=== PATIENT | female | born 1965 | race Caucasian/White ===

== ENCOUNTER 2016-11-14 17:43 | Emergency (ER) | payer BC, OTHER ==
[2016-11-14 17:48] VITALS: BP 131/87
[2016-11-14 18:35] LABS: APPEARANCE,URINE SLIGHTLY-CLOUDY; BILIRUBIN,URINE NEGATIVE (NEGATIVE); GLUCOSE, URINE NEGATIVE (NEGATIVE); KETONES,URINE NEGATIVE (NEGATIVE); LEUKOCYTE ESTERASE,URINE NEGATIVE (NEGATIVE); NITRITE,URINE NEGATIVE (NEGATIVE); PROTEIN,URINE NEGATIVE (NEGATIVE); URINE SPECIFIC GRAVITY 1.003; UROBILINOGEN,URINE NEGATIVE mg/dL (<2.0)
--- NOTE | 2016-11-14 18:44 | ER Document Report ---
ED General - General Chief Complaint: Flank Pain Stated Complaint: ABDOMINAL PAIN Time Seen by Provider: 11/14/16 18:40 Mode of Arrival: Ambulatory Information source: Patient Notes: Patient states she has had some burning in her urine approximate month ago this is now gone away and she just has flank pain. She does have some vomiting and diarrhea. She also states she has cough cold and congestion for 2 days. She states she has had kidney infections in the past. The pain is been constant. It is in the bilateral flanks. It radiates to the abdomen. Nothing makes it better or worse. It is an aching sensation. It is moderate. She is also had some subjective fever and chills at home. TRAVEL OUTSIDE OF THE [place] IN LAST 30 DAYS: No - Related Data Allergies/Adverse Reactions: beeswax [Beeswax] Allergy (Verified 11/14/16 17:48) ceftriaxone [From Rocephin] Allergy (Verified 11/14/16 17:48) erythromycin base [Erythromycin Base] Allergy (Verified 11/14/16 17:48) Penicillins Allergy (Verified 11/14/16 17:48) Past Medical History - General Information source: Patient - Social History Smoking Status: Current Every Day Smoker Chew tobacco use (# tins/day): No Frequency of alcohol use: Rare Drug Abuse: None Family History: Reviewed & Not Pertinent Neurological Medical History: Reports: Hx Migraine Renal/ Medical History: Denies: Hx Peritoneal Dialysis Past Surgical History: Reports: Hx Breast Surgery - bilateral, Hx Section - Immunizations Hx Diphtheria, Pertussis, Tetanus Vaccination: Yes Review of Systems - Review of Systems Constitutional: Chills, Fever, Malaise Cardiovascular: denies: Chest pain, Palpitations Respiratory: Cough Gastrointestinal: Diarrhea, Vomiting -: Yes All other systems reviewed and negative Physical Exam - Vital signs Vitals: Temp Pulse Resp BP Pulse Ox 98.5 F 81 18 131/87 H 96 11/14/16 17:46 11/14/16 17:46 11/14/16 17:46 11/14/16 17:46 11/14/16 17:46 Interpretation: Normal - General General appearance: Appears well, Alert - HEENT Head: Normocephalic, Atraumatic Eyes: Normal Pupils: PERRL - Respiratory Respiratory status: No respiratory distress Chest status: Nontender Breath sounds: Normal Chest palpation: Normal - Cardiovascular Rhythm: Regular Heart sounds: Normal auscultation Murmur: No - Abdominal Inspection: Normal Distension: No distension Bowel sounds: Normal Tenderness: Nontender Organomegaly: No organomegaly - Back Back: Normal, Nontender - Extremities General upper extremity: Normal inspection, Nontender, Normal color, Normal ROM , Normal temperature General lower extremity: Normal inspection, Nontender, Normal color, Normal ROM , Normal temperature, Normal weight bearing. No: Brielle's sign - Neurological Neuro grossly intact: Yes Cognition: Normal Orientation: AAOx4 Aba Coma Scale Eye Opening: Spontaneous [place] Coma Scale Verbal: Oriented [place] Coma Scale Motor: Obeys Commands [place] Coma Scale Total: 15 Speech: Normal Motor strength normal: LUE, RUE, LLE, RLE Sensory: Normal - Psychological Associated symptoms: Normal affect, Normal mood - Skin Skin Temperature: Warm Skin Moisture: Dry Skin Color: Normal Course - Vital Signs Vital signs: Temp Pulse Resp BP Pulse Ox 98.5 F 81 18 131/87 H 96 11/14/16 17:46 11/14/16 17:46 11/14/16 17:46 11/14/16 17:46 11/14/16 17:46 - Laboratory Laboratory results interpreted by me: 11/14/16 17:46 Urine Blood SMALL H Discharge - Discharge Clinical Impression: URI (upper respiratory infection) Condition: Stable Disposition: HOME, SELF-CARE Instructions: Upper Respiratory Illness ([facility]) Additional Instructions: Please follow-up with your primary care physician as soon as possible Prescriptions: Hydrocodone/Acetaminophen [[place] 5-325 mg Tablet] 1 tab PO Q6 PRN #15 tablet PRN Reason: Levofloxacin [Levaquin 750 mg Tablet] 750 mg PO DAILY #5 tablet Forms: Elevated Blood Pressure, Smoking Cessation Education
== END 2016-11-14 18:50 | disposition home or self-care (01) ==
LOC: ER 17:43
DX: J06.9 Acute upper respiratory infection, unspecified (principal); R10.9 Unspecified abdominal pain; R11.10 Vomiting, unspecified; R19.7 Diarrhea, unspecified; R05 Cough; F17.200 Nicotine dependence, unspecified, uncomplicated
CPT/HCPCS: 81001; 99284

== ENCOUNTER 2016-11-21 21:57 | Inpatient (IN) | payer SELFPAY ==
--- NOTE | 2016-11-21 23:42 | ER Document Report ---
ED General - General Chief Complaint: Flank Pain Stated Complaint: LOW BACK PAIN Time Seen by Provider: 11/21/16 23:22 TRAVEL OUTSIDE OF THE [place] IN LAST 30 DAYS: No - HPI Notes: Patient is a 50-year-old female with a history of kidney infections who presents the ED complaining of right flank pain 2-3 days. Patient states that she also has urinary frequency without any hematuria or dysuria. Patient states that she was here 1 week ago and was given Levaquin to take for 5 days for an upper respiratory infection while having flank pain at that time as well. Patient states that she was feeling better by the end of the antibiotics , but her flank pain returned. Patient still eating and drinking without any difficulties. Pt has associated nausea w/o vomiting intermittently. Patient states that she is having normal bowel movements. Nothing worsens or improves her pain that she is aware of. Pt has noticed general body ache as well. Pt was vomited once yesterday, none today. No nausea now. Pt is taking HCTZ. Patient also complains of a red area to her antecubital left space that is painful and warm to the touch that has been there for the last 1-2 days. Patient states that she noticed an insect bite to that area initially. She has not noticed any purulent discharge, streaking, or abscess formation. + smoker, denies IV drug use. Denies any headache, fever, URI, sore throat, chest pain, palpitations, syncope , cough, shortness of breath, wheeze, dyspnea, abdominal pain, diarrhea, urinary retention, vaginal discharge/odor/bleeding, loss of control of bowel or bladder, numbness/tingling, saddle anesthesia, muscle paralysis/weakness. - Related Data Allergies/Adverse Reactions: beeswax [Beeswax] Allergy (Verified 11/14/16 17:48) ceftriaxone [From Rocephin] Allergy (Verified 11/14/16 17:48) erythromycin base [Erythromycin Base] Allergy (Verified 11/14/16 17:48) Penicillins Allergy (Verified 11/14/16 17:48) Past Medical History - Social History Smoking Status: Current Every Day Smoker Family History: Reviewed & Not Pertinent Patient has suicidal ideation: No Patient has homicidal ideation: No Neurological Medical History: Reports: Hx Migraine Renal/ Medical History: Denies: Hx Peritoneal Dialysis Past Surgical History: Reports: Hx Breast Surgery - bilateral, Hx Section - Immunizations Hx Diphtheria, Pertussis, Tetanus Vaccination: Yes Review of Systems - Review of Systems Notes: REVIEW OF SYSTEMS: CONSTITUTIONAL : Denies fever, chills, or sweats. see hpi. EENT: Denies eye, ear, throat, or mouth pain or symptoms. Denies nasal or sinus congestion or discharge. Denies throat, tongue, or mouth swelling or difficulty swallowing. CARDIOVASCULAR: Denies chest pain. Denies palpitations or racing or irregular heart beat. Denies ankle edema. RESPIRATORY: Denies cough, cold, or chest congestion. Denies shortness of breath, difficulty breathing, or wheezing. GASTROINTESTINAL: see hpi GENITOURINARY: Denies difficulty urinating, painful urination, burning, frequency, blood in urine, or discharge. FEMALE GENITOURINARY: Denies vaginal bleeding, heavy or abnormal periods, irregular periods. Denies vaginal discharge or odor. MUSCULOSKELETAL: see hpi. Denies back or neck pain or stiffness. Denies joint pain or swelling. SKIN: Denies rash, lesions or sores. NEUROLOGICAL: Denies confusion or altered mental status. Denies passing out or loss of consciousness. Denies dizziness or lightheadedness. Denies headache. Denies weakness or paralysis or loss of use of either side. Denies problems with gait or speech. Denies sensory loss, numbness, or tingling. ALL OTHER SYSTEMS REVIEWED AND NEGATIVE. Dictation was performed using [employer] voice recognition software Physical Exam - Vital signs Vitals: Temp Pulse Resp BP Pulse Ox 99.2 F 89 18 121/84 100 11/21/16 22:28 11/21/16 22:28 11/21/16 22:28 11/21/16 22:28 11/21/16 22:28 Notes: PHYSICAL EXAMINATION: GENERAL: Well-appearing, well-nourished and in no acute distress. Comfortable sitting on exam table. HEAD: Atraumatic, normocephalic. EYES: Pupils equal round and reactive to light, extraocular movements intact, sclera anicteric, conjunctiva are normal. NECK: Normal range of motion, supple without lymphadenopathy. No rigidity. LUNGS: Breath sounds clear to auscultation bilaterally and equal. No wheezes rales or rhonchi. HEART: Regular rate and rhythm without murmurs, rubs, gallops. ABDOMEN: Soft, nontender, nondistended abdomen. No guarding, no rebound. No masses appreciated. hyperactive bowel sounds present. + rt CVA tenderness. Musculoskeletal: LE's b/l: FROM to passive/active. Strength 5+/5. Extremities: No cyanosis, clubbing, or edema b/l. Peripheral pulses 2+. Capillary refill less than 3 seconds. NEUROLOGICAL: Cranial nerves grossly intact. Normal speech, normal gait. Normal sensory, motor exams PSYCH: Normal mood, normal affect. SKIN: 3x3cm cellulitis (erythema, warmth, min. induration) lt antecubital space w/o abscess, streaks, discharge. Course - Re-evaluation Re-evalutation: 11/22/16 00:49 lab called with K+ of 2.3. Reviewed with Dr. Leal. KCl 80meq given PO and 20meq started IV Magnesium 2g over 20mins started IV as well Additional labs ordered along with EKG 11/22/16 03:02 EKG showed T wave depressions Hyponatremia noted mildly elevated wbc Dr. Leal recommended admission due to EKG changes Called and spoke with Dr. Marks who declined admission at this time and would like recheck labs after treatment has been running longer 11/22/16 05:25 Doxy 100mg given PO Patient does not have a provider listed in the system After discussion found out that Dr. Wheeler is her PCM Called Dr. Wheeler, awaiting return call. 2nd EKG shows U waves, BMP pending 11/22/16 05:33 Dr. Wheeler returned call and accepted patient for admit to [facility]. 11/22/16 05:35 Pt was noted to have decreasing O2 sat into the 80's. Recheck on patient and when she coughed to clear her throat, her O2 came back up to 95% on RA. 2L O2 via NC placed. Dr. Beauchamp was also consulted. 11/22/16 05:53 BMP showed continued K+ at 2.3. Pt with no new concerns or complaints. - Vital Signs Vital signs: Temp Pulse Resp BP Pulse Ox 99.2 F 89 18 92/61 L 96 11/21/16 22:28 11/21/16 22:28 11/22/16 05:36 11/22/16 05:01 11/22/16 05:36 - Laboratory Result Diagrams: 11/22/16 00:00 11/22/16 05:10 Laboratory results interpreted by me: 11/21/16 11/22/16 11/22/16 23:50 00:00 00:00 WBC 13.5 H RDW 14.9 H Absolute Neutrophils 9.9 H VBG pH VBG HCO3 Sodium 132.7 L Potassium 2.3 L* Chloride 89 L Carbon Dioxide 36 H BUN 5 L Glucose Calcium Creatine Kinase Urine Blood SMALL H 11/22/16 11/22/16 11/22/16 00:00 03:30 05:10 WBC RDW Absolute Neutrophils VBG pH 7.45 H VBG HCO3 32.7 H Sodium 134.8 L Potassium 2.3 L* Chloride 94 L Carbon Dioxide 34 H BUN 4 L Glucose 116 H Calcium 8.3 L Creatine Kinase 291 H Urine Blood Discharge - Discharge Clinical Impression: Hypokalemia Condition: Stable Disposition: ADMITTED INPATIENT Admitting Provider: Wheeler Unit Admitted: LUCERO
[2016-11-22 00:19] LABS: ABSOLUTE BASOPHILS # (AUTO) 0.1 10^3/uL (0.0-0.2); ABSOLUTE EOSINOPHILS # (AUTO) 0.2 10^3/uL (0.0-0.6); ABSOLUTE LYMPHOCYTES (AUTO) 2.4 10^3/uL (0.5-4.7); ABSOLUTE MONOCYTES (AUTO) 0.9 10^3/uL (0.1-1.4); ABSOLUTE NEUT (AUTO) 9.9 10^3/uL (1.7-8.2); BASOPHILS % (AUTO) 0.4 % (0-2); EOSINOPHILS % (AUTO) 1.4 % (0-6); HEMATOCRIT 36.4 % (36.0-47.0); HEMOGLOBIN 12.3 g/dL (12.0-15.5); HGB HCT DIFFERENCE 0.5; MEAN CORPUSCULAR HGB CONC 33.9 g/dL (32.0-36.0); MEAN CORPUSCULAR VOLUME 82 fl (80-97); MONOCYTES % (AUTO) 6.6 % (3-13); RED BLOOD COUNT 4.41 10^6/uL (3.72-5.28); RED CELL DISTRIBUTION WIDTH 14.9 % (11.5-14.0); SEGMENTED NEUTROPHILS % (AUTO) 73.6 % (42-78); WHITE BLOOD COUNT 13.5 10^3/uL (4.0-10.5)
[2016-11-22 00:27] LABS: ALANINE AMINOTRANSFERASE 22 U/L (9-52); ALBUMIN 4.1 g/dL (3.5-5.0); ALKALINE PHOSPHATASE 78 U/L (38-126); ANION GAP 8 (5-19); ASPARTATE AMINO TRANSFERASE 32 U/L (14-36); BILIRUBIN,DIRECT 0.4 mg/dL (0.0-0.4); BILIRUBIN,TOTAL 1.2 mg/dL (0.2-1.3); BLOOD UREA NITROGEN 5 mg/dL (7-20); CALCIUM 9.1 mg/dL (8.4-10.2); CARBON DIOXIDE 36 mmol/L (22-30); CHLORIDE 89 mmol/L (98-107); CREATININE RESULT 0.59 mg/dL (0.52-1.25); GLUCOSE 92 mg/dL (75-110); LIPASE 34.9 U/L (23-300); SODIUM 132.7 mmol/L (137-145); TOTAL PROTEIN 7.2 g/dL (6.3-8.2)
[2016-11-22 00:35] LABS: ADD ON TESTING BLD IN LAB ACKNOWLEDGE; POTASSIUM 2.3 mmol/L (3.6-5.0)
[2016-11-22] MEDS ORDERED: POTASSIUM CHLORIDE 10 MEQ TABLET.SA PO ONE ×6 (00:38→17:00)
[2016-11-22] MEDS ORDERED: POTASSI CL 20 MEQ/50 ML RIDER 20 MEQ/50 ML RTUPB IV ONE (00:41)
[2016-11-22 00:46] LABS: APPEARANCE,URINE CLEAR; BILIRUBIN,URINE NEGATIVE (NEGATIVE); GLUCOSE, URINE NEGATIVE (NEGATIVE); KETONES,URINE NEGATIVE (NEGATIVE); LEUKOCYTE ESTERASE,URINE NEGATIVE (NEGATIVE); NITRITE,URINE NEGATIVE (NEGATIVE); PROTEIN,URINE NEGATIVE (NEGATIVE); URINE SPECIFIC GRAVITY 1.004; UROBILINOGEN,URINE NEGATIVE mg/dL (<2.0)
[2016-11-22] MEDS ORDERED: MAGNESIUM OXIDE 400 MG TABLET PO ONE (00:53)
[2016-11-22] MEDS ORDERED: MAGNESIUM SULFATE/D5W 1 GM/100 ML RTUPB IV SCH (01:00)
[2016-11-22 01:20] LABS: MAGNESIUM 1.9 mg/dL (1.6-2.3)
[2016-11-22] MEDS ORDERED: MORPHINE SULFATE 10 MG/ML INJ IV ONE (03:31)
[2016-11-22 03:42] LABS: VENOUS BLOOD BASE EXCESS 7.5 mmol/L; VENOUS BLOOD HCO3 32.7 mmol/L (20-32); VENOUS BLOOD PCO2 48.3 mmHg (35-63); VENOUS BLOOD PH 7.45 (7.30-7.42)
[2016-11-22] MEDS ORDERED: DOXYCYCLINE HYCLATE 100 MG TABLET PO ONE (05:17)
[2016-11-22 05:40] LABS: ANION GAP 7 (5-19); BLOOD UREA NITROGEN 4 mg/dL (7-20); CALCIUM 8.3 mg/dL (8.4-10.2); CARBON DIOXIDE 34 mmol/L (22-30); CHLORIDE 94 mmol/L (98-107); CREATININE RESULT 0.54 mg/dL (0.52-1.25); GLUCOSE 116 mg/dL (75-110); SODIUM 134.8 mmol/L (137-145)
[2016-11-22 05:47] LABS: POTASSIUM 2.3 mmol/L (3.6-5.0)
[2016-11-22] MEDS ORDERED: IPRATROPIUM/ALBUTEROL 0.5-2.5 MG/3 ML AMPUL NEB PRN ×2 (08:18→14:00)
[2016-11-22] MEDS ORDERED: ACETAMINOPHEN 325 MG TABLET PO PRN (08:18)
[2016-11-22] MEDS ORDERED: ONDANSETRON HCL INJ/PF 4 MG/2 ML SDV IV PRN ×2 (08:18→14:00)
[2016-11-22] MEDS: ENOXAPARIN SODIUM INJ 40 MG/0.4 ML DISP.SYRIN SUBCUT SCH (09:23)
[2016-11-22] MEDS: POTASSI CL 40 MEQ/NS 1L 1,000 ML IV PRN (09:23)
[2016-11-22 09:28] LABS: ANION GAP 7 (5-19); BLOOD UREA NITROGEN 4 mg/dL (7-20); CALCIUM 8.5 mg/dL (8.4-10.2); CARBON DIOXIDE 34 mmol/L (22-30); CHLORIDE 95 mmol/L (98-107); CREATININE RESULT 0.55 mg/dL (0.52-1.25); GLUCOSE 93 mg/dL (75-110)
[2016-11-22 09:34] LABS: POTASSIUM 2.4 mmol/L (3.6-5.0)
[2016-11-22 09:40] LABS: CREATINE KINASE MB 3.43 ng/mL (<4.55)
[2016-11-22 09:42] LABS: TROPONIN I < 0.012 ng/mL
--- NOTE | 2016-11-22 10:01 | EKG REPORT ---
SEVERITY:- ABNORMAL ECG - SINUS RHYTHM LOW VOLTAGE IN FRONTAL LEADS REPOL ABNRM SUGGESTS ISCHEMIA, ANT-LAT LEADS PROLONGED QT INTERVAL : Confirmed by: Bri Prieto MD 22-Nov-2016 10:01:22
--- NOTE | 2016-11-22 10:02 | EKG REPORT ---
SEVERITY:- ABNORMAL ECG - SINUS RHYTHM REPOL ABNRM SUGGESTS ISCHEMIA, ANT-LAT LEADS PROLONGED QT INTERVAL : Confirmed by: Bri Prieto MD 22-Nov-2016 10:01:43
--- NOTE | 2016-11-22 10:12 | RADIOLOGY REPORT (SQ) ---
EXAM DESCRIPTION: CT ABD/PELVIS NO ORAL OR IV COMPLETED DATE/TIME: 11/22/2016 9:52 am REASON FOR STUDY: flank pain COMPARISON: None. TECHNIQUE: CT scan of the abdomen and pelvis performed without intravenous or oral contrast. Images reviewed with lung, soft tissue, and bone windows. Reconstructed coronal and sagittal MPR images revi ewed. All images stored on PACS. All CT scanners at this facility use dose modulation, iterative reconstruction, and/or weight based d osing when appropriate to reduce radiation dose to as low as reasonably achievable (ALARA). [facility]: Dose Right [facility]: CareDose [facility]: Dose Right [facility]: Teradose 4D [facility]: Smart Technologies RADIATION DOSE: Up-to-date CT equipment and radiation dose reduction techniques were employed. CTDIv ol: 6.4 mGy. DLP: 332 mGy-cm.mGy. LIMITATIONS: None. FINDINGS: LOWER CHEST: Ground-glass opacities in the lower lobes. NON-CONTRASTED LIVER, SPLEEN, ADRENALS: Evaluation limited by lack of IV contrast. No identified sign ificant masses. PANCREAS: No masses. No peripancreatic inflammatory changes. GALLBLADDER: Surgically absent. RIGHT KIDNEY AND URETER: No suspicious masses. Assessment limited by lack of IV contrast. No signif icant calcifications. No hydronephrosis or hydroureter. LEFT KIDNEY AND URETER: No suspicious masses. Assessment limited by lack of IV contrast. No signifi cant calcifications. No hydronephrosis or hydroureter. AORTA AND RETROPERITONEUM: No aneurysm. No retroperitoneal masses or adenopathy. BOWEL AND PERITONEAL CAVITY: No obvious masses or inflammatory changes. No free fluid. APPENDIX: Normal. PELVIS, BLADDER, AND ABDOMINAL WALL:No abnormal masses. No free fluid. Bladder normal. BONES: No significant findings. OTHER: No other significant finding. IMPRESSION: 1. NO SIGNIFICANT OR ACUTE PROCESS IN THE ABDOMEN OR PELVIS. 2. GROUND-GLASS OPACITIES IN THE LUNG BASES. NONSPECIFIC BUT POSSIBLE ETIOLOGIES INCLUDE PNEUMONIA, PNEUMONITIS, EDEMA, OR HEMORRHAGE. COMMENT: Quality ID # [id number]: Final reports with documentation of one or more dose reduction techniques (e.g., Automated exposure control, adjustment of the mA and/or kV according to patient size, use of iterative reconstruction technique) TECHNICAL DOCUMENTATION: JOB ID: [id number]- All Rights Reserved
--- NOTE | 2016-11-22 11:14 | PDOC CONSULTATION ---
Consultation Consult Date: 11/22/16 Attending physician:: CONCETTA BLANTON Consult reason:: Abnormal EKG History of Present Illness Admission Date/PCP: 11/22/16 08:18 Patient complains of: Generalized weakness History of Present Illness: ALLYSON OVERTON is a 50-year-old female with a history of kidney infections who presents the ED complaining of right flank pain 2-3 days. Patient states that she also has urinary frequency without any hematuria or dysuria. Patient states that she was here 1 week ago and was given Levaquin to take for 5 days for an upper respiratory infection while having flank pain at that time as well. Patient states that she was feeling better by the end of the antibiotics , but her flank pain returned. Patient still eating and drinking without any difficulties. Pt has associated nausea w/o vomiting intermittently. Patient states that she is having normal bowel movements and also some diarrhea intermittently. Nothing worsens or improves her pain that she is aware of. Pt has noticed general body ache as well. Pt was vomited once yesterday, none today. No nausea now. Pt is taking HCTZ, which she claims she takes for fluid retention.. Patient also complains of a red area to her antecubital left space that is painful and warm to the touch that has been there for the last 1-2 days. Patient states that she noticed an insect bite to that area initially. She has not noticed any purulent discharge, streaking, or abscess formation. + smoker, denies IV drug use. Denies any headache, fever, URI, sore throat, chest pain, palpitations, syncope , cough, shortness of breath, wheeze, dyspnea, abdominal pain, diarrhea, urinary retention, vaginal discharge/odor/bleeding, loss of control of bowel or bladder, numbness/tingling, saddle anesthesia, muscle paralysis/weakness. During hospitalization patient had EKGs performed which shows significant abnormalities. I was therefore asked to evaluate patient. A 2D echo was performed which is yet to be reviewed. Past Medical History Neurological Medical History: Reports: Migraine Past Surgical History Past Surgical History: Reports: Section Social History Information Source: Patient Smoking Status: Current Every Day Smoker Cigarettes Packs Per Day: 0.5 Number of Years Smokin Last Time Smoked: 11/21/2016 Frequency of Alcohol Use: None Hx Recreational Drug Use: No Drugs: None Hx Prescription Drug Abuse: No - Advance Directive Resuscitation Status: Full Code Surrogate healthcare decision maker:: Patient siblings Family History Family History: Hypertension Parental Family History Reviewed: Yes Children Family History Reviewed: Yes Sibling(s) Family History Reviewed.: Yes Medication/Allergy Home Medications: Buprenorphine HCl [Subutex 8 mg Sublingual Tablet] 8 mg PO Q12 11/22/16 Dextroamphetamine/Amphetamine [Adderall 20 mg Tablet] 20 mg PO DAILY 11/22/16 Fluoxetine HCl [Prozac] 40 mg PO DAILY 11/22/16 Gabapentin [Neurontin] 600 mg PO Q8H 11/22/16 Hydrochlorothiazide [Hydrodiuril 25 mg Tablet] 25 mg PO DAILY 11/22/16 Trazodone HCl [Desyrel] 150 mg PO QHS 11/22/16 Allergies/Adverse Reactions: beeswax [Beeswax] Allergy (Verified 11/14/16 17:48) ceftriaxone [From Rocephin] Allergy (Verified 11/14/16 17:48) erythromycin base [Erythromycin Base] Allergy (Verified 11/14/16 17:48) Penicillins Allergy (Verified 11/14/16 17:48) Review of Systems Review of Systems: Please see history of present illness and past medical history as wall. Constitutional: No fever or chills reported. Head : No recent chronic headaches, recent head injury. Eyes: No recent eye pain, diplopia, redness, discharge, acute visual changes. Ears: No recent chronic ear pain, acute hearing loss, ear discharge. Oral cavity: No recent ulcerations, bleeding, oral cavity discomfort. Neck: No recent acute neck pain reported. Hematologic: No recent easy bruising or bleeding or hematologic malignancy reported. Lymphatic: No recent lymphatic malignancy, chronic lymphadenopathy reported yet Cardiovascular system review: See history of present illness. Prior history of myocardial infarction, angina, congestive heart failure. Respiratory system review: No recent chronic cough, hemoptysis, blood clots in the lungs reported. Mild Shortness of breath on exertion Gastrointestinal system review: Negative for any recent acute or chronic abdominal pain, hematemesis, melena, recent diarrhea reported. Genitourinary system review: No recent acute or chronic hematuria, flank pain, history of recurrent UTI. Skin system review: Negative for any recent abnormal bruising, no rash, and has noted mild pruritus and mild rash recently. Neurologic: No prior history of strokes, mini strokes, seizure disorder. Psychologic: No history of major psychosis or major depression reported. Musculoskeletal: Minor aches and pains reported. No acute joint swelling reported. Endocrine: No recent polyuria, polydipsia, recent heat or cold intolerance. Physical Exam Vital Signs: Temp Pulse Resp BP Pulse Ox 99.5 F 71 20 113/69 92 11/22/16 08:10 11/22/16 08:12 11/22/16 08:10 11/22/16 08:10 11/22/16 08:10 Exam: GENERAL: well-nourished and in no acute distress. Alert and oriented x3 HEAD: Atraumatic, normocephalic. EYES: Pupils equal round and reactive to light, extraocular movements intact, sclera anicteric, conjunctiva are normal. ENT: TMs normal, nares patent, oropharynx clear without exudates. Moist mucous membranes. No oral ulcerations or bleeding gums noted NECK: supple without lymphadenopathy. Trachea is central. No cervical or axillary lymphadenopathy noted. Carotids are 2+, JVD WNL LUNGS: Respiration seems nonlabored, no significant accessory muscle action noted. Breath sounds clear to auscultation bilaterally and equal noted. No wheezes rales or rhonchi noted. No significant dullness noted on percussion. CHEST: Palpation of the chest wall shows no significant chest wall tenderness. No other significant abnormalities noted. 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 ABDOMEN: Soft, no significant tenderness appreciated, normoactive bowel sounds. No guarding, no rebound. No rigidity noted . No masses appreciated. EXTREMITIES: Pedal pulses are 1-2+, no calf tenderness noted. No clubbing or cyanosis.trace to 1+ pedal edema noted NEUROLOGICAL: Focused neurological exam showed no significant neurologic deficit. Normal speech, no focal weakness appreciated. PSYCH: Normal mood, normal affect. Judgment and insight within normal limits. SKIN: No significant ecchymosis, mild rash and some signs of pruritus noted. No significant ulcerations noted. MUSCULOSKELETAL EXAM: No significant joint swelling noted. Results Laboratory Results: 11/22/16 08:55 11/22/16 08:55 Sodium 136.0 L Potassium 2.4 L* Chloride 95 L Carbon Dioxide 34 H Anion Gap 7 BUN 4 L Creatinine 0.55 Est GFR ( Amer) > 60 Est GFR (Non-Af Amer) > 60 Glucose 93 Calcium 8.5 11/22/16 11/22/16 08:55 08:55 Creatine Kinase 205 H CK-MB (CK-2) 3.43 Troponin I < 0.012 EKG Comments: Sinus rhythm, significant T-wave inversion noted anterior precordial leads consistent with ischemia but could well be related to severe hypokalemia Impressions: Abdomen/Pelvis CT 11/22/16 00:00 IMPRESSION: 1. NO SIGNIFICANT OR ACUTE PROCESS IN THE ABDOMEN OR PELVIS. 2. GROUND-GLASS OPACITIES IN THE LUNG BASES. NONSPECIFIC BUT POSSIBLE ETIOLOGIES INCLUDE PNEUMONIA, PNEUMONITIS, EDEMA, OR HEMORRHAGE. Assessment & Plan - Diagnosis (1) Abnormal electrocardiogram Is this a current diagnosis for this admission?: Yes (2) Hypokalemia Is this a current diagnosis for this admission?: Yes (3) Pulmonary infiltrate present on computed tomography Is this a current diagnosis for this admission?: Yes - Notes Notes: Abnormal electrocardiogram: Most likely related to severe hypokalemia. Need to rule out hypomagnesemia. Recommend aggressive correction and repeat EKG. Agree with obtaining cardiac enzymes. Once hypokalemia resolved, will recommend stress test but this can be performed as an outpatient. 2D echo already been obtained will be reviewed. Hypokalemia: Could be related to HCTZ and diarrhea. Patient already on aggressive replacement protocol. Will make sure that magnesium level is also corrected. Pulmonary infiltrates noted on EKG consistent with pneumonia versus edema. 2D echo will be reviewed. Will obtain a BNP level. Patient may benefit from switch to furosemide which may not cause as much hypokalemia as HCTZ. Will continue to follow patient. As usual I thank Dr. Blanton for the kind consultation. - Time Time Spent: 30 to 50 Minutes - CODE STATUS was discussed, patient remains full code. Surrogate decision-maker unchanged. Multiple medical problems were addressed. More than 50% of the time spent coordinating care, discussing management plans with involved caregivers. Management plans discussed with involved personnels. Medical decision making was of moderate to high complexity , patient's has multiple comorbidities. Medications reviewed and adjusted accordingly: Yes
[2016-11-22] MEDS ORDERED: POTASSIUM CHLORIDE 20 MEQ/50 ML RTU IV ONE ×2 (12:00→17:00)
--- NOTE | 2016-11-22 12:14 | XCELERA REPORT ---
[address] [address] Transthoracic Echocardiogram Report Name: ALLYSON OVERTON Age: 50 yrs Gender: Female : 1965 Patient Status: Inpatient Patient Location: [address] [place] [address] Study Date: 11/22/2016 08:43 AM Height: 66 in Weight: 172 lb BSA: 1.9 m2 Procedure: A complete two-dimensional transthoracic echocardiogram was performed (2D, M-mode, spectral and color flow Doppler). The study was technically adequate with some images being suboptimal in quality. Reason For Study: edema/abnormal ekg Ordering Physician: CONCETTA BLANTON Performed By: Grace Thomas Interpretation Summary The left ventricular ejection fraction is normal. There is borderline concentric left ventricular hypertrophy. Doppler measurements suggest impaired left ventricular relaxation, which is associated with grade I/IV or mild diastolic dysfunction The left ventricle is grossly normal size. Wall motion cannot be accurately commented on, but no definite regional wall motion abnormalities noted. The right ventricular systolic function is normal. The right atrium is normal. The left atrial size is normal. There is no mitral valve stenosis. There is a trace amount of mitral regurgitation There is no aortic valve stenosis No aortic regurgitation is present. There is a mild amount of tricuspid regurgitation There is mild pulmonary hypertension by echo Right ventricular systolic pressure is estimated to be elevated at approx 40mmHg. There is no pericardial effusion. MMode/2D Measurements & Calculations RVDd: 2.9 cm LVIDd: 4.4 cm FS: 49.5 % Ao root diam: 2.9 cm IVSd: 0.89 cm LVIDs: 2.2 cm EDV(Teich): 88.9 ml LVPWd: 0.87 cm ESV(Teich): 16.8 ml Ao root area: 6.5 cm2 EF(Teich): 81.1 % LA dimension: 3.0 cm Doppler Measurements & Calculations MV E max ximena: MV P1/2t max ximena: Ao V2 max: LV V1 max P.0 cm/sec 80.5 cm/sec 122.2 cm/sec 4.0 mmHg MV A max ximena: MV P1/2t: 77.7 msec Ao max PG: LV V1 max: 77.5 cm/sec 6.0 mmHg 100.2 cm/sec MV E/A: 1.0 MVA(P1/2t): 2.8 cm2 MV dec slope: 303.4 cm/sec2 MV dec time: 0.24 sec PA V2 max: TR max ximena: 89.8 cm/sec 294.5 cm/sec PA max PG: TR max P.7 mmHg 3.2 mmHg Left Ventricle The left ventricle is grossly normal size. There is borderline concentric left ventricular hypertrophy. The left ventricular ejection fraction is normal. Doppler measurements suggest impaired left ventricular relaxation, which is associated with grade I/IV or mild diastolic dysfunction. Wall motion cannot be accurately commented on, but no definite regional wall motion abnormalities noted. Right Ventricle The right ventricle is normal in size, thickness and function. There is normal right ventricular wall thickness. The right ventricular systolic function is normal. Atria The right atrium is normal. The left atrial size is normal. Interarterial septum not well visualized and not well dopplered. Cannot comment on ASD/PFO presence. Mitral Valve The mitral valve is grossly normal. There is no mitral valve stenosis. There is a trace amount of mitral regurgitation. Aortic Valve The aortic valve is grossly normal. There is no aortic valve stenosis. No aortic regurgitation is present. Tricuspid Valve The tricuspid valve is not well visualized, but is grossly normal. There is no tricuspid stenosis. There is a mild amount of tricuspid regurgitation. There is mild pulmonary hypertension by echo. Right ventricular systolic pressure is estimated to be elevated at 30-40mmHg. Pulmonic Valve The pulmonic valve is not well seen, but is grossly normal. Great Vessels The aortic root is not well visualized but is probably normal size. The inferior vena cava appeared normal and decreased > 50% with respiration (RAP 5-10 mmHg). Effusions There is no pericardial effusion. : CONCETTA BLANTON > Magaly Pierce
--- NOTE | 2016-11-22 12:56 | PDOC H&P ---
History of Present Illness Admission Date/PCP: 11/22/16 08:18 History of Present Illness: ALLYSON OVERTON is a 50-year-old female with a history of kidney infections who presents the ED complaining of right flank pain 2-3 days. Patient states that she also has urinary frequency without any hematuria or dysuria. Patient states that she was here 1 week ago and was given Levaquin to take for 5 days for an upper respiratory infection while having flank pain at that time as well. Patient states that she was feeling better by the end of the antibiotics , but her flank pain returned. Patient still eating and drinking without any difficulties. Pt has associated nausea w/o vomiting intermittently. Patient states that she is having normal bowel movements and also some diarrhea intermittently. Nothing worsens or improves her pain that she is aware of. Pt has noticed general body ache as well. Pt was vomited once yesterday, none today. No nausea now. Pt is taking HCTZ, which she claims she takes for fluid retention.. Patient also complains of a red area to her antecubital left space that is painful and warm to the touch that has been there for the last 1-2 days. Patient states that she noticed an insect bite to that area initially. She has not noticed any purulent discharge, streaking, or abscess formation. + smoker, denies IV drug use. Denies any headache, fever, URI, sore throat, chest pain, palpitations, syncope , cough, shortness of breath, wheeze, dyspnea, abdominal pain, diarrhea, urinary retention, vaginal discharge/odor/bleeding, loss of control of bowel or bladder, numbness/tingling, saddle anesthesia, muscle paralysis/weakness. Patient also complaining some chiropractic bite Patient's initial workup in the ER with the potassium was very low and the patient have elevated white count When I saw the patient's patient still complains of bilateral back pain Patient have a history of the neuropathy in the depressions Still smokThe patient Take the hydrochlorothiazide because of the swelling in the leg and the bodyI am not sure they really patients taking the 1 tablet and may be a more than 1 tablet Past Medical History Cardiac Medical History: Reports: Hypertension Neurological Medical History: Reports: Migraine Psychiatric Medical History: Reports: Depression Past Surgical History Past Surgical History: Reports: Section Social History Smoking Status: Current Every Day Smoker Cigarettes Packs Per Day: 0.5 Number of Years Smokin Last Time Smoked: 11/21/2016 Frequency of Alcohol Use: None Hx Recreational Drug Use: No Drugs: None Hx Prescription Drug Abuse: No - Advance Directive Resuscitation Status: Full Code Family History Family History: Reviewed & Not Pertinent, Hypertension Parental Family History Reviewed: Yes Children Family History Reviewed: Yes Sibling(s) Family History Reviewed.: Yes Medication/Allergy Home Medications: Buprenorphine HCl [Subutex 8 mg Sublingual Tablet] 8 mg PO Q12 11/22/16 Dextroamphetamine/Amphetamine [Adderall 20 mg Tablet] 20 mg PO DAILY 11/22/16 Fluoxetine HCl [Prozac] 40 mg PO DAILY 11/22/16 Gabapentin [Neurontin] 600 mg PO Q8H 11/22/16 Hydrochlorothiazide [Hydrodiuril 25 mg Tablet] 25 mg PO DAILY 11/22/16 Trazodone HCl [Desyrel] 150 mg PO QHS 11/22/16 Allergies/Adverse Reactions: beeswax [Beeswax] Allergy (Verified 11/14/16 17:48) ceftriaxone [From Rocephin] Allergy (Verified 11/14/16 17:48) erythromycin base [Erythromycin Base] Allergy (Verified 11/14/16 17:48) Penicillins Allergy (Verified 11/14/16 17:48) Review of Systems Constitutional: ABSENT: chills, fever(s), headache(s), weight gain, weight loss Eyes: ABSENT: visual disturbances Ears: ABSENT: hearing changes Cardiovascular: ABSENT: chest pain, dyspnea on exertion, edema, orthropnea, palpitations Respiratory: PRESENT: cough. ABSENT: hemoptysis Gastrointestinal: ABSENT: abdominal pain, constipation, diarrhea, hematemesis, hematochezia, nausea, vomiting Genitourinary: ABSENT: dysuria, hematuria Musculoskeletal: ABSENT: joint swelling Integumentary: ABSENT: rash, wounds Neurological: ABSENT: abnormal gait, abnormal speech, confusion, dizziness, focal weakness, syncope Psychiatric: ABSENT: anxiety, depression, homidical ideation, suicidal ideation Endocrine: ABSENT: cold intolerance, heat intolerance, menstrual abnormalities, polydipsia, polyuria Hematologic/Lymphatic: ABSENT: easy bleeding, easy bruising, lymphadenopathy Physical Exam Vital Signs: Temp Pulse Resp BP Pulse Ox 98.8 F 74 19 90/57 L 91 L 11/22/16 11:55 11/22/16 11:55 11/22/16 11:55 11/22/16 11:55 11/22/16 11:55 General appearance: PRESENT: no acute distress, well-developed, well-nourished Head exam: PRESENT: atraumatic, normocephalic Eye exam: PRESENT: conjunctiva pink, EOMI, PERRLA. ABSENT: scleral icterus Ear exam: PRESENT: normal external ear exam Mouth exam: PRESENT: moist, tongue midline Neck exam: PRESENT: full ROM. ABSENT: carotid bruit, JVD, lymphadenopathy, thyromegaly Respiratory exam: PRESENT: clear to auscultation [place] Cardiovascular exam: PRESENT: RRR. ABSENT: diastolic murmur, rubs, systolic murmur Pulses: PRESENT: normal dorsalis pedis pul, +2 pedal pulses bilateral Vascular exam: PRESENT: normal capillary refill GI/Abdominal exam: PRESENT: normal bowel sounds, soft. ABSENT: distended, guarding, mass, organolmegaly, rebound, tenderness Rectal exam: PRESENT: deferred Extremities exam: PRESENT: full ROM. ABSENT: pedal edema Additional comments: The left antecubital fossa some mild redness is present Neurological exam: PRESENT: alert, awake, oriented to person, oriented to place , oriented to time, oriented to situation, CN II-XII grossly intact. ABSENT: motor sensory deficit Psychiatric exam: PRESENT: appropriate affect, normal mood. ABSENT: homicidal ideation, suicidal ideation Skin exam: PRESENT: dry, intact, warm. ABSENT: cyanosis, rash Results Laboratory Results: 11/22/16 08:55 11/22/16 08:55 Sodium 136.0 L Potassium 2.4 L* Chloride 95 L Carbon Dioxide 34 H Anion Gap 7 BUN 4 L Creatinine 0.55 Est GFR ( Amer) > 60 Est GFR (Non-Af Amer) > 60 Glucose 93 Calcium 8.5 11/22/16 11/22/16 08:55 08:55 Creatine Kinase 205 H CK-MB (CK-2) 3.43 Troponin I < 0.012 Impressions: Abdomen/Pelvis CT 11/22/16 00:00 IMPRESSION: 1. NO SIGNIFICANT OR ACUTE PROCESS IN THE ABDOMEN OR PELVIS. 2. GROUND-GLASS OPACITIES IN THE LUNG BASES. NONSPECIFIC BUT POSSIBLE ETIOLOGIES INCLUDE PNEUMONIA, PNEUMONITIS, EDEMA, OR HEMORRHAGE. Assessment & Plan - Diagnosis (1) Hypokalemia Is this a current diagnosis for this admission?: Yes Plan: Most likely a possible to the hydrochlorothiazide and patient had of this problem in the before according to the patient Will replace the potassium start on IV fluid with the potassium And currently stop the hydrochlorothiazide (2) Flank pain Is this a current diagnosis for this admission?: Yes Plan: I do not see any CVA tenderness will get the CT abdomen and pelvis without contrast to rule out other etiology (3) Abnormal electrocardiogram Is this a current diagnosis for this admission?: Yes Plan: Most likely underlying hypokalemia but will get the echocardiogram and consult the cardiology while the patient is complaining of swelling all the time to further evaluate (4) Neuropathy Is this a current diagnosis for this admission?: Yes Plan: Patient is currently taking the gabapentin (5) Depression Qualifiers: Depression Type: major depressive disorder Is this a current diagnosis for this admission?: Yes Plan: Continues to current medication (6) Smoker Is this a current diagnosis for this admission?: Yes Plan: Discussed with the patient about the smoking cessation (7) Hypertension Qualifiers: Hypertension type: essential hypertension Qualified Code(s): I10 - Essential (primary) hypertension Is this a current diagnosis for this admission?: Yes Plan: Currently stable (8) Leukocytosis Qualifiers: Leukocytosis type: unspecified Qualified Code(s): D72.829 - Elevated white blood cell count, unspecified Is this a current diagnosis for this admission?: Yes Plan: We will get the chest x-ray to rule out any pneumonia that the blood culture urine culture and continues to doxycycline (9) Left arm cellulitis Is this a current diagnosis for this admission?: Yes Plan: Patient says history of the tick bites will continues to doxycycline and warm compressions - Time Time Spent: 30 to 50 Minutes Medications reviewed and adjusted accordingly: Yes Anticipated discharge: Home Within: Other - Inpatient Certification Medical Necessity: Need For IV Fluids, Need for IV Antibiotics Post Hospital Care: D/C [facility] Consultant Documentation - Plan Summary Plan Summary: See other MD orders
--- NOTE | 2016-11-22 13:24 | RADIOLOGY REPORT (SQ) ---
EXAM DESCRIPTION: CHEST PA/LAT COMPLETED DATE/TIME: 11/22/2016 1:16 pm REASON FOR STUDY: cough COMPARISON: CT abdomen and pelvis done earlier in the day. EXAM PARAMETERS: NUMBER OF VIEWS: two views TECHNIQUE: Digital Frontal and Lateral radiographic views of the chest acquired. RADIATION DOSE: NA LIMITATIONS: none FINDINGS: LUNGS AND PLEURA: Hazy faint densities in the lower lobes. No pleural effusion. No pneum othorax. MEDIASTINUM AND HILAR STRUCTURES: No masses or contour abnormalities. HEART AND VASCULAR STRUCTURES: Heart normal size. No evidence for failure. BONES: No acute findings. HARDWARE: Clips in the upper abdomen. OTHER: No other significant finding. IMPRESSION: HAZY LOWER LOBE DENSITIES WHICH CORRESPOND WITH FINDINGS ON CT. POSSIBLE EARLY INFILTRA SERGO. TECHNICAL DOCUMENTATION: JOB ID: [id number] [employer]- All Rights Reserved
[2016-11-22] MEDS ORDERED: LEVOFLOXACIN 500 MG/D5W RTU 500 MG/100 ML RTUPB IV ONE (14:00)
[2016-11-22] MEDS ORDERED: NORMAL SALINE 1000 ML 1,000 ML IV ONE (15:43)
[2016-11-22 15:49] LABS: CREATINE KINASE MB 2.69 ng/mL (<4.55)
[2016-11-22 15:50] LABS: TROPONIN I < 0.012 ng/mL
[2016-11-22] MEDS: LANSOPRAZOLE 15 MG TAB.RAP.DR PO SCH (16:17)
[2016-11-22] MEDS: BACITRACIN ZINC OINTMENT 15 GM TP SCH (17:22)
[2016-11-22 20:19] LABS: BLOOD UREA NITROGEN 6 mg/dL (7-20); CALCIUM 7.7 mg/dL (8.4-10.2); CREATININE RESULT 0.56 mg/dL (0.52-1.25); GLUCOSE 114 mg/dL (75-110)
[2016-11-22 20:32] LABS: CREATINE KINASE MB 2.36 ng/mL (<4.55)
[2016-11-22 20:39] LABS: TROPONIN I < 0.012 ng/mL
[2016-11-22 20:43] LABS: ANION GAP 7 (5-19); CARBON DIOXIDE 26 mmol/L (22-30); CHLORIDE 107 mmol/L (98-107); POTASSIUM 3.8 mmol/L (3.6-5.0); SODIUM 139.8 mmol/L (137-145)
[2016-11-22] MEDS: GABAPENTIN 400 MG CAPSULE PO PRN (21:52)
[2016-11-22] MEDS: DOXYCYCLINE HYCLATE 100 MG TABLET PO SCH (21:52)
[2016-11-23] MEDS: POTASSI CL 40 MEQ/NS 1L 1,000 ML IV PRN (00:15)
[2016-11-23] MEDS: LANSOPRAZOLE 15 MG TAB.RAP.DR PO SCH ×2 (05:10→15:59)
[2016-11-23 05:18] LABS: BLOOD UREA NITROGEN 5 mg/dL (7-20); CALCIUM 8.1 mg/dL (8.4-10.2); CREATININE RESULT 0.55 mg/dL (0.52-1.25); GLUCOSE 81 mg/dL (75-110)
[2016-11-23 05:26] LABS: HEMATOCRIT 29.9 % (36.0-47.0); HGB HCT DIFFERENCE 0.4; LYMPHOCYTES % (AUTO) 44.2 % (13-45); MEAN CORPUSCULAR HEMOGLOBIN 28.6 pg (27.0-33.4); MEAN CORPUSCULAR HGB CONC 33.7 g/dL (32.0-36.0); MEAN CORPUSCULAR VOLUME 85 fl (80-97); RED BLOOD COUNT 3.52 10^6/uL (3.72-5.28); RED CELL DISTRIBUTION WIDTH 15.5 % (11.5-14.0); SEGMENTED NEUTROPHILS % (AUTO) 43.1 % (42-78); WHITE BLOOD COUNT 6.8 10^3/uL (4.0-10.5)
[2016-11-23 05:27] LABS: ABSOLUTE EOSINOPHILS # (AUTO) 0.2 10^3/uL (0.0-0.6); ABSOLUTE MONOCYTES (AUTO) 0.6 10^3/uL (0.1-1.4); ABSOLUTE NEUT (AUTO) 2.9 10^3/uL (1.7-8.2); BASOPHILS % (AUTO) 0.5 % (0-2); EOSINOPHILS % (AUTO) 3.2 % (0-6)
[2016-11-23 05:28] LABS: CARBON DIOXIDE 27 mmol/L (22-30); CHLORIDE 108 mmol/L (98-107); HEMOGLOBIN 10.1 g/dL (12.0-15.5); SODIUM 138.7 mmol/L (137-145)
[2016-11-23 05:36] LABS: ANION GAP 4 (5-19)
[2016-11-23] MEDS: GABAPENTIN 400 MG CAPSULE PO PRN (06:59)
--- NOTE | 2016-11-23 09:04 | PDOC PROGRESS REPORT ---
Subjective Progress Note for:: 11/23/16 Subjective:: Patient is currently doing much better. Patient's denied any chest pain denied any shortness of the breath Patient still having some mild cough Patient's denied any abdominal pain no nausea no vomiting Patients have a CT abdomen pelvis was doneWas all normal Patient seen by cardiology and echocardiogram was done was all stable Since blood pressure was running in the lower and but according to the patient patient always have a low blood pressure in the 90 range Physical Exam Vital Signs: Temp Pulse Resp BP Pulse Ox 98.5 F 75 19 118/72 91 L 11/23/16 07:14 11/23/16 07:14 11/23/16 07:14 11/23/16 07:14 11/23/16 07:14 Intake & Output 11/22/16 11/23/16 11/24/16 06:59 06:59 06:59 Intake Total 3944 Output Total 1 Balance 3943 Weight 82.7 kg General appearance: PRESENT: no acute distress, well-developed, well-nourished Head exam: PRESENT: atraumatic, normocephalic Eye exam: PRESENT: conjunctiva pink, EOMI, PERRLA. ABSENT: scleral icterus Ear exam: PRESENT: normal external ear exam Mouth exam: PRESENT: moist, tongue midline Neck exam: PRESENT: full ROM. ABSENT: carotid bruit, JVD, lymphadenopathy, thyromegaly Respiratory exam: PRESENT: clear to auscultation [place] Cardiovascular exam: PRESENT: RRR. ABSENT: diastolic murmur, rubs, systolic murmur Pulses: PRESENT: normal dorsalis pedis pul, +2 pedal pulses bilateral Vascular exam: PRESENT: normal capillary refill GI/Abdominal exam: PRESENT: normal bowel sounds, soft. ABSENT: distended, guarding, mass, organolmegaly, rebound, tenderness Rectal exam: PRESENT: deferred Neurological exam: PRESENT: alert, awake, oriented to person, oriented to place , oriented to time, oriented to situation, CN II-XII grossly intact. ABSENT: motor sensory deficit Psychiatric exam: PRESENT: appropriate affect, normal mood. ABSENT: homicidal ideation, suicidal ideation Skin exam: PRESENT: dry, intact, warm. ABSENT: cyanosis, rash Results Laboratory Results: 11/23/16 04:38 11/23/16 04:38 11/22/16 11/22/16 11/22/16 08:55 14:43 19:50 WBC RBC Hgb Hct MCV MCH MCHC RDW Plt Count Seg Neutrophils % Lymphocytes % Monocytes % Eosinophils % Basophils % Absolute Neutrophils Absolute Lymphocytes Absolute Monocytes Absolute Eosinophils Absolute Basophils Sodium 136.0 L 139.8 Potassium 2.4 L* 2.9 L* 3.8 Chloride 95 L 107 Carbon Dioxide 34 H 26 Anion Gap 7 7 BUN 4 L 6 L Creatinine 0.55 0.56 Est GFR ( Amer) > 60 > 60 Est GFR (Non-Af Amer) > 60 > 60 Glucose 93 114 H Calcium 8.5 7.7 L Magnesium 11/23/16 11/23/16 04:38 04:38 WBC 6.8 RBC 3.52 L Hgb 10.1 L D Hct 29.9 L MCV 85 MCH 28.6 MCHC 33.7 RDW 15.5 H Plt Count 177 Seg Neutrophils % 43.1 Lymphocytes % 44.2 Monocytes % 9.0 Eosinophils % 3.2 Basophils % 0.5 Absolute Neutrophils 2.9 Absolute Lymphocytes 3.0 Absolute Monocytes 0.6 Absolute Eosinophils 0.2 Absolute Basophils 0.0 Sodium 138.7 Potassium 4.0 Chloride 108 H Carbon Dioxide 27 Anion Gap 4 L BUN 5 L Creatinine 0.55 Est GFR ( Amer) > 60 Est GFR (Non-Af Amer) > 60 Glucose 81 Calcium 8.1 L Magnesium 2.0 11/22/16 11/22/16 11/22/16 08:55 08:55 14:43 Creatine Kinase 205 H 173 H CK-MB (CK-2) 3.43 Troponin I < 0.012 11/22/16 11/22/16 11/22/16 14:43 19:50 19:50 Creatine Kinase 168 H CK-MB (CK-2) 2.69 2.36 Troponin I < 0.012 < 0.012 Impressions: Abdomen/Pelvis CT 11/22/16 00:00 IMPRESSION: 1. NO SIGNIFICANT OR ACUTE PROCESS IN THE ABDOMEN OR PELVIS. 2. GROUND-GLASS OPACITIES IN THE LUNG BASES. NONSPECIFIC BUT POSSIBLE ETIOLOGIES INCLUDE PNEUMONIA, PNEUMONITIS, EDEMA, OR HEMORRHAGE. Chest X-Ray 11/22/16 00:00 IMPRESSION: HAZY LOWER LOBE DENSITIES WHICH CORRESPOND WITH FINDINGS ON CT. POSSIBLE EARLY INFILTRATES. Assessment & Plan - Diagnosis (1) Hypokalemia Is this a current diagnosis for this admission?: Yes Plan: Currently all resolved most likely related to the HCTZ (2) Flank pain Is this a current diagnosis for this admission?: Yes Plan: Most likely a chronic back pain (3) Abnormal electrocardiogram Is this a current diagnosis for this admission?: Yes Plan: Will DC the trazodone on discharge and patient's echocardiogram and cardiology evaluations done was all stable possible due to underlying hypokalemia which currently all resolved (4) Neuropathy Is this a current diagnosis for this admission?: Yes Plan: Continues to gabapentin (5) Depression Qualifiers: Depression Type: major depressive disorder Is this a current diagnosis for this admission?: Yes Plan: Continues to current medication (6) Smoker Is this a current diagnosis for this admission?: Yes Plan: Discussed with the patient about the smoking cessation (7) Hypertension Qualifiers: Hypertension type: essential hypertension Qualified Code(s): I10 - Essential (primary) hypertension Is this a current diagnosis for this admission?: Yes Plan: Currently stable (8) Leukocytosis Qualifiers: Leukocytosis type: unspecified Qualified Code(s): D72.829 - Elevated white blood cell count, unspecified Is this a current diagnosis for this admission?: Yes Plan: Due to the pneumonia (9) Left arm cellulitis Is this a current diagnosis for this admission?: Yes Plan: Patient was complaining Pain on the left upper extremities with cellulitis will get the ultrasounds of upper extremity to rule out any DVT (10) Pneumonia Qualifiers: Pneumonia type: due to unspecified organism Is this a current diagnosis for this admission?: Yes Plan: He continues to doxycycline on discharge 100 mg p.o. twice a day - Time Time Spent with patient: 15-24 minutes Medications reviewed and adjusted accordingly: Yes Anticipated discharge: Home Within: within 24 hours - Inpatient Certification Medical Necessity: Need Close Monitoring Due to Risk of Patient Decompensation, Need for IV Antibiotics Post Hospital Care: D/C Telehealth Nurse Documentation - Plan Summary Plan Summary: Plan to patient is ambulating in the hallway today DC the IV fluid and DC the IV antibiotic and repeat the blood work in the morning If the patient's blood work is all stable patients can discharged with the doxycycline 100 mg twice a day for 7 days And DC the trazodone Follow in outpatient in 1 week for further evaluate And also DC the HCTZ
[2016-11-23] MEDS: LEVOFLOXACIN 500 MG/D5W RTU 500 MG/100 ML RTUPB IV SCH (09:18)
[2016-11-23] MEDS: DOXYCYCLINE HYCLATE 100 MG TABLET PO SCH ×2 (09:20→21:30)
[2016-11-23] MEDS: BACITRACIN ZINC OINTMENT 15 GM TP SCH ×2 (09:21→16:00)
[2016-11-23] MEDS: ENOXAPARIN SODIUM INJ 40 MG/0.4 ML DISP.SYRIN SUBCUT SCH (09:21)
--- NOTE | 2016-11-23 09:46 | EKG REPORT ---
SEVERITY:- ABNORMAL ECG - SINUS RHYTHM LOW VOLTAGE THROUGHOUT NONSPECIFIC T ABNORMALITIES, ANTERIOR LEADS : Confirmed by: Magaly Pierce 23-Nov-2016 09:45:26
[2016-11-23] MEDS ORDERED: FUROSEMIDE 20 MG TABLET PO ONE (11:15)
[2016-11-23] MEDS ORDERED: SPIRONOLACTONE 25 MG TABLET PO ONE (11:15)
--- NOTE | 2016-11-23 13:21 | PDOC PROGRESS REPORT ---
Subjective Progress Note for:: 11/23/16 Subjective:: Patient seems to be doing better with gradual improvement. Pt is denying any chest arm or neck discomfort. Patient however has has noted significant increased pedal edema and also some facial swelling. Patient also has been noted to have intermittent low blood pressure reading. Patient denying any PND , orthopnea. Patient denied any sustained palpitations, dizziness, syncope, near syncope. Patient denying any fever chills. Patient denying any other significant discomfort. Patient is maintaining sinus rhythm. Review of systems: Rest review of systems negative. Medications: Medications have been reviewed. Physical Exam Vital Signs: Temp Pulse Resp BP Pulse Ox 99.1 F 71 18 102/66 95 11/23/16 10:49 11/23/16 10:49 11/23/16 10:49 11/23/16 10:49 11/23/16 10:49 Intake & Output 11/22/16 11/23/16 11/24/16 06:59 06:59 06:59 Intake Total 3944 780 Output Total 1 Balance 3943 780 Weight 82.7 kg Exam: GENERAL: well-nourished and in no acute distress. Alert and oriented x3 HEAD: Atraumatic, normocephalic. EYES: Pupils equal round and reactive to light, extraocular movements intact, sclera anicteric, conjunctiva are normal. ENT: TMs normal, nares patent, oropharynx clear without exudates. Moist mucous membranes. No oral ulcerations or bleeding gums noted NECK: supple without lymphadenopathy. Trachea is central. No cervical or axillary lymphadenopathy noted. Carotids are 2+, JVD WNL LUNGS: Respiration seems nonlabored, no significant accessory muscle action noted. Breath sounds clear to auscultation bilaterally and equal noted. No wheezes rales or rhonchi noted. No significant dullness noted on percussion. CHEST: Palpation of the chest wall shows no significant chest wall tenderness. No other significant abnormalities noted. HEART: [place] [employer], No PSH, 1/6 DINAH aortic area, 1/6 felder systolic murmur mitral area, no rubs, no gallops. ABDOMEN: Soft, no significant tenderness appreciated, normoactive bowel sounds. No guarding, no rebound. No rigidity noted . No masses appreciated. EXTREMITIES: Pedal pulses are 1-2+, no calf tenderness noted. No clubbing or cyanosis. 1-2 + pedal edema noted, some facial and upper extremity edema also noted. NEUROLOGICAL: Focused neurological exam showed no significant neurologic deficit. Normal speech, no focal weakness appreciated. PSYCH: Normal mood, normal affect. Judgment and insight within normal limits. SKIN: No significant ecchymosis, mild rash noted over the face due to itching MUSCULOSKELETAL EXAM: No significant joint swelling noted. Results Laboratory Results: 11/23/16 04:38 11/23/16 04:38 11/22/16 11/22/16 11/23/16 14:43 19:50 04:38 WBC 6.8 RBC 3.52 L Hgb 10.1 L D Hct 29.9 L MCV 85 MCH 28.6 MCHC 33.7 RDW 15.5 H Plt Count 177 Seg Neutrophils % 43.1 Lymphocytes % 44.2 Monocytes % 9.0 Eosinophils % 3.2 Basophils % 0.5 Absolute Neutrophils 2.9 Absolute Lymphocytes 3.0 Absolute Monocytes 0.6 Absolute Eosinophils 0.2 Absolute Basophils 0.0 Sodium 139.8 Potassium 2.9 L* 3.8 Chloride 107 Carbon Dioxide 26 Anion Gap 7 BUN 6 L Creatinine 0.56 Est GFR ( Amer) > 60 Est GFR (Non-Af Amer) > 60 Glucose 114 H Calcium 7.7 L Magnesium 11/23/16 04:38 WBC RBC Hgb Hct MCV MCH MCHC RDW Plt Count Seg Neutrophils % Lymphocytes % Monocytes % Eosinophils % Basophils % Absolute Neutrophils Absolute Lymphocytes Absolute Monocytes Absolute Eosinophils Absolute Basophils Sodium 138.7 Potassium 4.0 Chloride 108 H Carbon Dioxide 27 Anion Gap 4 L BUN 5 L Creatinine 0.55 Est GFR ( Amer) > 60 Est GFR (Non-Af Amer) > 60 Glucose 81 Calcium 8.1 L Magnesium 2.0 11/22/16 11/22/16 11/22/16 08:55 08:55 14:43 Creatine Kinase 205 H 173 H CK-MB (CK-2) 3.43 Troponin I < 0.012 11/22/16 11/22/16 11/22/16 14:43 19:50 19:50 Creatine Kinase 168 H CK-MB (CK-2) 2.69 2.36 Troponin I < 0.012 < 0.012 EKG Comments: Twelve-lead EKG shows improvement in T-wave changes probably related to correction of hyperkalemia. In the morning. Impressions: Abdomen/Pelvis CT 11/22/16 00:00 IMPRESSION: 1. NO SIGNIFICANT OR ACUTE PROCESS IN THE ABDOMEN OR PELVIS. 2. GROUND-GLASS OPACITIES IN THE LUNG BASES. NONSPECIFIC BUT POSSIBLE ETIOLOGIES INCLUDE PNEUMONIA, PNEUMONITIS, EDEMA, OR HEMORRHAGE. Chest X-Ray 11/22/16 00:00 IMPRESSION: HAZY LOWER LOBE DENSITIES WHICH CORRESPOND WITH FINDINGS ON CT. POSSIBLE EARLY INFILTRATES. Assessment & Plan - Diagnosis (1) Abnormal electrocardiogram Is this a current diagnosis for this admission?: Yes (2) Hypokalemia Is this a current diagnosis for this admission?: Yes (3) Pulmonary infiltrate present on computed tomography Is this a current diagnosis for this admission?: Yes (4) Hypotension (arterial) Qualifiers: Hypotension type: unspecified hypotension type Qualified Code(s): I95.9 - Hypotension, unspecified Is this a current diagnosis for this admission?: Yes - Notes Notes: Abnormal electrocardiogram: Most likely related to severe hypokalemia. Cardiac enzymes has been negative. 2D echo shows normal LVEF. EKG this morning shows improvement. Hypokalemia: Could be related to HCTZ and diarrhea. Patient already on aggressive replacement protocol. Have placed patient on Lasix 20 mg p.o. daily and also placed patient on spironolactone.. Pulmonary infiltrates noted on EKG consistent with pneumonia versus edema. 2D echo shows normal LVEF. Will obtain a BNP level. Hypotension: Patient noted to have low blood pressure on automatic blood pressure recording but on manual recording blood pressure is in the 90s. If hypotension is a problem, would recommend starting patient on Midrin 5 mg p.o. twice daily during the day. Consider checking a cortisol level. Patient prefers to follow-up with me as an outpatient for further cardiac management as needed. Will sign off. Please reconsult if needed - Time Time with patient: Greater than 35 minutes Medications reviewed and adjusted accordingly: Yes
[2016-11-23] MEDS ORDERED: MAG HYDROX/AL HYDROX/SIMETH SUSP 30 ML UDCUP PO PRN (15:59)
--- NOTE | 2016-11-23 17:03 | XCELERA REPORT ---
[address] [address] Upper Extremity Venous Evaluation Name: ALLYSON OVERTON Age: 50 yrs Gender: Female : 1965 Patient Status: Inpatient Patient Location: [address] [place] [address] Study Date: 11/23/2016 11:11 AM Procedure: Unilateral duplex scan of the left upper extremity veins was performed, including responses to compression and other maneuvers. Reason For Study: left upper extremity pain Ordering Physician: CONCETTA BLANTON Performed By: Grace Thomas Left Sided Venous Evaluation Normal vessel filling wall to wall, compression and augmentation as well as Colour flow down to the forearm veins. Interpretation Summary No duplex evidence of DVT or obstruction in the left upper extremity. : CONCETTA BLANTON > Paul Donahue
[2016-11-23] MEDS: ACETAMINOPHEN 325 MG TABLET PO PRN (21:30)
[2016-11-24 05:03] LABS: ANION GAP 7 (5-19); BLOOD UREA NITROGEN 6 mg/dL (7-20); CALCIUM 8.6 mg/dL (8.4-10.2); CARBON DIOXIDE 26 mmol/L (22-30); CHLORIDE 107 mmol/L (98-107); CREATININE RESULT 0.57 mg/dL (0.52-1.25); GLUCOSE 79 mg/dL (75-110); POTASSIUM 3.5 mmol/L (3.6-5.0); SODIUM 139.9 mmol/L (137-145)
[2016-11-24 05:05] LABS: ABSOLUTE EOSINOPHILS # (AUTO) 0.2 10^3/uL (0.0-0.6); ABSOLUTE LYMPHOCYTES (AUTO) 3.7 10^3/uL (0.5-4.7); ABSOLUTE MONOCYTES (AUTO) 0.6 10^3/uL (0.1-1.4); ABSOLUTE NEUT (AUTO) 2.5 10^3/uL (1.7-8.2); BASOPHILS % (AUTO) 0.7 % (0-2); EOSINOPHILS % (AUTO) 2.5 % (0-6); HEMATOCRIT 31.1 % (36.0-47.0); HEMOGLOBIN 10.8 g/dL (12.0-15.5); HGB HCT DIFFERENCE 1.3; LYMPHOCYTES % (AUTO) 52.9 % (13-45); MEAN CORPUSCULAR HEMOGLOBIN 28.9 pg (27.0-33.4); MEAN CORPUSCULAR HGB CONC 34.7 g/dL (32.0-36.0); MEAN CORPUSCULAR VOLUME 83 fl (80-97); RED BLOOD COUNT 3.75 10^6/uL (3.72-5.28); RED CELL DISTRIBUTION WIDTH 15.3 % (11.5-14.0); SEGMENTED NEUTROPHILS % (AUTO) 35.9 % (42-78)
[2016-11-24] MEDS: LANSOPRAZOLE 15 MG TAB.RAP.DR PO SCH ×2 (05:44→17:46)
--- NOTE | 2016-11-24 09:48 | EKG REPORT ---
SEVERITY:- BORDERLINE ECG - SINUS RHYTHM LOW VOLTAGE THROUGHOUT BORDERLINE T ABNORMALITIES, ANTERIOR LEADS : Confirmed by: Magaly Pierce 24-Nov-2016 09:47:51
[2016-11-24] MEDS: ENOXAPARIN SODIUM INJ 40 MG/0.4 ML DISP.SYRIN SUBCUT SCH (10:56)
[2016-11-24] MEDS: FUROSEMIDE 20 MG TABLET PO SCH (10:56)
[2016-11-24] MEDS: SPIRONOLACTONE 25 MG TABLET PO SCH (10:56)
[2016-11-24] MEDS: DOXYCYCLINE HYCLATE 100 MG TABLET PO SCH ×2 (10:57→21:19)
[2016-11-24] MEDS: LEVOFLOXACIN 500 MG/D5W RTU 500 MG/100 ML RTUPB IV SCH (10:57)
[2016-11-24] MEDS: BACITRACIN ZINC OINTMENT 15 GM TP SCH ×2 (10:57→17:47)
--- NOTE | 2016-11-24 15:03 | PDOC PROGRESS REPORT ---
Subjective Progress Note for:: 11/24/16 Subjective:: She was seen by the bedside, she complained of right shoulder pain, she was admitted partly due to hypokalemia Physical Exam Vital Signs: Temp Pulse Resp BP Pulse Ox 98.7 F 63 18 118/79 97 11/24/16 12:20 11/24/16 12:20 11/24/16 12:20 11/24/16 12:20 11/24/16 12:20 Intake & Output 11/23/16 11/24/16 11/25/16 06:59 06:59 06:59 Intake Total 3944 3286 758 Output Total 1 Balance 3943 3286 758 Weight 82.7 kg 83.8 kg General appearance: PRESENT: no acute distress Eye exam: PRESENT: PERRLA Respiratory exam: PRESENT: clear to auscultation ky Cardiovascular exam: PRESENT: +S1, +S2 GI/Abdominal exam: PRESENT: soft Neurological exam: PRESENT: alert Results Laboratory Results: 11/24/16 04:30 11/24/16 04:30 11/23/16 11/24/16 11/24/16 04:38 04:30 04:30 WBC 7.0 RBC 3.75 Hgb 10.8 L Hct 31.1 L MCV 83 MCH 28.9 MCHC 34.7 RDW 15.3 H Plt Count 185 Seg Neutrophils % 35.9 L Lymphocytes % 52.9 H Monocytes % 8.0 Eosinophils % 2.5 Basophils % 0.7 Absolute Neutrophils 2.5 Absolute Lymphocytes 3.7 Absolute Monocytes 0.6 Absolute Eosinophils 0.2 Absolute Basophils 0.0 Sodium 139.9 Potassium 3.5 L Chloride 107 Carbon Dioxide 26 Anion Gap 7 BUN 6 L Creatinine 0.57 Est GFR ( Amer) > 60 Est GFR (Non-Af Amer) > 60 Glucose 79 Calcium 8.6 TSH 0.75 11/22/16 11/22/16 11/22/16 08:55 08:55 14:43 Creatine Kinase 205 H 173 H CK-MB (CK-2) 3.43 Troponin I < 0.012 NT-Pro-B Natriuret Pep 11/22/16 11/22/16 11/22/16 14:43 19:50 19:50 Creatine Kinase 168 H CK-MB (CK-2) 2.69 2.36 Troponin I < 0.012 < 0.012 NT-Pro-B Natriuret Pep 11/23/16 04:38 Creatine Kinase CK-MB (CK-2) Troponin I NT-Pro-B Natriuret Pep 387 Impressions: Abdomen/Pelvis CT 11/22/16 00:00 IMPRESSION: 1. NO SIGNIFICANT OR ACUTE PROCESS IN THE ABDOMEN OR PELVIS. 2. GROUND-GLASS OPACITIES IN THE LUNG BASES. NONSPECIFIC BUT POSSIBLE ETIOLOGIES INCLUDE PNEUMONIA, PNEUMONITIS, EDEMA, OR HEMORRHAGE. Chest X-Ray 11/22/16 00:00 IMPRESSION: HAZY LOWER LOBE DENSITIES WHICH CORRESPOND WITH FINDINGS ON CT. POSSIBLE EARLY INFILTRATES. Assessment & Plan - Diagnosis (1) Hypokalemia Is this a current diagnosis for this admission?: Yes (2) Pain in right shoulder Qualifiers: Chronicity: acute Qualified Code(s): M25.511 - Pain in right shoulder Is this a current diagnosis for this admission?: Yes Plan: Give Toradol 15 mg IV 1 dose (3) Abnormal electrocardiogram Is this a current diagnosis for this admission?: Yes
[2016-11-24] MEDS ORDERED: KETOROLAC TROMETHAMINE INJ/PF 30 MG/1 ML SDV INJ ONE (17:45)
[2016-11-24] MEDS: ACETAMINOPHEN 325 MG TABLET PO PRN (21:19)
[2016-11-25] MEDS: ACETAMINOPHEN 325 MG TABLET PO PRN (04:43)
[2016-11-25] MEDS: LANSOPRAZOLE 15 MG TAB.RAP.DR PO SCH ×2 (05:11→17:25)
[2016-11-25 05:25] LABS: ABSOLUTE EOSINOPHILS # (AUTO) 0.3 10^3/uL (0.0-0.6); ABSOLUTE LYMPHOCYTES (AUTO) 3.8 10^3/uL (0.5-4.7); ABSOLUTE MONOCYTES (AUTO) 0.5 10^3/uL (0.1-1.4); ABSOLUTE NEUT (AUTO) 2.8 10^3/uL (1.7-8.2); BASOPHILS % (AUTO) 0.3 % (0-2); EOSINOPHILS % (AUTO) 3.7 % (0-6); HEMATOCRIT 32.8 % (36.0-47.0); HEMOGLOBIN 11.2 g/dL (12.0-15.5); HGB HCT DIFFERENCE 0.8; LYMPHOCYTES % (AUTO) 51.5 % (13-45); MEAN CORPUSCULAR HEMOGLOBIN 28.8 pg (27.0-33.4); MEAN CORPUSCULAR HGB CONC 34.2 g/dL (32.0-36.0); MEAN CORPUSCULAR VOLUME 84 fl (80-97); RED BLOOD COUNT 3.89 10^6/uL (3.72-5.28); RED CELL DISTRIBUTION WIDTH 15.6 % (11.5-14.0); SEGMENTED NEUTROPHILS % (AUTO) 37.5 % (42-78); WHITE BLOOD COUNT 7.4 10^3/uL (4.0-10.5)
[2016-11-25 05:44] LABS: ANION GAP 8 (5-19); BLOOD UREA NITROGEN 12 mg/dL (7-20); CALCIUM 8.5 mg/dL (8.4-10.2); CARBON DIOXIDE 29 mmol/L (22-30); CHLORIDE 104 mmol/L (98-107); CREATININE RESULT 0.71 mg/dL (0.52-1.25); GLUCOSE 98 mg/dL (75-110); POTASSIUM 3.5 mmol/L (3.6-5.0); SODIUM 141.4 mmol/L (137-145)
[2016-11-25] MEDS: FUROSEMIDE 20 MG TABLET PO SCH (09:34)
[2016-11-25] MEDS: DOXYCYCLINE HYCLATE 100 MG TABLET PO SCH ×2 (09:34→21:22)
[2016-11-25] MEDS: SPIRONOLACTONE 25 MG TABLET PO SCH (09:34)
[2016-11-25] MEDS: ENOXAPARIN SODIUM INJ 40 MG/0.4 ML DISP.SYRIN SUBCUT SCH (09:35)
[2016-11-25] MEDS: LEVOFLOXACIN 500 MG/D5W RTU 500 MG/100 ML RTUPB IV SCH (09:35)
[2016-11-25] MEDS: BACITRACIN ZINC OINTMENT 15 GM TP SCH ×2 (09:35→17:25)
--- NOTE | 2016-11-25 12:40 | PDOC PROGRESS REPORT ---
Subjective Progress Note for:: 11/25/16 Subjective:: She was seen by the bedside, she complained of right shoulder pain, she was admitted partly due to hypokalemia Physical Exam Vital Signs: Temp Pulse Resp BP Pulse Ox 98.2 F 58 L 18 125/79 97 11/25/16 11:23 11/25/16 11:23 11/25/16 11:23 11/25/16 11:23 11/25/16 11:23 Intake & Output 11/24/16 11/25/16 11/26/16 06:59 06:59 06:59 Intake Total 3286 2251 Balance 3286 2251 Weight 83.8 kg 82.3 kg General appearance: PRESENT: no acute distress Eye exam: PRESENT: PERRLA Respiratory exam: PRESENT: clear to auscultation ky Cardiovascular exam: PRESENT: +S1, +S2 GI/Abdominal exam: PRESENT: soft Neurological exam: PRESENT: alert, CN II-XII grossly intact Results Laboratory Results: 11/25/16 04:56 11/25/16 04:56 11/25/16 11/25/16 04:56 04:56 WBC 7.4 RBC 3.89 Hgb 11.2 L Hct 32.8 L MCV 84 MCH 28.8 MCHC 34.2 RDW 15.6 H Plt Count 222 Seg Neutrophils % 37.5 L Lymphocytes % 51.5 H Monocytes % 7.0 Eosinophils % 3.7 Basophils % 0.3 Absolute Neutrophils 2.8 Absolute Lymphocytes 3.8 Absolute Monocytes 0.5 Absolute Eosinophils 0.3 Absolute Basophils 0.0 Sodium 141.4 Potassium 3.5 L Chloride 104 Carbon Dioxide 29 Anion Gap 8 BUN 12 Creatinine 0.71 Est GFR ( Amer) > 60 Est GFR (Non-Af Amer) > 60 Glucose 98 Calcium 8.5 11/22/16 11/22/16 11/22/16 08:55 08:55 14:43 Creatine Kinase 205 H 173 H CK-MB (CK-2) 3.43 Troponin I < 0.012 NT-Pro-B Natriuret Pep 11/22/16 11/22/16 11/22/16 14:43 19:50 19:50 Creatine Kinase 168 H CK-MB (CK-2) 2.69 2.36 Troponin I < 0.012 < 0.012 NT-Pro-B Natriuret Pep 11/23/16 04:38 Creatine Kinase CK-MB (CK-2) Troponin I NT-Pro-B Natriuret Pep 387 Impressions: Abdomen/Pelvis CT 11/22/16 00:00 IMPRESSION: 1. NO SIGNIFICANT OR ACUTE PROCESS IN THE ABDOMEN OR PELVIS. 2. GROUND-GLASS OPACITIES IN THE LUNG BASES. NONSPECIFIC BUT POSSIBLE ETIOLOGIES INCLUDE PNEUMONIA, PNEUMONITIS, EDEMA, OR HEMORRHAGE. Chest X-Ray 11/22/16 00:00 IMPRESSION: HAZY LOWER LOBE DENSITIES WHICH CORRESPOND WITH FINDINGS ON CT. POSSIBLE EARLY INFILTRATES. Assessment & Plan - Diagnosis (1) Hypokalemia Is this a current diagnosis for this admission?: Yes (2) Pain in right shoulder Qualifiers: Chronicity: acute Qualified Code(s): M25.511 - Pain in right shoulder Is this a current diagnosis for this admission?: Yes (3) Abnormal electrocardiogram Is this a current diagnosis for this admission?: Yes
[2016-11-25] MEDS ORDERED: CYCLOBENZAPRINE HCL 10 MG TABLET PO PRN (13:07)
[2016-11-25] MEDS ORDERED: INFLUENZA ADLT QUAD (36MOS+) 2017-18 VAC 0.5 ML SYR IM PRN (16:07)
[2016-11-25] MEDS: CYCLOBENZAPRINE HCL 10 MG TABLET PO PRN (21:22)
[2016-11-26] MEDS: LANSOPRAZOLE 15 MG TAB.RAP.DR PO SCH (05:07)
[2016-11-26] MEDS: CYCLOBENZAPRINE HCL 10 MG TABLET PO PRN (05:07)
[2016-11-26 06:22] LABS: ANION GAP 7 (5-19); BLOOD UREA NITROGEN 13 mg/dL (7-20); CALCIUM 8.5 mg/dL (8.4-10.2); CARBON DIOXIDE 28 mmol/L (22-30); CHLORIDE 106 mmol/L (98-107); CREATININE RESULT 0.68 mg/dL (0.52-1.25); GLUCOSE 115 mg/dL (75-110); POTASSIUM 3.3 mmol/L (3.6-5.0); SODIUM 140.5 mmol/L (137-145)
[2016-11-26] MEDS ORDERED: POTASSIUM CHLORIDE 10 MEQ TABLET.SA PO ONE (06:55)
[2016-11-26 08:04] VITALS: BP 136/87
--- NOTE | 2016-11-26 08:49 | PDOC DISCHARGE SUMMARY ---
General - Admit/Disc Date/PCP Admission Date/Primary Care Provider: 11/22/16 08:18 Discharge Date: 11/26/16 - Discharge Diagnosis (1) Hypokalemia Is this a current diagnosis for this admission?: Yes Summary: Most likely related to the hydrochlorothiazide and the diarrhea and currently all resolving with her daily potassium replacement therapy (2) Flank pain Is this a current diagnosis for this admission?: Yes Summary: Currently all resolved (3) Abnormal electrocardiogram Is this a current diagnosis for this admission?: Yes Summary: Due to the hypokalemia and all cardiac workup is all negativeFollow with the cardiology as outpatient (4) Neuropathy Is this a current diagnosis for this admission?: Yes Summary: Most likely from chronic back pain continues to gabapentin (5) Depression Is this a current diagnosis for this admission?: Yes Summary: Currently stable continues to current medications (6) Smoker Is this a current diagnosis for this admission?: Yes Summary: Discussed with the patient about smoking cessation (7) Hypertension Is this a current diagnosis for this admission?: Yes Summary: Currently all stable (8) Leukocytosis Is this a current diagnosis for this admission?: Yes Summary: Due to the most likely from pneumonia is resolving (9) Left arm cellulitis Is this a current diagnosis for this admission?: Yes Summary: Is also resolving (10) Pneumonia Is this a current diagnosis for this admission?: Yes Summary: Continues to doxycycline as outpatients for 7 days - Additional Information Resuscitation Status: Full Code Discharge Diet: Regular Discharge Activity: Activity As Tolerated Home Medications: Buprenorphine HCl [Subutex 8 mg Sublingual Tablet] 8 mg PO Q12 11/22/16 Dextroamphetamine/Amphetamine [Adderall 20 mg Tablet] 20 mg PO DAILY 11/22/16 Fluoxetine HCl [Prozac] 40 mg PO DAILY 11/22/16 Gabapentin [Neurontin] 600 mg PO Q8H 11/22/16 Trazodone HCl [Desyrel] 150 mg PO QHS 11/22/16 Doxycycline Hyclate [Vibramycin 100 mg Tablet] 100 mg PO Q12 #14 tablet Furosemide [Lasix 20 mg Tablet] 20 mg PO DAILY #30 tablet 11/26/16 Potassium Chloride 20 meq PO DAILY #30 tab.er.prt 11/26/16 History of Present Illness History of Present Illness: ALLYSON OVERTON is a 50-year-old female with a history of kidney infections who presents the ED complaining of right flank pain 2-3 days. Patient states that she also has urinary frequency without any hematuria or dysuria. Patient states that she was here 1 week ago and was given Levaquin to take for 5 days for an upper respiratory infection while having flank pain at that time as well. Patient states that she was feeling better by the end of the antibiotics , but her flank pain returned. Patient still eating and drinking without any difficulties. Pt has associated nausea w/o vomiting intermittently. Patient states that she is having normal bowel movements and also some diarrhea intermittently. Nothing worsens or improves her pain that she is aware of. Pt has noticed general body ache as well. Pt was vomited once yesterday, none today. No nausea now. Pt is taking HCTZ, which she claims she takes for fluid retention.. Patient also complains of a red area to her antecubital left space that is painful and warm to the touch that has been there for the last 1-2 days. Patient states that she noticed an insect bite to that area initially. She has not noticed any purulent discharge, streaking, or abscess formation. + smoker, denies IV drug use. Denies any headache, fever, URI, sore throat, chest pain, palpitations, syncope , cough, shortness of breath, wheeze, dyspnea, abdominal pain, diarrhea, urinary retention, vaginal discharge/odor/bleeding, loss of control of bowel or bladder, numbness/tingling, saddle anesthesia, muscle paralysis/weakness. Patient also complaining some chiropractic bite Patient's initial workup in the ER with the potassium was very low and the patient have elevated white count When I saw the patient's patient still complains of bilateral back pain Patient have a history of the neuropathy in the depressions Still smokThe patient Take the hydrochlorothiazide because of the swelling in the leg and the bodyI am not sure they really patients taking the 1 tablet and may be a more than 1 tablet Hospital Course Hospital Course: This is a 51-year-old female is present in the emergency department complaining of flank pain and patient found to severe hypokalemiaPatient was admitting in the hospital and replaced this potassiums with some abnormal EKG and cardiology was consulted Patient have echocardiogram done and cardiac enzymes all negative within normal EF Patients all other subsequent EKGs stable Patient's other blood work is also normal Patient also found the pneumonia is treated with the IV and p.o. antibiotic and is all resolved Patient of a chronic back pain and patient will chronic neuropathy Patient also put on the Lasix because of the overlying generalized swelling per cardiology and continues to potassium supplements Patient otherwise remained stable in the hospital and desired to go homes Discussed with the patient about the all the test reports and patient's potassium was continues to monitor increase her dietary potassiums with the p.o. potassium supplements Follow the patient in 1 week to repeat the Chem-7 Follow with the cardiology for further evaluation to underlying other cause of the edema Physical Exam Vital Signs: Temp Pulse Resp BP Pulse Ox 99.1 F 58 L 18 136/87 H 96 11/26/16 07:03 11/26/16 07:03 11/26/16 07:03 11/26/16 07:03 11/26/16 07:03 Intake & Output 11/25/16 11/26/16 11/27/16 06:59 06:59 06:59 Intake Total 2251 1027 Balance 2251 1027 Weight 82.3 kg 82.1 kg General appearance: PRESENT: no acute distress, well-developed, well-nourished Head exam: PRESENT: atraumatic, normocephalic Eye exam: PRESENT: conjunctiva pink, EOMI, PERRLA. ABSENT: scleral icterus Ear exam: PRESENT: normal external ear exam Mouth exam: PRESENT: moist, tongue midline Neck exam: PRESENT: full ROM. ABSENT: carotid bruit, JVD, lymphadenopathy, thyromegaly Respiratory exam: PRESENT: clear to auscultation ky Cardiovascular exam: PRESENT: RRR. ABSENT: diastolic murmur, rubs, systolic murmur Pulses: PRESENT: normal dorsalis pedis pul, +2 pedal pulses bilateral Vascular exam: PRESENT: normal capillary refill GI/Abdominal exam: PRESENT: normal bowel sounds, soft. ABSENT: distended, guarding, mass, organolmegaly, rebound, tenderness Rectal exam: PRESENT: deferred Neurological exam: PRESENT: alert, awake, oriented to person, oriented to place , oriented to time, oriented to situation, CN II-XII grossly intact. ABSENT: motor sensory deficit Psychiatric exam: PRESENT: appropriate affect, normal mood. ABSENT: homicidal ideation, suicidal ideation Skin exam: PRESENT: dry, intact, warm. ABSENT: cyanosis, rash Results Laboratory Results: 11/25/16 04:56 11/26/16 05:42 11/26/16 05:42 Sodium 140.5 Potassium 3.3 L Chloride 106 Carbon Dioxide 28 Anion Gap 7 BUN 13 Creatinine 0.68 Est GFR ( Amer) > 60 Est GFR (Non-Af Amer) > 60 Glucose 115 H Calcium 8.5 11/22/16 11/22/16 11/22/16 08:55 08:55 14:43 Creatine Kinase 205 H 173 H CK-MB (CK-2) 3.43 Troponin I < 0.012 NT-Pro-B Natriuret Pep 11/22/16 11/22/16 11/22/16 14:43 19:50 19:50 Creatine Kinase 168 H CK-MB (CK-2) 2.69 2.36 Troponin I < 0.012 < 0.012 NT-Pro-B Natriuret Pep 11/23/16 04:38 Creatine Kinase CK-MB (CK-2) Troponin I NT-Pro-B Natriuret Pep 387 Impressions: Abdomen/Pelvis CT 11/22/16 00:00 IMPRESSION: 1. NO SIGNIFICANT OR ACUTE PROCESS IN THE ABDOMEN OR PELVIS. 2. GROUND-GLASS OPACITIES IN THE LUNG BASES. NONSPECIFIC BUT POSSIBLE ETIOLOGIES INCLUDE PNEUMONIA, PNEUMONITIS, EDEMA, OR HEMORRHAGE. Chest X-Ray 11/22/16 00:00 IMPRESSION: HAZY LOWER LOBE DENSITIES WHICH CORRESPOND WITH FINDINGS ON CT. POSSIBLE EARLY INFILTRATES. Plan Time Spent: Greater than 30 Minutes - Discussed with the patient about the all the test reports start the patient on the p.o. potassium supplement and recheck the Chem-7 in 1 week the persistent potassium problem patients need a further secondary workup
[2016-11-26] MEDS: ENOXAPARIN SODIUM INJ 40 MG/0.4 ML DISP.SYRIN SUBCUT SCH (09:04)
[2016-11-26] MEDS: BACITRACIN ZINC OINTMENT 15 GM TP SCH (09:05)
[2016-11-26] MEDS: DOXYCYCLINE HYCLATE 100 MG TABLET PO SCH (09:05)
[2016-11-26] MEDS: SPIRONOLACTONE 25 MG TABLET PO SCH (09:05)
[2016-11-26] MEDS: FUROSEMIDE 20 MG TABLET PO SCH (09:05)
[2016-11-26] MEDS: LEVOFLOXACIN 500 MG/D5W RTU 500 MG/100 ML RTUPB IV SCH (09:17)
== END 2016-11-26 12:54 | disposition home or self-care (01) | DRG 640 ==
LOC: ER 21:57 → UNDOADMIN 11-22 05:43 → EH 11-22 05:43 → 3S 11-22 07:54 → EH 11-22 07:54 → 3S 11-22 08:18
PROVIDERS: ADMIT Family Medicine; ATTEND Family Medicine
PROC: 3E0234Z Introduction of Serum, Toxoid and Vaccine into Muscle, Percutaneous Approach (ICD-10-PCS; principal; 2016-11-26)
DX: E87.6 Hypokalemia (principal); J18.9 Pneumonia, unspecified organism; L03.114 Cellulitis of left upper limb; T50.2X5A Adverse effect of carbonic-anhydrase inhibitors, benzothiadiazides and other diuretics, initial encounter; I10 Essential (primary) hypertension; I95.9 Hypotension, unspecified; M25.511 Pain in right shoulder; M54.5 Low back pain; R94.31 Abnormal electrocardiogram [ECG] [EKG]; G62.9 Polyneuropathy, unspecified; F32.9 Major depressive disorder, single episode, unspecified; F17.210 Nicotine dependence, cigarettes, uncomplicated; Y92.009 Unspecified place in unspecified non-institutional (private) residence as the place of occurrence of the external cause; Z23 Encounter for immunization
CPT/HCPCS: 36415; 71020; 74176; 80048; 80053; 81001; 82550; 82553; 82803; 83690; 83735; 83880; 84132; 84443; 84484; 85025; 87040; 87086; 87493; 90686; 93005; 93010; 93306; 93971; 96365; 96366; 96368; 96375; 99285; J1650; J1885; J1956; J2270; J2405; J3475; J3480; J3490; J7030

== ENCOUNTER 2017-07-12 12:29 | Emergency (ER) | payer SELFPAY ==
[2017-07-12 12:48] VITALS: BP 135/78
[2017-07-12] MEDS ORDERED: KETOROLAC TROMETHAMINE 60 MG/2 ML SDV IM ONE (14:47)
--- NOTE | 2017-07-12 14:53 | ER Document Report ---
ED Neck/Back Problem - General Chief Complaint: Back Pain Stated Complaint: FALL/BACK PAIN Time Seen by Provider: 07/12/17 14:38 Mode of Arrival: Ambulatory Information source: Patient Notes: 51-year-old female presented to ED for complaint of lower back and pelvic pain. She states she fell backwards landing on her buttocks and tailbone yesterday when she was trying to pull her daughter backwards gently and stepping on the wheelchair when she fell her daughter landed on top of her with a wheelchair. Patient is alert and oriented respirations regular and unlabored. She is able to speak in full sentences she denies any loss of consciousness or hitting her head. She is able to ambulate. TRAVEL OUTSIDE OF THE [place] IN LAST 30 DAYS: No - HPI Patient complains to provider of: Lower back Onset: Yesterday Where: Home, Outdoors Onset: Sudden Timing: Still present Quality of pain: Sharp, Throbbing Severity: Severe Pain Level: 5 Context: Fall/near-fall Recent injury: Yes Associated symptoms: Radiation to leg, Lower back pain - Right buttocks. denies : Incontinence, Like prior neck/back pain, Motor loss, Numbness/tingling, Radiation to arm, Radiation to chest, Sensory loss, Unable to urinate Relieved by: Remaining still Similar symptoms previously: No Recently seen / treated by doctor: No - Related Data Allergies/Adverse Reactions: beeswax [Beeswax] Allergy (Verified 07/12/17 12:34) ceftriaxone [From Rocephin] Allergy (Verified 07/12/17 12:34) erythromycin base [Erythromycin Base] Allergy (Verified 07/12/17 12:34) Penicillins Allergy (Verified 07/12/17 12:34) Past Medical History - General Information source: Patient - Social History Smoking Status: Current Every Day Smoker Cigarette use (# per day): Yes - One half pack per day Chew tobacco use (# tins/day): No Smoking Education Provided: Yes - 4 minutes Frequency of alcohol use: None Drug Abuse: None Lives with: Other - Lives with her disabled daughter Family History: Reviewed & Not Pertinent, Hypertension Patient has suicidal ideation: No Patient has homicidal ideation: No - Past Medical History Cardiac Medical History: Reports: Hx Hypertension Pulmonary Medical History: Reports: None EENT Medical History: Reports: None Neurological Medical History: Reports: Hx Migraine Endocrine Medical History: Reports: None Renal/ Medical History: Reports: None Malignancy Medical History: Reports: Hx Breast Cancer GI Medical History: Reports: None Musculoskeltal Medical History: Reports Hx Arthritis - Degenerative disc disease , Reports Hx Musculoskeletal Deformity, Reports Hx Musculoskeletal Trauma Skin Medical History: Reports None Psychiatric Medical History: Reports: Hx Depression Traumatic Medical History: Reports: None Infectious Medical History: Reports: None Past Surgical History: Reports: Hx Breast Surgery - bilateral, Hx Section - 3, Hx Orthopedic Surgery - Right knee MCL right shoulder rotator cuff - Immunizations Immunizations up to date: Yes Hx Diphtheria, Pertussis, Tetanus Vaccination: Yes Review of Systems - Review of Systems Constitutional: No symptoms reported EENT: No symptoms reported Cardiovascular: No symptoms reported Respiratory: No symptoms reported Gastrointestinal: No symptoms reported Genitourinary: No symptoms reported Female Genitourinary: No symptoms reported Musculoskeletal: Back pain - Right pelvis and coccyx area, Muscle pain Skin: No symptoms reported Hematologic/Lymphatic: No symptoms reported Neurological/Psychological: No symptoms reported -: Yes All other systems reviewed and negative Physical Exam - Vital signs Vitals: Temp Pulse Resp BP Pulse Ox 98.6 F 58 L 16 135/78 H 99 07/12/17 12:47 07/12/17 12:47 07/12/17 12:47 07/12/17 12:47 07/12/17 12:47 Interpretation: Normal - General General appearance: Appears well, Alert - HEENT Head: Normocephalic, Atraumatic Eyes: Normal Pupils: PERRL - Respiratory Respiratory status: No respiratory distress Chest status: Nontender Breath sounds: Normal Chest palpation: Normal - Cardiovascular Rhythm: Regular Heart sounds: Normal auscultation Murmur: No - Abdominal Inspection: Normal Distension: No distension Bowel sounds: Normal Tenderness: Nontender Organomegaly: No organomegaly - Back Back: Normal, Tender - Right pelvic and SI joint pain. No: Deformity/step-off, CVA tenderness, Vertebra tenderness, Scars, Scoliosis, Wounds - Extremities General upper extremity: Normal inspection, Nontender, Normal color, Normal ROM , Normal temperature General lower extremity: Normal inspection, Nontender, Normal color, Normal ROM , Normal temperature, Normal weight bearing. No: Brielle's sign - Neurological Neuro grossly intact: Yes Cognition: Normal Orientation: AAOx4 [place] Coma Scale Eye Opening: Spontaneous Aba Coma Scale Verbal: Oriented [place] Coma Scale Motor: Obeys Commands Inman Coma Scale Total: 15 Speech: Normal Motor strength normal: LUE, RUE, LLE, RLE Sensory: Normal - Psychological Associated symptoms: Normal affect, Normal mood - Skin Skin Temperature: Warm Skin Moisture: Dry Skin Color: Normal Course - Re-evaluation Re-evalutation: 07/12/17 14:55 After performing a Medical Screening Examination, I estimate there is LOW risk for EXPANDING OR RUPTURED ABDOMINAL AORTIC ANEURYSM, CAUDA EQUINA SYNDROME, EPIDURAL MASS LESION, or HERNIATED DISK CAUSING SEVERE SPINAL STENOSIS, thus I consider the discharge disposition reasonable. I have reevaluated this patient multiple times and no significant life threatening changes are noted. The patient and I have discussed the diagnosis and risks, and we agree with discharging home and close follow-up. We also discussed returning to the Emergency Department immediately if new or worsening symptoms occur with the understanding that symptoms and presentations can change. We have discussed the symptoms which are most concerning (e.g., saddle anesthesia, urinary or bowel incontinence or retention, changing or worsening pain) that necessitate immediate return. 07/12/17 16:13 Discussed the results of the x-ray the patient stated that her whole back was hurting and that the Toradol did not do her any good. I a offered the patient some Decadron and muscle relaxers and she stated she was not sure that was going to do her any good either she needed something stronger. I told her I was not able to give her narcotics as she is on Adderall and Buprenophine. Patient became very angry and stated that she did not ask me for narcotic she asked me for something for her pain. I explained to her that I had given her Toradol I was giving her steroids and I could give her muscle relaxers. She became very angry and stated that she would have to go to another hospital to get proper treatment since I had not examined her whole back. I explained to her that I had touched her back from top to bottom and the only place she complained of pain was to the right pelvic area and SI joint she became very angry and stated because she just get her muscle relaxers and she go to another hospital. Patient was given discharge instructions for her back pain her Toradol and Decadron shots in her muscle relaxers. She was also given instructions for back stretching exercises. - Vital Signs Vital signs: Temp Pulse Resp BP Pulse Ox 98.6 F 58 L 16 135/78 H 99 07/12/17 12:47 07/12/17 12:47 07/12/17 12:47 07/12/17 12:47 07/12/17 12:47 - Diagnostic Test Radiology reviewed: Image reviewed, Reports reviewed Discharge - Discharge Clinical Impression: Myalgia Back pain Qualifiers: Back pain location: low back pain Chronicity: acute Back pain laterality: right Sciatica presence: with sciatica Sciatica laterality: sciatica of right side Qualified Code(s): M54.41 - Lumbago with sciatica, right side Fall Qualifiers: Encounter type: initial encounter Qualified Code(s): W19.XXXA - Unspecified fall, initial encounter Condition: Stable Disposition: HOME, SELF-CARE Instructions: Family Physicians / Practices Additional Instructions: Myalagia (Muscle Pain) Myalgia is pain in the muscles. We use the word myalgia to describe muscle pain where there's no history of injury, no known muscle disease, and the muscles are normal to examination. Myalgias can be a symptom of an acute illness , such as influenza, hepatitis, or any viral illness, especially with fever. Sometimes the muscle pain comes before any other symptoms. Myalgia can also be an early symptom of inflammatory muscle disease, such as lupus. If myalgia is accompanied by an acute illness that explains the muscle pain , then no further testing needs to be done. When there's no clear reason for the pain, tests may be done to see if there's an inflammatory or other disease of the muscles. The usual treatment for myalgias is anti-inflammatory medication, such as ibuprofen. Muscle aches may be soothed with a heating pad or hot compress. If muscles remain painful for more than a few days, you'll need testing and followup. Return if a muscle becomes swollen, red, or severely painful. LOW BACK PAIN: Three out of every four people will have an episode of disabling back pain during their lifetime. Most commonly the pain is due to straining of the muscles and ligaments in the low back. Usual treatment includes: (1) Rest on a firm surface. Avoid lying on your stomach. (2) Ice pack the painful area. After a few days, gentle heat may be used intermittently to relax the area, or ice packs can be continued. (3) Medication may be needed -- muscle relaxers and antiinflammatory medicines are commonly used. (4) As the back improves, exercises are prescribed to strengthen the back and abdominal muscles. Your doctor will advise you on the proper care for your back at each stage in your recovery. You may be better in a few days -- or healing may take several weeks. If new symptoms of a "herniated disc" (radiation of pain, numbness, or tingling down the back of the leg or weakness in the leg) occur, you should be re-examined. Further testing may be necessary. MUSCLE RELAXERS: Muscle relaxing medications are usually prescribed for acute muscle spasm or injury to the neck and back. They are often combined with antiinflammatory pain medication for increased relief. You may stop the muscle relaxer when the pain and stiffness have improved. Start the medication again if spasms recur. Muscle relaxers may cause drowsiness, especially with the first dose. Do not operate machinery or drive while under the effects of the medication. Most muscle relaxers last up to 24 hours. Do not combine the medication with alcohol. ICE PACKS: Apply ice packs frequently against the painful area. Many different schedules are recommended, such as "20 minutes on, 20 minutes off" or "one hour ice, two hours rest." If you need to work, you may need to go longer between ice treatments. You should plan to have the area ice packed AT LEAST one fourth of the time. The ice should be applied over the wrap, tape, or splint, or over a layer of cloth -- not directly against the skin. Some ice bags have a built-in cloth and can be put directly on the skin. WARM PACKS: After approximately two days, apply gentle heat (such as a heating pad or hot water bottle) for about 20 to 30 minutes about every two hours -- at least four times daily. Warmth and elevation will help you make a more rapid recovery , and will ease the pain considerably. Do not use HOT heat, and never apply heat for longer than 30 minutes. The continuous heat can invisibly damage skin and muscles -- even when no burn is seen on the surface. Damaged muscles can make you MORE sore. Stretching Exercises for the Back The physician has recommended that you begin stretching exercises for your back. These are often used even while the back is painful. However, you should notify the physician if the activities seem to increase your pain. PELVIC TILT: Lie flat on your back with knees bent. Tighten your stomach and buttock muscles so it flattens your lower back against the floor. Hold 10 seconds. Repeat 10 times, twice daily. KNEE RAISE: Lying on the back with knees bent, raise one knee to your chest, then the other. Hold both knees against the chest 10 seconds, then lower one knee at a time. Repeat 10 times, twice daily. PARTIAL TRUNK RAISE: Lie face down, arms at your sides. Keeping your waist on the floor, use your arms raise your chest up. Support yourself on your elbows for 30 seconds. Repeat twice daily, increasing the time to two minutes as you recover. STEROID MEDICATION: You have been given a medicine of the cortisone/steroid class. This medication is used to control inflammation or allergy. It is usually only given for a short period of time, until the acute process subsides. There are usually no side effects from short-term use of cortisone-like medications. Some persons feel an increased sense of well-being and are not sleepy at bedtime. Long-term use of cortisone medications is best avoided, unless required for a severe condition. If your condition does not remit, or relapses after the course of corticosteroid medication, you should consult your physician. Toradol Injection You have been given an injection of ketorolac tromethamine (Toradol). This is an excellent, safe drug for pain control. It also has potent antiinflammatory action. You should have significant pain relief within about one hour. Toradol is not addicting and is non-sedating. It does not interfere with driving or work. Call or return if you develop itching, hives, shortness of breath, or rash. FOLLOW-UP CARE: If you have been referred to a physician for follow-up care, call the physician s office for an appointment as you were instructed or within the next two days. If you experience worsening or a significant change in your symptoms, notify the physician immediately or return to the Emergency Department at any time for re-evaluation. Prescriptions: Cyclobenzaprine HCl [Flexeril 10 mg Tablet] 10 mg PO TIDP PRN #15 tab PRN Reason: Prednisone [Deltasone 20 mg Tablet] 3 tab PO DAILY 5 Days tablet Forms: Elevated Blood Pressure, Smoking Cessation Education
--- NOTE | 2017-07-12 15:34 | RADIOLOGY REPORT (SQ) ---
EXAM DESCRIPTION: SACRUM AND COCCYX COMPLETED DATE/TIME: 07/12/2017 3:14 pm REASON FOR STUDY: fall landing on buttocks fell yesterday, left hip and buttock pain COMPARISON: AP pelvis same date NUMBER OF VIEWS: Three views. TECHNIQUE: AP, lateral, and tilt views of the sacrum and coccyx. LIMITATIONS: None. FINDINGS: MINERALIZATION: Normal. BONES: No acute fracture or dislocation. No worrisome bone lesions. SOFT TISSUES: No soft tissue swelling. No foreign body. OTHER: No other significant finding. IMPRESSION: NEGATIVE STUDY OF THE SACRUM AND COCCYX. TECHNICAL DOCUMENTATION: JOB ID: [id number] [employer]- All Rights Reserved Reading location - IP/workstation name: [email or web address]
--- NOTE | 2017-07-12 15:35 | RADIOLOGY REPORT (SQ) ---
EXAM DESCRIPTION: PELVIS AP COMPLETED DATE/TIME: 07/12/2017 3:18 pm REASON FOR STUDY: pain right posterior pelvic from fall yesterday COMPARISON: Sacrum and coccyx three views NUMBER OF VIEWS: One view TECHNIQUE: AP Pelvis LIMITATIONS: None. FINDINGS: MINERALIZATION: Normal. HIPS: No acute fracture or dislocation. No worrisome bone lesions. PELVIS AND SACRUM: No acute fracture or dislocation. No worrisome bone lesions. PUBIS AND ISCHIUM: No acute fracture. LOWER LUMBAR SPINE: No significant findings as visualized. SOFT TISSUES: No findings. OTHER: No other significant finding. IMPRESSION: NEGATIVE STUDY OF THE PELVIS. TECHNICAL DOCUMENTATION: JOB ID: [id number] [employer]- All Rights Reserved Reading location - IP/workstation name: [email or web address]
[2017-07-12] MEDS ORDERED: DEXAMETHASONE SOD PHOS INJ 10 MG/1 ML VIAL IM ONE (15:58)
[2017-07-12] MEDS ORDERED: CYCLOBENZAPRINE HCL 10 MG TABLET PO ONE (16:06)
== END 2017-07-12 16:18 | disposition home or self-care (01) ==
LOC: ER 12:29
DX: M54.9 Dorsalgia, unspecified (principal); M54.5 Low back pain; R10.2 Pelvic and perineal pain; W19.XXXA Unspecified fall, initial encounter; Y92.009 Unspecified place in unspecified non-institutional (private) residence as the place of occurrence of the external cause; I10 Essential (primary) hypertension; F17.210 Nicotine dependence, cigarettes, uncomplicated; Z88.3 Allergy status to other anti-infective agents; Z88.0 Allergy status to penicillin; Z85.3 Personal history of malignant neoplasm of breast
CPT/HCPCS: 99406; 99283; 96372; 72220; 72170; J1885; J1100

== ENCOUNTER 2018-02-20 12:55 | Emergency (ER) | payer SELFPAY ==
[2018-02-20] MEDS ORDERED: METHYLPREDNISOLONE INJ 125 MG/2 ML SDV IV ONE (14:26)
[2018-02-20] MEDS ORDERED: IPRATROPIUM/ALBUTEROL 0.5-2.5 MG/3 ML AMPUL NEB ONE ×2 (14:26→16:30)
[2018-02-20] MEDS ORDERED: ASPIRIN 81 MG TABLET, CHEWABLE PO ONE (14:27)
--- NOTE | 2018-02-20 15:00 | RADIOLOGY REPORT (SQ) ---
EXAM DESCRIPTION: CHEST 2 VIEWS COMPLETED DATE/TIME: 02/20/2018 2:50 pm REASON FOR STUDY: cough, cp COMPARISON: 11/22/2016 EXAM PARAMETERS: NUMBER OF VIEWS: two views TECHNIQUE: Digital Frontal and Lateral radiographic views of the chest acquired. RADIATION DOSE: NA LIMITATIONS: none FINDINGS: LUNGS AND PLEURA: No opacities, masses or pneumothorax. No pleural effusion. MEDIASTINUM AND HILAR STRUCTURES: No masses or contour abnormalities. HEART AND VASCULAR STRUCTURES: Heart normal size. No evidence for failure. BONES: Disc degenerative disease of the thoracic spine. HARDWARE: None in the chest. OTHER: No other significant finding. IMPRESSION: No acute abnormality of the lungs. No focal airspace opacity. TECHNICAL DOCUMENTATION: JOB ID: [id number] [employer]- All Rights Reserved Reading location - IP/workstation name: [email or web address]
[2018-02-20 15:10] LABS: ABSOLUTE BASOPHILS # (AUTO) 0.1 10^3/uL (0.0-0.2); ABSOLUTE EOSINOPHILS # (AUTO) 0.6 10^3/uL (0.0-0.6); ABSOLUTE LYMPHOCYTES (AUTO) 2.5 10^3/uL (0.5-4.7); ABSOLUTE MONOCYTES (AUTO) 0.5 10^3/uL (0.1-1.4); ABSOLUTE NEUT (AUTO) 4.4 10^3/uL (1.7-8.2); EOSINOPHILS % (AUTO) 7.6 % (0-6); HEMOGLOBIN 13.1 g/dL (12.0-15.5); LYMPHOCYTES % (AUTO) 30.6 % (13-45); MEAN CORPUSCULAR HGB CONC 33.7 g/dL (32.0-36.0); MEAN CORPUSCULAR VOLUME 86 fl (80-97); PLATELET COUNT 259 10^3/uL (150-450); RED BLOOD COUNT 4.52 10^6/uL (3.72-5.28); RED CELL DISTRIBUTION WIDTH 14.9 % (11.5-14.0); SEGMENTED NEUTROPHILS % (AUTO) 54.8 % (42-78); TOTAL CELLS COUNTED % (AUTO) 100 %; WHITE BLOOD COUNT 8.1 10^3/uL (4.0-10.5)
[2018-02-20] MEDS: ALBUTEROL SULFATE 0.083% NEB 2.5 MG/3 ML AMPUL NEB SCH ×2 (15:15→15:36)
[2018-02-20 15:16] LABS: ALANINE AMINOTRANSFERASE 20 U/L (9-52); ALBUMIN 4.1 g/dL (3.5-5.0); ALKALINE PHOSPHATASE 63 U/L (38-126); ANION GAP 8 (5-19); ASPARTATE AMINO TRANSFERASE 28 U/L (14-36); BILIRUBIN,DIRECT 0.3 mg/dL (0.0-0.4); BILIRUBIN,TOTAL 0.3 mg/dL (0.2-1.3); BLOOD UREA NITROGEN 6 mg/dL (7-20); CALCIUM 9.1 mg/dL (8.4-10.2); CARBON DIOXIDE 31 mmol/L (22-30); CHLORIDE 100 mmol/L (98-107); GLUCOSE 104 mg/dL (75-110); POTASSIUM 3.4 mmol/L (3.6-5.0); SODIUM 138.9 mmol/L (137-145); TOTAL PROTEIN 6.9 g/dL (6.3-8.2)
[2018-02-20] MEDS ORDERED: KETOROLAC TROMETHAMINE INJ/PF 30 MG/1 ML SDV IV ONE (16:30)
[2018-02-20] MEDS ORDERED: GUAIFENESIN 600 MG TABLET.SA PO ONE (16:30)
--- NOTE | 2018-02-20 16:34 | ER Document Report ---
ED General - General Chief Complaint: Chest Congestion Stated Complaint: FEVER Time Seen by Provider: 02/20/18 14:26 Mode of Arrival: Ambulatory Information source: Patient, [facility] Records Notes: 52-year-old female with hypertension, degenerative disc disease, chronic back pain, migraine headaches presents with complaint of cough that started 3 weeks prior to arrival. Patient states cough has been persistent, nonproductive and associated with nasal congestion, sore throat and body aches. Patient reports subjective fevers mostly at night. She denies any nausea, vomiting, abdominal pain. Patient states that she experienced chest pressure this morning upon awakening which she describes as substernal, intermittent and not exacerbated with breathing or movement. Patient does have a significant tobacco history. She also admits to previous history of prescription drug abuse. She is cu rrently on bupropion. Denies any recent hospitalizations. Denies sick contacts. TRAVEL OUTSIDE OF THE [place] IN LAST 30 DAYS: No - HPI Onset: Other Onset/Duration: Persistent Quality of pain: Burning, Pressure Severity: Moderate Associated symptoms: Body/muscle aches, Chest pain, Nonproductive cough, Fever, Sore throat. denies: Diarrhea, Nausea, Vomiting, Shortness of breath Exacerbated by: Coughing Relieved by: Denies Similar symptoms previously: Yes Recently seen / treated by doctor: No - Related Data Allergies/Adverse Reactions: beeswax [Beeswax] Allergy (Verified 07/12/17 12:34) ceftriaxone [From Rocephin] Allergy (Verified 07/12/17 12:34) erythromycin base [Erythromycin Base] Allergy (Verified 07/12/17 12:34) naloxone Allergy (Verified 02/20/18 13:02) Penicillins Allergy (Verified 07/12/17 12:34) Past Medical History - General Information source: Patient, [facility] Records - Social History Smoking Status: Current Every Day Smoker Cigarette use (# per day): Yes - 10 Smoking Education Provided: Yes - Smoking cessation counseling was provided for 4 minutes at the bedside Frequency of alcohol use: None Drug Abuse: None Lives with: Family Family History: Reviewed & Not Pertinent, Hypertension Patient has suicidal ideation: No Patient has homicidal ideation: No - Past Medical History Cardiac Medical History: Reports: Hx Hypertension Neurological Medical History: Reports: Hx Migraine Renal/ Medical History: Denies: Hx Peritoneal Dialysis Malignancy Medical History: Reports: Hx Breast Cancer Musculoskeletal Medical History: Reports Hx Arthritis - Degenerative disc disease, Reports Hx Musculoskeletal Deformity, Reports Hx Musculoskeletal Trauma Psychiatric Medical History: Reports: Hx Depression Past Surgical History: Reports: Hx Breast Surgery - bilateral, Hx Section - 3, Hx Orthopedic Surgery - Right knee MCL right shoulder rotator cuff - Immunizations Immunizations up to date: Yes Hx Diphtheria, Pertussis, Tetanus Vaccination: Yes Review of Systems - Review of Systems Notes: REVIEW OF SYSTEMS: CONSTITUTIONAL : Denies fever, chills, or sweats. Denies recent illness. Denies weight loss, recent hospitalizations. EENT: Denies visual changes, eye pain. Denies sore throat, oral lesions, difficulty swallowing. CARDIOVASCULAR: Denies lower extremity edema. RESPIRATORY: + Cough, shortness of breath, wheezing GASTROINTESTINAL: Denies abdominal pain or distention. Denies nausea, vomiting, or diarrhea. Denies blood in vomitus, stools, or per rectum. Denies black, tarry stools. Denies constipation. GENITOURINARY: Denies difficulty urinating, painful urination, frequency, blood in urine, or vaginal discharge. MUSCULOSKELETAL: Denies back or neck pain or stiffness. Denies joint pain or swelling. SKIN: Denies rash, lesions or sores. HEMATOLOGIC : Denies easy bruising or bleeding. LYMPHATIC: Denies swollen glands. NEUROLOGICAL: Denies confusion or altered mental status. Denies loss of consciousness. Denies dizziness or lightheadedness. Denies headache. Denies weakness or paralysis. Denies problems difficulty with ambulation, slurred speech. Denies sensory loss, numbness, or tingling. Denies seizures. PSYCHIATRIC: Denies anxiety or stress. Denies depression, suicidal ideation, or homicidal ideation. Denies visual or auditory hallucinations. Physical Exam - Vital signs Vitals: Temp Pulse Resp BP Pulse Ox 98.9 F 71 18 111/64 100 02/20/18 13:17 02/20/18 13:17 02/20/18 13:17 02/20/18 13:17 02/20/18 13:17 - Notes Notes: PHYSICAL EXAMINATION: GENERAL: Well-appearing, well-nourished and in no acute distress. HEAD: Atraumatic, normocephalic. EYES: Pupils equal round and reactive to light, extraocular movements intact, conjunctiva are normal. ENT: Nares patent, oropharynx clear without exudates. Moist mucous membranes. NECK: Normal range of motion, supple without lymphadenopathy LUNGS: Mild expiratory wheezing. No accessory muscle use. No tachypnea, hypoxia. HEART: Regular rate and rhythm without murmurs ABDOMEN: Soft, nontender, nondistended abdomen. No guarding, no rebound. No masses appreciated. Female : deferred Musculoskeletal: Normal range of motion, no pitting or edema. No cyanosis. NEUROLOGICAL: Cranial nerves grossly intact. Normal speech, normal gait. Normal sensory, motor exams PSYCH: Normal mood, normal affect. SKIN: Warm, Dry, normal turgor, no rashes or lesions noted. Course - Re-evaluation Re-evalutation: Laboratory 02/20/18 02/20/18 02/20/18 14:36 14:36 14:36 WBC 8.1 RBC 4.52 Hgb 13.1 Hct 39.0 MCV 86 MCH 29.0 MCHC 33.7 RDW 14.9 H Plt Count 259 Seg Neutrophils % 54.8 Lymphocytes % 30.6 Monocytes % 6.0 Eosinophils % 7.6 H Basophils % 1.0 Absolute Neutrophils 4.4 Absolute Lymphocytes 2.5 Absolute Monocytes 0.5 Absolute Eosinophils 0.6 Absolute Basophils 0.1 Sodium 138.9 Potassium 3.4 L Chloride 100 Carbon Dioxide 31 H Anion Gap 8 BUN 6 L Creatinine 0.54 Est GFR ( Amer) > 60 Est GFR (Non-Af Amer) > 60 Glucose 104 Calcium 9.1 Total Bilirubin 0.3 Direct Bilirubin 0.3 Neonat Total Bilirubin Not Reportable Neonat Direct Bilirubin Not Reportable Neonat Indirect Bili Not Reportable AST 28 ALT 20 Alkaline Phosphatase 63 Troponin I < 0.012 Total Protein 6.9 Albumin 4.1 02/20/18 16:56 WBC RBC Hgb Hct MCV MCH MCHC RDW Plt Count Seg Neutrophils % Lymphocytes % Monocytes % Eosinophils % Basophils % Absolute Neutrophils Absolute Lymphocytes Absolute Monocytes Absolute Eosinophils Absolute Basophils Sodium Potassium Chloride Carbon Dioxide Anion Gap BUN Creatinine Est GFR ( Amer) Est GFR (Non-Af Amer) Glucose Calcium Total Bilirubin Direct Bilirubin Neonat Total Bilirubin Neonat Direct Bilirubin Neonat Indirect Bili AST ALT Alkaline Phosphatase Troponin I < 0.012 Total Protein Albumin Chest X-Ray 02/20/18 14:26 IMPRESSION: No acute abnormality of the lungs. No focal airspace opacity. Presentation of chest pain in an otherwise well appearing patient who has had a productive constant cough for approximately 3 weeks. Low clinical suspicion for ACS given clinical history, exam, EKG without ST elevations or depressions, and negative initial troponin and delta troponin. HEART score less than or equal to 3. PE also seems unlikely given clinical history, absence of tachycardia or dyspnea. Patient is PERC criteria negative. CXR without evidence of pneumothorax or pneumonia. No widened mediastinum. Aortic dissection also seems unlikely given history, symmetric pulses, CXR, and vitals. Presentation is most consistent with a viral upper respiratory infection. Patient is overall well appearance, vitals within normal limits, well-hydrated. Patient denies any headache, neck pain, and has no evidence of meningismus on examination. Lungs with mild expiratory wheezing.. No evidence of respiratory distress. Based on clinical exam and history, I do not suspect an acute pneumonia, meningitis, strep pharyngitis, or an acute encephalitis. Patient, signs of meningeal reports improvement of her cough, shortness of breath. Will discharge patient with return precautions and followup recommendations. They are in agreement this plan have verbalized understanding return precautions. HEART Score: History-0 ECG-0 Age-0 Risk Factors-2 Troponin-0 Total: 2 Chest pain in a patient without evidence of cardiac or other serious etiology on workup today. I discussed with patient that, based on their age, risk factors and emergency department testing today, the likelihood that their symptoms are related to a heart attack is very low (estimated risk of heart attack or over the next 30 days of less than 1%). The patient demonstrates decision making capacity and has verbalized an understanding of these risks to me. Based on this, the patient has chosen to follow-up as an outpatient. Usual chest pain return precautions reviewed. The patient states understanding and agreement with this plan. 02/21/18 02:19 HEART Score: History-0 ECG-0 Age-1 Risk Factors-1 Troponin Total: 2 If HEART score is = 3 AND both troponin measurements are normal, the 30 day risk of a major adverse cardiac event (all-cause mortality, myocardial infarction or need for coronary revascularization) is < 1% (Sensitivity 100%, NPV 100%). Chest pain in a patient without evidence of cardiac or other serious etiology on workup today. I discussed with patient that, based on their age, risk factors and emergency department testing today, the likelihood that their symptoms are related to a heart attack is very low (estimated risk of heart attack or over the next 30 days of less than 1%). The patient demonstrates decision making capacity and has verbalized an understanding of these risks to me. Based on this, the patient has chosen to follow-up as an outpatient. Usual chest pain return precautions reviewed. The patient states understanding and agreement with this plan. - Vital Signs Vital signs: Temp Pulse Resp BP Pulse Ox 98.5 F 103 H 18 102/64 98 02/20/18 19:21 02/20/18 19:21 02/20/18 19:21 02/20/18 19:21 02/20/18 19:21 - Laboratory Result Diagrams: 02/20/18 14:36 02/20/18 14:36 Laboratory results interpreted by me: 02/20/18 02/20/18 14:36 14:36 RDW 14.9 H Eosinophils % 7.6 H Potassium 3.4 L Carbon Dioxide 31 H BUN 6 L - Diagnostic Test Radiology reviewed: Image reviewed, Reports reviewed - EKG Interpretation by Me EKG shows normal: Sinus rhythm Rate: Normal Rhythm: NSR When compared to previous EKG there are: No significant change Discharge - Discharge Clinical Impression: Bronchitis, Smoker, Hypokalemia URI (upper respiratory infection) Qualifiers: URI type: unspecified URI Qualified Code(s): J06.9 - Acute upper respiratory infection, unspecified Asthma exacerbation Qualifiers: Asthma severity: mild Asthma persistence: persistent Qualified Code(s): J45.31 - Mild persistent asthma with (acute) exacerbation Chest pain Qualifiers: Chest pain type: unspecified Qualified Code(s): R07.9 - Chest pain, unspecified Condition: Good Disposition: HOME, SELF-CARE Instructions: Upper Respiratory Illness ([facility]), Viral Syndrome ([facility]) Additional Instructions: You were seen for symptoms most consistent with bronchitis. This can take up to 12 weeks to fully resolve. This is generally due to a viral infection. Please follow-up with your primary doctor in the next 2-3 days. Return if you develop w orsening cough, vomiting, fever >100.4, pass out, begin coughing blood, or have any other symptoms that are concerning to you. Please use the medications prescribed today as directed. You were seen today for chest pain. The exact cause of your pain is unclear. However, based on your cardiac enzyme testing, chest x-ray, and EKG it does not appear that it is from an immediately life-threatening cause at this time. Although your testing here is normal is critical that you follow-up with your [facility] care physician for continued evaluation of this chest pain and possible stress testing. I recommended you see your physician within the next 24-48 hours to be evaluated for consideration of a stress test. Please return to emergency department immediately if you have worsening of your chest pain, shortness of breath, vomiting, become unable to exert yourself due to pain or difficulty breathing, you pass out, or have any pain that radiates into your arms, jaw, or back. Please also return if you have any additional symptoms that are concerning to you. Prescriptions: Benzonatate [Tessalon Perle 100 mg Capsule] 100 mg PO Q8HP PRN #20 cap PRN Reason: Doxycycline Hyclate 100 mg PO BID #14 capsule Prednisone [Deltasone 20 mg Tablet] 40 mg PO DAILY 5 Days #10 tablet Forms: Smoking Cessation Education, Return to Work
[2018-02-20] MEDS ORDERED: DOXYCYCLINE HYCLATE 100 MG TABLET PO ONE (17:29)
[2018-02-20] MEDS ORDERED: ALBUTEROL SULFATE HFA (90 MCG/PUFF) 8 GM MDI (1 MDI/ER DISP) IH PRN (19:03)
[2018-02-20 19:26] VITALS: BP 102/64
--- NOTE | 2018-02-21 14:58 | EKG REPORT ---
SEVERITY:- ABNORMAL ECG - SINUS RHYTHM NONSPECIFIC T ABNORMALITIES, ANTERIOR LEADS : Confirmed by: Magaly Pierce 21-Feb-2018 14:57:19
== END 2018-02-20 19:30 | disposition home or self-care (01) ==
LOC: ER 12:55
DX: J45.31 Mild persistent asthma with (acute) exacerbation (principal); J06.9 Acute upper respiratory infection, unspecified; E87.6 Hypokalemia; I10 Essential (primary) hypertension; R05 Cough; R07.89 Other chest pain; R09.81 Nasal congestion; J02.9 Acute pharyngitis, unspecified; F17.210 Nicotine dependence, cigarettes, uncomplicated; F32.9 Major depressive disorder, single episode, unspecified; Z79.899 Other long term (current) drug therapy; Z88.1 Allergy status to other antibiotic agents; Z88.0 Allergy status to penicillin; Z88.8 Allergy status to other drugs, medicaments and biological substances
CPT/HCPCS: 93005; 99406; 94640 ×2; 99284; 96374; 96375; 36415; 87040; 85025; 80053; 84484; 71046; 93010; J2930; J1885; J3490; J7620

== ENCOUNTER 2018-04-16 17:41 | Emergency (ER) | payer SELFPAY ==
--- NOTE | 2018-04-16 19:18 | ER Document Report ---
ED Respiratory Problem - General Chief Complaint: Productive Cough Stated Complaint: COUGH, WHEEZING Time Seen by Provider: 04/16/18 19:03 Mode of Arrival: Ambulatory Information source: Patient Notes: 52-year-old female presents to ED for complaint of cough congestion and wheezing times 1-1/2 months. She states she has a productive cough that has yellow drainage at night. Patient states she has been using her breathing machine and she still wheezes and coughs at night. She states she gets a fever at night but not during the day. Patient states she has had this cough and congestion since she was seen in the emergency room in the end of January. She states her only doctor she has is the doctor who prescribes her Suboxone for her drug addiction. Patient states she does still smoke but she is down to about 4 cigarettes a day. Patient is alert oriented respirations regular and unlabored lungs are clear at this time. I have informed patient we will get a chest x-ray and then I will come back and discuss with her the results of the chest x-ray. TRAVEL OUTSIDE OF THE [place] IN LAST 30 DAYS: No - HPI Patient complains to provider of: Cough, Other - States she has been wheezing for month and a half Onset: Other - Month and a half Duration: Continuous Initiating Event: URI Quality of pain: Achy Context: Smoker Cough: Productive Sputum amount: Small Sputum color: Yellow Sputum consistency: Thick At home treatment: Bronchodilators Associated symptoms: Congestion, Cough, Fever - She has fevers at night, PND, Wheezing Worsened by: Supine Similar symptoms previously: Yes Recently seen / treated by doctor: No - Related Data Allergies/Adverse Reactions: beeswax [Beeswax] Allergy (Verified 04/16/18 17:43) ceftriaxone [From Rocephin] Allergy (Verified 04/16/18 17:43) erythromycin base [Erythromycin Base] Allergy (Verified 04/16/18 17:43) naloxone Allergy (Verified 04/16/18 17:43) Penicillins Allergy (Verified 04/16/18 17:43) Past Medical History - General Information source: Patient - Social History Smoking Status: Current Every Day Smoker Cigarette use (# per day): Yes - 4-5 cigarettes a day Chew tobacco use (# tins/day): No Smoking Education Provided: Yes - 4 minutes Frequency of alcohol use: None Drug Abuse: Other - States she has been cleared 2 years on Suboxone Lives with: Family Family History: Reviewed & Not Pertinent, Hypertension Patient has suicidal ideation: No Patient has homicidal ideation: No - Past Medical History Cardiac Medical History: Reports: None Pulmonary Medical History: Reports: Hx Bronchitis, Hx Pneumonia EENT Medical History: Reports: None Neurological Medical History: Reports: Hx Migraine Endocrine Medical History: Reports: None Renal/ Medical History: Reports: None Malignancy Medical History: Reports: Hx Breast Cancer - Bilateral GI Medical History: Reports: None Musculoskeletal Medical History: Reports Hx Arthritis - Degenerative disc disease, Reports Hx Musculoskeletal Deformity, Reports Hx Musculoskeletal Trauma - Right MCL right rotator cuff Skin Medical History: Reports None Psychiatric Medical History: Reports: Other - On Suboxone for drug addiction, 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 Traumatic Medical History: Reports: None Infectious Medical History: Reports: None Past Surgical History: Reports: Hx Breast Surgery - bilateral, Hx Section - 3, Hx Orthopedic Surgery - Right knee MCL right shoulder rotator cuff - Immunizations Immunizations up to date: Yes Hx Diphtheria, Pertussis, Tetanus Vaccination: Yes Review of Systems - Review of Systems Constitutional: No symptoms reported EENT: Sinus discharge Cardiovascular: No symptoms reported Respiratory: Cough, Wheezing Gastrointestinal: No symptoms reported Genitourinary: No symptoms reported Female Genitourinary: No symptoms reported Musculoskeletal: No symptoms reported Skin: No symptoms reported Hematologic/Lymphatic: No symptoms reported Neurological/Psychological: No symptoms reported -: Yes All other systems reviewed and negative Physical Exam - Vital signs Vitals: Temp Pulse Resp BP Pulse Ox 99.9 F 90 16 105/68 99 04/16/18 18:15 04/16/18 18:15 04/16/18 18:15 04/16/18 18:15 04/16/18 18:15 Interpretation: Normal - General General appearance: Appears well, Alert - HEENT Head: Normocephalic, Atraumatic Eyes: Normal Pupils: PERRL Ears: Normal External canal: Normal Tympanic membrane: Normal Sinus: Normal Nasal: Purulent discharge, Swelling Mouth/Lips: Normal Mucous membranes: Normal Pharynx: Post nasal drainage. No: Erythema, Exudate, Tonsillar hypertrophy Neck: Normal - Respiratory Respiratory status: No respiratory distress Chest status: Nontender Breath sounds: Nonproductive cough. No: Productive cough, Rales, Rhonchi, Stridor, Wheezing Chest palpation: Normal - Cardiovascular Rhythm: Regular Heart sounds: Normal auscultation Murmur: No - Abdominal Inspection: Normal Distension: No distension Bowel sounds: Normal Tenderness: Nontender Organomegaly: No organomegaly - Back Back: Normal, Nontender - Extremities General upper extremity: Normal inspection, Nontender, Normal color, Normal ROM, Normal temperature General lower extremity: Normal inspection, Nontender, Normal color, Normal ROM, Normal temperature, Normal weight bearing. No: Brielle's sign - Neurological Neuro grossly intact: Yes Cognition: Normal Orientation: AAOx4 [place] Coma Scale Eye Opening: Spontaneous Aba Coma Scale Verbal: Oriented Aba Coma Scale Motor: Obeys Commands Aba Coma Scale Total: 15 Speech: Normal Motor strength normal: LUE, RUE, LLE, RLE Sensory: Normal - Psychological Associated symptoms: Normal affect, Normal mood - Skin Skin Temperature: Warm Skin Moisture: Dry Skin Color: Normal Course - Re-evaluation Re-evalutation: 04/16/18 20:10 Discussed x-rays with Dr. Vega. Dr. Vega came and examined the patient and determined that she should come into the hospital and be admitted. Patient was ambulated and his stays remained stable with her O2 sats. It was then determined the patient could be discharged home with prescription for Levaquin, prednisone, and albuterol. Patient will be given a dose of Levaquin prednisone and an albuterol inhaler while in the emergency room and discharged home with prescription for the Levaquin 750 x 7 days prednisone 60 mg a day for 5 days and albuterol for her nebulizer machine. Patient is to return to the ED for any increase in symptoms or if she does not improve. Patient also to establish with a primary care doctor for follow-up. Patient verbalized understanding and agreement with this treatment plan. - Vital Signs Vital signs: Temp Pulse Resp BP Pulse Ox 99.1 F 78 20 115/75 100 04/16/18 20:18 04/16/18 20:18 04/16/18 20:18 04/16/18 20:18 04/16/18 20:18 - Diagnostic Test Radiology reviewed: Image reviewed, Reports reviewed Discharge - Discharge Clinical Impression: Pneumonia Qualifiers: Pneumonia type: due to unspecified organism Laterality: bilateral Lung location: unspecified part of lung Qualified Code(s): J18.9 - Pneumonia, un specified organism Condition: Stable Disposition: HOME, SELF-CARE Instructions: Family Physicians / Practices Additional Instructions: PNEUMONIA: Your examination indicates that you have pneumonia. This is an infection of the lung tissue, usually caused by bacteria or a virus. Symptoms include cough, fever, shaking chills, chest pain, shortness of breath, and coughing up bloody sputum. Treatment for bacterial pneumonia includes rest, antibiotics for 10 to 14 days, increasing your clear liquid intake, a cool mist humidifier at your bedside, and fever medication. Often, a repeat chest X-ray is performed in a few weeks--even if you feel better--to ascertain whether the infection has completely resolved and no underlying lung problem is present. You should call the physician if you develop persistent vomiting, high fever that does not respond to fever medication, increasing shortness of breath, confusion, or lethargy. Also, failure to improve within two to three days is an indication for re-examination. BRONCHOSPASM: You have tightness in the bronchial tubes, called bronchospasm. This often occurs with bronchial infections. Allergies, inhaled chemicals, and polluted or cold air can also provoke bronchospasm. It's more likely in patients with asthma in the family. Emergency treatment of bronchospasm may include adrenaline shots or bronchodilator aerosol. You may feel lightheaded and have a rapid pulse for an hour or two. Rest and get plenty of fluids. At home, we'll treat you with a bronchodilator inhaler. Antibiotics and corticosteroids may be required for some patients. Until you recover, avoid chemical fumes, dusts, pollens, and exercising in very cold or dry air. If you smoke, stop now!! If you develop a fever, increased wheezing, chest pain, or severe shortness of breath, you should contact the doctor immediately. Levofloxacain You have been given an antibacterial agent, levofloxacin (Levaquin). This medicine is not related to the penicillins, sulfas, cephalosporins, or tetracyclines. It is often given to patients who are allergic to these drugs. It has been chosen for you either because other drugs are not appropriate, or because of the nature of your problem. Levaquin should not be taken with antacids, as these can decrease its effectiveness. It can be taken without regard to meals. LEVAQUIN SHOULD NOT BE TAKEN BY CHILDREN, NURSING WOMEN, OR WOMEN. Although Levaquin is usually well-tolerated, common side effects can include nausea and diarrhea. Contact your doctor if you experience any unusual symptoms while on this medication, such as joint pain or swelling, shortness of breath, wheezing, faintness, or hives. INHALED BRONCHODILATORS: You have received a treatment of and/or prescription for an inhaled bronchodilator -- a medication which stimulates the airways in the lung to dilate. This improves the flow of air in asthma, bronchitis, and emphysema. These medicines have some similarity to adrenaline, and can cause similar side effects: shakiness, racing heart, and a sense of nervousness. These side effects decrease with time. Contact your doctor if these side effects are severe. Do not over-use the medicine. Too-frequent use of the inhaler may make it ineffective. Call your doctor if the inhaler is not controlling your symptoms at the prescribed doses. STEROID MEDICATION: You have been given an injection of or oral medicine of the cortisone/steroid class. This medication is used to control inflammation or allergy. Tyler t is usually only given for a short period of time, until the acute process subsides. There are usually no side effects from short-term use of cortisone-like medications. Some persons feel an increased sense of well-being and are not sleepy at bedtime. Long-term use of cortisone medications is best avoided, unless required for a severe condition. If your condition does not remit, or relapses after the course of corticosteroid medication, you should consult your physician. USE OF ACETAMINOPHEN (Tylenol): Acetaminophen may be taken for pain relief or fever control. It's much safer than aspirin, offering a wider range of "safe" dosages. It is safe during . Some brand names are Tylenol, Panadol, Datril, Anacin 3, Tempra, and Liquiprin. Acetaminophen can be repeated every four hours. The following are maximum recommended dosages: >89 pounds or adults 650 mg to 900 mg Acetaminophen can be repeated every four hours. Maximum dose not to exceed 4000 mg a day. SMOKING: If you smoke, you should stop smoking. The tar and chemicals in cigarette smoke are harmful. Smoking has been shown to cause: emphysema chronic bronchitis lung cancer mouth and throat cancer stomach and pancreas cancer premature aging defects In addition, smoking increases ear and lung infections in children of smokers. FOLLOW-UP CARE: If you have been referred to a physician for follow-up care, call the physicians office for an appointment as you were instructed or within the next two days. If you experience worsening or a significant change in your symptoms, notify the physician immediately or return to the Emergency Department at any time for re-evaluation. Prescriptions: Albuterol Sulfate [Proventil 0.5% Neb 2.5 mg/0.5 ml Vial.neb] 2.5 mg NEB Q4HP PRN #25 vial.neb PRN Reason: Levofloxacin [Levaquin 750 mg Tablet] 750 mg PO DAILY #7 tab Prednisone [Deltasone 20 mg Tablet] 3 tab PO DAILY 5 Days tablet Forms: Smoking Cessation Education
--- NOTE | 2018-04-16 19:37 | RADIOLOGY REPORT (SQ) ---
EXAM DESCRIPTION: CHEST 2 VIEWS COMPLETED DATE/TIME: 04/16/2018 7:26 pm REASON FOR STUDY: cough congestion COMPARISON: 02/20/2018 EXAM PARAMETERS: NUMBER OF VIEWS: two views TECHNIQUE: Digital Frontal and Lateral radiographic views of the chest acquired. RADIATION DOSE: NA LIMITATIONS: none FINDINGS: LUNGS AND PLEURA: Bilateral parenchymal opacities in both lungs. No effusions. No pneumo thorax. MEDIASTINUM AND HILAR STRUCTURES: No masses or contour abnormalities. HEART AND VASCULAR STRUCTURES: Heart normal size. No evidence for failure. BONES: No acute findings. HARDWARE: None in the chest. OTHER: No other significant finding. IMPRESSION: Bilateral bronchopneumonia. TECHNICAL DOCUMENTATION: JOB ID: [id number] [employer]- All Rights Reserved Reading location - IP/workstation name: [email or web address]
[2018-04-16] MEDS ORDERED: ACETAMINOPHEN 325 MG TABLET PO ONE (19:48)
[2018-04-16] MEDS ORDERED: PREDNISONE 20 MG TABLET PO ONE (19:59)
[2018-04-16] MEDS ORDERED: ALBUTEROL SULFATE HFA (90 MCG/PUFF) 8 GM MDI (1 MDI/ER DISP) IH ONE (19:59)
[2018-04-16] MEDS ORDERED: LEVOFLOXACIN 750 MG TABLET PO ONE (19:59)
[2018-04-16 20:23] VITALS: BP 115/75
== END 2018-04-16 20:22 | disposition home or self-care (01) ==
LOC: ER 17:41
DX: J18.9 Pneumonia, unspecified organism (principal); R05 Cough; R06.2 Wheezing; R09.82 Postnasal drip; F11.20 Opioid dependence, uncomplicated; Z79.899 Other long term (current) drug therapy; F17.210 Nicotine dependence, cigarettes, uncomplicated; Z71.6 Tobacco abuse counseling; Z91.030 Bee allergy status; Z88.1 Allergy status to other antibiotic agents; Z88.0 Allergy status to penicillin; Z88.8 Allergy status to other drugs, medicaments and biological substances; Z85.3 Personal history of malignant neoplasm of breast
CPT/HCPCS: 99406; 99283; 71046; J7512; J3490

== ENCOUNTER 2018-04-21 22:06 | Inpatient (IN) | payer SELFPAY ==
[2018-04-22] MEDS ORDERED: IPRATROPIUM/ALBUTEROL 0.5-2.5 MG/3 ML AMPUL NEB ONE (01:24)
[2018-04-22] MEDS ORDERED: ACETAMINOPHEN 325 MG TABLET PO ONE (01:24)
--- NOTE | 2018-04-22 01:25 | ER Document Report ---
ED Medical Screen (RME) - General Chief Complaint: Breathing Difficulty Stated Complaint: TROUBLE BREATHING Time Seen by Provider: 04/22/18 01:23 Notes: 52-year-old female chief complaint of fevers, cough, wheezing, shortness of breath, body aches. Seen about 4 days ago, had a chest x-ray that showed bronchopneumonia bilaterally, placed on Levaquin, states she has been taking Levaquin for 4 days now and still has no change in cough and still is persistently running fevers including today. Former smoker, history of asthma, also on prednisone for the past 4 days. Has not had the influenza vaccine, was not checked for this. TRAVEL OUTSIDE OF THE [place] IN LAST 30 DAYS: No - Related Data Allergies/Adverse Reactions: beeswax [Beeswax] Allergy (Verified 04/16/18 17:43) ceftriaxone [From Rocephin] Allergy (Verified 04/16/18 17:43) erythromycin base [Erythromycin Base] Allergy (Verified 04/16/18 17:43) naloxone Allergy (Verified 04/16/18 17:43) Penicillins Allergy (Verified 04/16/18 17:43) Past Medical History - Social History Chew tobacco use (# tins/day): No Frequency of alcohol use: None Drug Abuse: None - Past Medical History Cardiac Medical History: Reports: Hx Hypertension Pulmonary Medical History: Reports: Hx Bronchitis, Hx Pneumonia Neurological Medical History: Reports: Hx Migraine Renal/ Medical History: Denies: Hx Peritoneal Dialysis Malignancy Medical History: Reports: Hx Breast Cancer - Bilateral Musculoskeltal Medical History: Reports Hx Arthritis - Degenerative disc disease, Reports Hx Musculoskeletal Deformity, Reports Hx Musculoskeletal Trauma - Right MCL right rotator cuff Psychiatric Medical History: Reports: Hx Depression Past Surgical History: Reports: Hx Breast Surgery - bilateral, Hx Section - 3, Hx Orthopedic Surgery - Right knee MCL right shoulder rotator cuff - Immunizations Immunizations up to date: Yes Hx Diphtheria, Pertussis, Tetanus Vaccination: Yes History of Influenza Vaccine for 11/2016 - 04/2017 Season: No Physical Exam - Vital signs Vitals: Temp Pulse Resp BP Pulse Ox 100.6 F H 94 20 103/78 95 04/21/18 23:32 04/21/18 23:32 04/21/18 23:32 04/21/18 23:32 04/21/18 23:32 - Respiratory Respiratory status: No: Respiratory distress, Depressed respirations, Tachypnea Breath sounds: Decreased air movement - Decreased breath sounds but still moving air, there are a few scattered wheezes and rhonchi, occasional congested cough Course - Vital Signs Vital signs: Temp Pulse Resp BP Pulse Ox 100.6 F H 94 20 103/78 95 04/21/18 23:32 04/21/18 23:32 04/21/18 23:32 04/21/18 23:32 04/21/18 23:32
[2018-04-22 02:19] LABS: ABSOLUTE BASOPHILS # (AUTO) 0.1 10^3/uL (0.0-0.2); ABSOLUTE EOSINOPHILS # (AUTO) 0.3 10^3/uL (0.0-0.6); ABSOLUTE LYMPHOCYTES (AUTO) 2.5 10^3/uL (0.5-4.7); ABSOLUTE MONOCYTES (AUTO) 0.8 10^3/uL (0.1-1.4); ABSOLUTE NEUT (AUTO) 12.6 10^3/uL (1.7-8.2); BASOPHILS % (AUTO) 0.4 % (0-2); HEMATOCRIT 36.8 % (36.0-47.0); HEMOGLOBIN 12.5 g/dL (12.0-15.5); LYMPHOCYTES % (AUTO) 15.1 % (13-45); MEAN CORPUSCULAR HEMOGLOBIN 28.4 pg (27.0-33.4); MEAN CORPUSCULAR HGB CONC 33.9 g/dL (32.0-36.0); MEAN CORPUSCULAR VOLUME 84 fl (80-97); MONOCYTES % (AUTO) 5.1 % (3-13); PLATELET COUNT 267 10^3/uL (150-450); RED BLOOD COUNT 4.39 10^6/uL (3.72-5.28); RED CELL DISTRIBUTION WIDTH 15.3 % (11.5-14.0); SEGMENTED NEUTROPHILS % (AUTO) 77.4 % (42-78); TOTAL CELLS COUNTED % (AUTO) 100 %; WHITE BLOOD COUNT 16.3 10^3/uL (4.0-10.5)
[2018-04-22 02:25] LABS: APPEARANCE,URINE CLEAR; BILIRUBIN,URINE NEGATIVE (NEGATIVE); COLOR,URINE YELLOW; GLUCOSE, URINE NEGATIVE (NEGATIVE); KETONES,URINE NEGATIVE (NEGATIVE); LEUKOCYTE ESTERASE,URINE NEGATIVE (NEGATIVE); NITRITE,URINE NEGATIVE (NEGATIVE); PROTEIN,URINE NEGATIVE (NEGATIVE); URINE SPECIFIC GRAVITY 1.006; UROBILINOGEN,URINE NEGATIVE mg/dL (<2.0)
--- NOTE | 2018-04-22 02:32 | RADIOLOGY REPORT (SQ) ---
EXAM DESCRIPTION: XR CHEST 1 VIEW COMPLETED DATE/TME: 04/21/2018 23:25 CLINICAL HISTORY: 52 years, Female, difficulty breathing COMPARISON: 04/16/2018 NUMBER OF VIEWS: Two TECHNIQUE: Two views of chest LIMITATIONS: None. FINDINGS: Again noted are bilateral airspace opacities, grossly similar compared to the prior. The heart is normal in size. There is no pneumothorax or pleural effusion. The bones are unchanged. IMPRESSION: No significant change compared to the prior exam. Grossly stable bilateral airspace opacities, concerning for pneumonia copyright 2010 [employer]- All Rights Reserved
[2018-04-22 02:34] LABS: A TYPE INFLUENZA AG NEGATIVE (NEGATIVE); B INFLUENZA AG NEGATIVE (NEGATIVE)
[2018-04-22 02:43] LABS: ALANINE AMINOTRANSFERASE 11 U/L (9-52); ALBUMIN 4.3 g/dL (3.5-5.0); ALKALINE PHOSPHATASE 77 U/L (38-126); ANION GAP 14 (5-19); ASPARTATE AMINO TRANSFERASE 30 U/L (14-36); BILIRUBIN,DIRECT 0.3 mg/dL (0.0-0.4); BILIRUBIN,TOTAL 1.1 mg/dL (0.2-1.3); BLOOD UREA NITROGEN 6 mg/dL (7-20); CALCIUM 9.4 mg/dL (8.4-10.2); CARBON DIOXIDE 32 mmol/L (22-30); CHLORIDE 92 mmol/L (98-107); GLUCOSE 172 mg/dL (75-110); POTASSIUM 3.3 mmol/L (3.6-5.0); SODIUM 137.5 mmol/L (137-145); TOTAL PROTEIN 7.3 g/dL (6.3-8.2)
[2018-04-22] MEDS ORDERED: AZTREONAM INJ 1 GM VIAL IV ONE (04:08)
[2018-04-22] MEDS ORDERED: DOXYCYCLINE HYCLATE INJ 100 MG VIAL IV ONE (04:08)
[2018-04-22] MEDS ORDERED: METHYLPREDNISOLONE INJ 125 MG/2 ML SDV IV ONE (04:09)
--- NOTE | 2018-04-22 04:10 | ER Document Report ---
ED Respiratory Problem - General Chief Complaint: Breathing Difficulty Stated Complaint: TROUBLE BREATHING Time Seen by Provider: 04/22/18 01:23 Notes: Patient is a 52-year-old female chief complaint of fevers, cough, wheezing, shortness of breath, body aches. Seen about 4 days ago, had a chest x-ray that showed bronchopneumonia bilaterally, placed on Levaquin, states she has been taking Levaquin for 4 days now and still has no change in cough and still is persistently running fevers including today. Former smoker, history of asthma, also on prednisone for the past 4 days. Has not had the influenza vaccine, was not checked for this before. TRAVEL OUTSIDE OF THE [place] IN LAST 30 DAYS: No - Related Data Allergies/Adverse Reactions: beeswax [Beeswax] Allergy (Verified 04/16/18 17:43) ceftriaxone [From Rocephin] Allergy (Verified 04/16/18 17:43) erythromycin base [Erythromycin Base] Allergy (Verified 04/16/18 17:43) naloxone Allergy (Verified 04/16/18 17:43) Penicillins Allergy (Verified 04/16/18 17:43) Past Medical History - General Information source: Patient - Social History Smoking Status: Former Smoker Chew tobacco use (# tins/day): No Frequency of alcohol use: None Drug Abuse: None Lives with: Alone Family History: Reviewed & Not Pertinent, Hypertension Patient has suicidal ideation: No Patient has homicidal ideation: No - Past Medical History Cardiac Medical History: Reports: Hx Hypertension Pulmonary Medical History: Reports: Hx Bronchitis, Hx Pneumonia Neurological Medical History: Reports: Hx Migraine Renal/ Medical History: Denies: Hx Peritoneal Dialysis Malignancy Medical History: Reports: Hx Breast Cancer - Bilateral Musculoskeletal Medical History: Reports Hx Arthritis - Degenerative disc disease, Reports Hx Musculoskeletal Deformity, Reports Hx Musculoskeletal Trauma - Right MCL right rotator cuff Psychiatric Medical History: Reports: Hx Depression Past Surgical History: Reports: Hx Breast Surgery - bilateral, Hx Section - 3, Hx Orthopedic Surgery - Right knee MCL right shoulder rotator cuff - Immunizations Immunizations up to date: Yes Hx Diphtheria, Pertussis, Tetanus Vaccination: Yes Review of Systems - Review of Systems Constitutional: See HPI EENT: No symptoms reported Cardiovascular: No symptoms reported Respiratory: See HPI Gastrointestinal: No symptoms reported Genitourinary: No symptoms reported Female Genitourinary: No symptoms reported Musculoskeletal: No symptoms reported Skin: No symptoms reported Hematologic/Lymphatic: No symptoms reported Neurological/Psychological: No symptoms reported Physical Exam - Vital signs Vitals: Temp Pulse Resp BP Pulse Ox 100.6 F H 94 20 103/78 95 04/21/18 23:32 04/21/18 23:32 04/21/18 23:32 04/21/18 23:32 04/21/18 23:32 - Notes Notes: GENERAL: Alert but ill-appearing HEAD: Normocephalic, atraumatic. EYES: Pupils equal, round, and reactive to light. Extraocular movements intact. ENT: Oral mucosa moist, tongue midline. Oropharynx unremarkable. Airway patent. Nares patent, no nasal septal hematoma, TM's intact. NECK: Full range of motion. Supple. Trachea midline. LUNGS: Scattered rhonchi, few scattered wheezes, congested cough, no tachypnea or distress HEART: Regular rate and rhythm. No murmur ABDOMEN: Soft, non-tender. Non-distended. Bowel sounds present in all 4 quadrants. GENITOURINARY: Deferred EXTREMITIES: Moves all 4 extremities spontaneously. No edema, normal radial and dorsalis pedis pulses bilaterally. No cyanosis. BACK: no cervical, thoracic, lumbar midline tenderness. No saddle anesthesia, normal distal neurovascular exam. NEUROLOGICAL: Alert and oriented x3. Normal speech. [cranial nerves II through XII grossly intact]. PSYCH: Normal affect, normal mood. SKIN: Flushed Course - Re-evaluation Re-evalutation: When I reevaluated patient at bedside in the room she is hypoxic at 90% on room air. She was placed on 2 L nasal cannula. She is ill-appearing but not in respiratory distress. CBC shows leukocytosis, I do not have a comparison to prior before steroids. Chest x-ray shows bilateral pneumonia. No significant change from prior. Gen eral workup otherwise unremarkable, influenza is negative. Concern because of patient's persistent fevers, failure to improve with Levaquin, and hypoxia. Patient is failed outpatient treatment. I did discuss with Dr. Navarro, patient has difficult allergies, placed on doxycycline and aztreonam to start with. Called and spoke with Dr. Wheeler, he states he has not seen the patient in the office in years and as a result his office policy is that he does not admit the patient. Called and spoke with Dr. Benz, patient admitted to the medical floor. Patient states agreement with plan. - Vital Signs Vital signs: Temp Pulse Resp BP Pulse Ox 100.6 F H 94 20 103/78 98 04/21/18 23:32 04/21/18 23:32 04/21/18 23:32 04/21/18 23:32 04/22/18 04:44 - Laboratory Result Diagrams: 04/22/18 02:00 04/22/18 02:00 Laboratory results interpreted by me: 04/22/18 04/22/18 04/22/18 02:00 02:00 02:00 WBC 16.3 H RDW 15.3 H Absolute Neutrophils 12.6 H Potassium 3.3 L Chloride 92 L Carbon Dioxide 32 H BUN 6 L Glucose 172 H Urine Blood MODERATE H Discharge - Discharge Clinical Impression: Hypoxia, Wheezing, COPD exacerbation Pneumonia Qualifiers: Pneumonia type: due to unspecified organism Laterality: bilateral Lung location: unspecified part of lung Qualified Code(s): J18.9 - Pneumonia, unspecified organism Fever Qualifiers: Fever type: unspecified Qualified Code(s): R50.9 - Fever, unspecified Condition: Stable Disposition: ADMITTED INPATIENT Admitting Provider: Hospitalist Unit Admitted: Medical Floor
[2018-04-22] MEDS ORDERED: OXYCODONE HCL IR 5 MG TABLET PO ONE (04:32)
[2018-04-22] MEDS ORDERED: ONDANSETRON 4 MG TAB.RAPDIS PO PRN (05:18)
[2018-04-22] MEDS ORDERED: ONDANSETRON HCL INJ/PF 4 MG/2 ML SDV IV PRN (05:18)
[2018-04-22] MEDS ORDERED: MAGNESIUM HYDROXIDE SUSP 30 ML UDCUP PO PRN (05:18)
[2018-04-22] MEDS ORDERED: MAG HYDROX/AL HYDROX/SIMETH SUSP 30 ML UDCUP PO PRN (05:18)
[2018-04-22] MEDS ORDERED: ALBUTEROL SULFATE 0.083% NEB 2.5 MG/3 ML AMPUL NEB PRN (05:18)
[2018-04-22] MEDS ORDERED: ACETAMINOPHEN 325 MG TABLET PO PRN (05:25)
[2018-04-22] MEDS ORDERED: NALBUPHINE HCL INJ 10 MG/1 ML AMPULE IV PRN (05:25)
[2018-04-22] MEDS ORDERED: NICOTINE 21 MG/24 HR PATCH.TD24 TD PRN (05:25)
[2018-04-22] MEDS ORDERED: GLUCAGON,HUMAN RECOMB 1 MG INJ IM PRN (05:35)
[2018-04-22] MEDS ORDERED: DEXTROSE 40% GEL 15 GM TUBE PO PRN ×2 (05:35)
[2018-04-22] MEDS ORDERED: DEXTROSE 50%-WATER 25 GM/50 ML DISP.SYRIN IV PRN ×2 (05:35)
[2018-04-22] MEDS ORDERED: BENZONATATE 100 MG CAPSULE PO PRN (05:36)
[2018-04-22] MEDS ORDERED: METHYLPREDNISOLONE INJ 40 MG/1 ML SDV IV SCH (06:00)
[2018-04-22] MEDS: HEPARIN SOD (PORCINE) 5,000 UNIT/ML 1 ML SYRINGE SUBCUT SCH ×3 (06:09→21:32)
[2018-04-22] MEDS ORDERED: GABAPENTIN 300 MG CAPSULE PO ONE (06:30)
--- NOTE | 2018-04-22 06:40 | PDOC H&P ---
History of Present Illness Admission Date/PCP: 04/22/18 04:34 Patient complains of: Dyspnea History of Present Illness: ALLYSON OVERTON is a 52 year old female who re-presented to the emergency room after 5 days of outpatient therapy with a one-week history of progressively worsening dyspnea. The patient admits that she was treated in the emergency room on 04/16/2018 and after her evaluation received prescriptions for oral Levaquin and oral prednisone which she filled and has been taking as directed. She further adds that the medication is not seem to help her nor has she been getting any relief from use of her albuterol nebulizer at home. She now descri bes her dyspnea as severe and notes that it limits her for all activity even minimal ambulation in her home. She continues to acknowledge the associated symptoms of a severe paroxysmal nonproductive cough, severe wheezing which is also dramatically increased by exertion, fever to 101.5 F present constantly despite use of ibuprofen, chills with rigors, severe muscle aches and generalized malaise. She admits prior similar episodes with exacerbations of her asthma/COPD in the past. She has not identified any other aggravating or ameliorating factors for her dyspnea. In the emergency room she was found to have moderate hypoxia at rest and a mildly elevated white blood count (consistent with use of steroids) as well as a chest x-ray which is unchanged from her previous film which had been interpreted as showing bilateral airspace disease although to my evaluation the film appears to be essentially normal with perhaps some minimal fibrotic changes related to her mild COPD. Because of the necessity to provide supplemental oxygen and an essentially failed outpatient treatment, the patient she will be admitted to the hospital for further evaluation treatment of her acute exacerbation of chronic obstructive pulmonary disease and possible underlying pneumonitis. Past Medical History Cardiac Medical History: Reports: Hypertension Denies: Congestive Heart Failure, Coronary Artery Disease, DVT, Myocardial Infarction, Hyperlipidema, Pulmonary Embolism Pulmonary Medical History: Reports: Asthma, Bronchitis, Chronic Obstructive Pulmonary Disease (COPD), Pneumonia EENT Medical History: Reports: None Neurological Medical History: Reports: Migraine Denies: Multiple Sclerosis, Seizures Endocrine Medical History: Reports: Obesity Denies: Diabetes Mellitus Type 1, Diabetes Mellitus Type 2, Hyperthyroidism, Hypothyroidism Renal/ Medical History: Denies: Chronic Kidney Disease, Nephrolithiasis Malignancy Medical History: Reports: Breast Cancer - Bilateral GI Medical History: Denies: Cirrhosis, Hepatitis Musculoskeltal Medical History: Reports: Arthritis - Degenerative disc disease Denies: Gout Skin Medical History: Denies: Eczema, Psoriasis Psychiatric Medical History: Reports: Depression, Tobacco Dependency Denies: Alcohol Dependency, Substance Abuse Traumatic Medical History: Reports: None Hematology: Denies: Anemia, Bleeding Tendencies Infectious Medical History: Reports: None Past Surgical History Past Surgical History: Reports: Section - 3, Orthopedic Surgery - Right knee MCL right shoulder rotator cuff Social History Information Source: Patient Lives with: Family Smoking Status: Current Every Day Smoker Frequency of Alcohol Use: None Hx Recreational Drug Use: No Drugs: None Hx Prescription Drug Abuse: Yes - Currently on Subutex therapy for opiate addiction. - Advance Directive Resuscitation Status: Full Code Surrogate healthcare decision maker:: Tamy Christian Family History Family History: Hypertension Parental Family History Reviewed: Yes Children Family History Reviewed: No Sibling(s) Family History Reviewed.: Yes Medication/Allergy Home Medications: Buprenorphine HCl [Subutex 8 mg Sublingual Tablet] 8 mg PO Q12 11/22/16 Dextroamphetamine/Amphetamine [Adderall 20 mg Tablet] 20 mg PO DAILY 11/22/16 Fluoxetine HCl [Prozac] 40 mg PO DAILY 11/22/16 Gabapentin [Neurontin] 600 mg PO Q8H 11/22/16 Trazodone HCl [Desyrel] 150 mg PO QHS 11/22/16 Doxycycline Hyclate [Vibramycin 100 mg Tablet] 100 mg PO Q12 #14 tablet 11/26/16 Furosemide [Lasix 20 mg Tablet] 20 mg PO DAILY #30 tablet 11/26/16 Potassium Chloride 20 meq PO DAILY #30 tab.er.prt 11/26/16 Cyclobenzaprine HCl [Flexeril 10 mg Tablet] 10 mg PO TIDP PRN #15 tab 07/12/17 Prednisone [Deltasone 20 mg Tablet] 3 tab PO DAILY 5 Days tablet 07/12/17 Benzonatate [Tessalon Perle 100 mg Capsule] 100 mg PO Q8HP PRN #20 cap 02/20/18 Doxycycline Hyclate 100 mg PO BID #14 capsule 02/20/18 Prednisone [Deltasone 20 mg Tablet] 40 mg PO DAILY 5 Days #10 tablet 02/20/18 Albuterol Sulfate [Proventil 0.5% Neb 2.5 mg/0.5 ml Vial.neb] 2.5 mg NEB Q4HP PRN #25 vial.neb 04/16/18 Levofloxacin [Levaquin 750 mg Tablet] 750 mg PO DAILY #7 tab 04/16/18 Prednisone [Deltasone 20 mg Tablet] 3 tab PO DAILY 5 Days tablet 04/16/18 Allergies/Adverse Reactions: beeswax [Beeswax] Allergy (Verified 04/16/18 17:43) ceftriaxone [From Rocephin] Allergy (Verified 04/16/18 17:43) erythromycin base [Erythromycin Base] Allergy (Verified 04/16/18 17:43) naloxone Allergy (Verified 04/16/18 17:43) Penicillins Allergy (Verified 04/16/18 17:43) Review of Systems Constitutional: PRESENT: as per HPI, chills, fever(s), other - Generalized malaise Eyes: ABSENT: visual disturbances, other - Eye pain Ears: ABSENT: hearing changes, other - Ear pain Nose, Mouth, and Throat: ABSENT: mouth pain, sore throat Cardiovascular: PRESENT: as per HPI, dyspnea on exertion. ABSENT: chest pain, edema, orthropnea, palpitations Respiratory: PRESENT: as per HPI, cough - Nonproductive, dyspnea Gastrointestinal: ABSENT: abdominal pain, constipation, diarrhea, nausea, vomiting Genitourinary: ABSENT: dysuria, hematuria Musculoskeletal: PRESENT: as per HPI, other - Generalized muscle aches and pains. ABSENT: deformity, joint swelling Integumentary: ABSENT: pruritus, rash Neurological: ABSENT: confusion, convulsions, focal weakness, memory loss Psychiatric: ABSENT: anxiety, depression Endocrine: ABSENT: cold intolerance, heat intolerance Hematologic/Lymphatic: ABSENT: easy bleeding, easy bruising Physical Exam Vital Signs: Temp Pulse Resp BP Pulse Ox 100.6 F H 94 20 103/78 98 04/21/18 23:32 04/21/18 23:32 04/21/18 23:32 04/21/18 23:32 04/22/18 04:44 Intake & Output 04/20/18 04/21/18 04/22/18 23:59 23:59 23:59 Weight 90.1 kg General appearance: PRESENT: cooperative, mild distress - Due to mild dyspnea, other - On 02 at 2 L/min per nasal cannula at the time my evaluation Head exam: PRESENT: atraumatic, normocephalic Eye exam: PRESENT: conjunctiva pink. ABSENT: scleral icterus Ear exam: PRESENT: normal external ear exam. ABSENT: bleeding, drainage Mouth exam: PRESENT: dry mucosa, neck supple Neck exam: ABSENT: JVD, thyromegaly, tracheal deviation Respiratory exam: PRESENT: decreased breath sounds - Minimal to mild decrease in breath sounds throughout all jefferson consistent with mild to moderate COPD, prolonged expiratory phas - Moderately prolonged expiratory phase present throu ghout all jefferson, symmetrical, wheezes - Expiratory wheezes present throughout all jefferson Cardiovascular exam: PRESENT: RRR. ABSENT: clicks, gallop, rubs Pulses: PRESENT: normal radial pulses, normal dorsalis pedis pul Vascular exam: PRESENT: normal capillary refill. ABSENT: pallor GI/Abdominal exam: PRESENT: normal bowel sounds, soft Rectal exam: PRESENT: deferred Extremities exam: ABSENT: joint swelling, pedal edema Musculoskeletal exam: PRESENT: full ROM, normal inspection. ABSENT: deformity, dislocation Neurological exam: PRESENT: alert, oriented to person, oriented to place, oriented to time, oriented to situation, CN II-XII grossly intact. ABSENT: motor sensory deficit Psychiatric exam: PRESENT: appropriate affect, normal mood Skin exam: PRESENT: dry, intact, warm. ABSENT: jaundice, rash, urticaria Results Laboratory Results: 04/22/18 02:00 04/22/18 02:00 04/22/18 04/22/18 04/22/18 02:00 02:00 02:00 WBC 16.3 H RBC 4.39 Hgb 12.5 Hct 36.8 MCV 84 MCH 28.4 MCHC 33.9 RDW 15.3 H Plt Count 267 Seg Neutrophils % 77.4 Lymphocytes % 15.1 Monocytes % 5.1 Eosinophils % 2.0 Basophils % 0.4 Absolute Neutrophils 12.6 H Absolute Lymphocytes 2.5 Absolute Monocytes 0.8 Absolute Eosinophils 0.3 Absolute Basophils 0.1 Sodium 137.5 Potassium 3.3 L Chloride 92 L Carbon Dioxide 32 H Anion Gap 14 BUN 6 L Creatinine 0.67 Est GFR ( Amer) > 60 Est GFR (Non-Af Amer) > 60 Glucose 172 H Calcium 9.4 Total Bilirubin 1.1 AST 30 ALT 11 Alkaline Phosphatase 77 Total Protein 7.3 Albumin 4.3 Urine Color YELLOW Urine Appearance CLEAR Urine pH 6.0 Ur Specific [place] 1.006 Urine Protein NEGATIVE Urine Glucose (UA) NEGATIVE Urine Ketones NEGATIVE Urine Blood MODERATE H Urine Nitrite NEGATIVE Ur Leukocyte Esterase NEGATIVE Urine WBC (Auto) 0 Urine RBC (Auto) 2 Impressions: Chest X-Ray 04/21/18 23:25 IMPRESSION: No significant change compared to the prior exam. Grossly stable bilateral airspace opacities, concerning for pneumonia copyright 2011 [employer]- All Rights Reserved Assessment & Plan - Diagnosis (1) Acute respiratory failure with hypoxia Is this a current diagnosis for this admission?: Yes Plan: Patient will be treated with supplemental oxygen via nasal cannula or other device as required to maintain adequate oxygenation. (2) Acute exacerbation of COPD with asthma Is this a current diagnosis for this admission?: Yes Plan: Patient be treated with aggressive pulmonary toilet utilizing Xopenex, Atrovent, Pulmicort and albuterol nebulizers. She will be treated with intravenous steroids utilizing Solu-Medrol and supplemental oxygen. (3) Atypical pneumonia Is this a current diagnosis for this admission?: Yes Plan: Patient will be treated with doxycycline 100 mg p.o. twice daily for her atypical pneumonia which thus far has been unresponsive to outpatient therapy with Levaquin and oral prednisone. She will utilize Tessalon Perles to help with her cough and she may use Nubain 10 mg IV every 3 hours as needed for pain. (4) Tobacco use disorder, severe, dependence Is this a current diagnosis for this admission?: Yes Plan: Patient was given advised to discontinue smoking and cessation counseling was provided briefly. A nicotine replacement patch will be available for the patient's use. - Time Time Spent: 30 to 50 Minutes Critical Time spent with patient: Less than 15 minutes Smoking Cessation Education: 3 to 10 minutes Medications reviewed and adjusted accordingly: Yes Anticipated discharge: Home - Inpatient Certification Based on my medical assessment, after consideration of the patient's comorbidities, presenting symptoms, or acuity I expect that the services needed warrant INPATIENT care.: Yes I certify that my determination is in accordance with my understanding of Medicare's requirements for reasonable and necessary INPATIENT services [42 CFR 412.3e].: Yes Medical Necessity: Failure to Improve With Outpatient Therapy, Need Close Monitoring Due to Risk of Patient Decompensation, Need for Nebulizer Therapy and Monitoring of Response, Risk of Complication if Not Cared For in Hospital
[2018-04-22] MEDS: LEVALBUTEROL HCL NEB 1.25 MG/3 ML AMPUL NEB SCH ×2 (07:29→16:52)
[2018-04-22] MEDS: BUDESONIDE NEB 0.5 MG/2 ML AMPUL NEB SCH ×2 (07:29→20:21)
[2018-04-22] MEDS: IPRATROPIUM BROMIDE 0.02% NEB 0.5 MG/2.5 ML AMPUL NEB SCH ×2 (07:29→16:52)
[2018-04-22] MEDS: ACETYLCYSTEINE 20% SOLN 800 MG/4 ML VIAL.NEB NEB SCH ×2 (07:30→20:21)
[2018-04-22] MEDS: METHYLPREDNISOLONE INJ 40 MG/1 ML SDV IV SCH ×3 (09:44→21:34)
[2018-04-22] MEDS: DOXYCYCLINE HYCLATE 100 MG TABLET PO SCH ×2 (09:44→17:28)
[2018-04-22] MEDS: FUROSEMIDE 20 MG TABLET PO SCH (09:44)
[2018-04-22] MEDS: FAMOTIDINE 20 MG TABLET PO SCH ×2 (09:44→21:33)
[2018-04-22] MEDS: POTASSIUM CHLORIDE 10 MEQ CAPSULE.ER PO SCH (09:45)
[2018-04-22] MEDS: DOCUSATE SODIUM 100 MG CAPSULE PO SCH ×2 (09:47→17:28)
[2018-04-22] MEDS ORDERED: GABAPENTIN 300 MG CAPSULE PO SCH (10:00)
[2018-04-22] MEDS ORDERED: (PENDING PHARMACY ID) (Dextroamphetamine/Amphetamine [Adderall 20 Mg Tablet] 20 MG) PO SCH (10:00)
[2018-04-22] MEDS ORDERED: BUPRENORPHINE HCL 2 MG SUBLINGUAL TABLET SL SCH (10:00)
[2018-04-22] MEDS ORDERED: FLUOXETINE HCL 20 MG CAPSULE PO SCH (10:00)
--- NOTE | 2018-04-22 11:42 | PDOC PROGRESS REPORT ---
Subjective Progress Note for:: 04/22/18 Subjective:: 52-year-old female admitted for failed outpatient antibiotic therapy. Was placed on doxycycline during this hospital stay. He reported a fever of 101.5 at home. She is admitted with a COPD exacerbation with underlying possible pneumonitis. Blood cultures are pending. She is on doxycycline. Reason For Visit: ACUTE EXACERBATION OF COPD, ATYPICAL PNEUMONIA, Physical Exam Vital Signs: Temp Pulse Resp BP Pulse Ox 98.0 F 93 18 90/46 L 98 04/22/18 08:14 04/22/18 08:14 04/22/18 08:14 04/22/18 08:14 04/22/18 08:14 Intake & Output 04/21/18 04/22/18 04/23/18 06:59 06:59 06:59 Weight 90.1 kg 88.7 kg General appearance: PRESENT: no acute distress Head exam: PRESENT: atraumatic Eye exam: PRESENT: PERRLA Mouth exam: PRESENT: moist, tongue midline Neck exam: ABSENT: carotid bruit, JVD, lymphadenopathy, thyromegaly Respiratory exam: PRESENT: decreased breath sounds, wheezes Cardiovascular exam: PRESENT: tachycardia GI/Abdominal exam: PRESENT: normal bowel sounds, soft. ABSENT: distended, guarding, mass, organolmegaly, rebound, tenderness Neurological exam: PRESENT: alert, awake, oriented to person, oriented to place, oriented to time, oriented to situation, CN II-XII grossly intact. ABSENT: motor sensory deficit Psychiatric exam: PRESENT: appropriate affect, normal mood. ABSENT: homicidal ideation, suicidal ideation Results Laboratory Results: 04/22/18 02:00 04/22/18 02:00 04/22/18 04/22/18 04/22/18 02:00 02:00 02:00 WBC 16.3 H RBC 4.39 Hgb 12.5 Hct 36.8 MCV 84 MCH 28.4 MCHC 33.9 RDW 15.3 H Plt Count 267 Seg Neutrophils % 77.4 Lymphocytes % 15.1 Monocytes % 5.1 Eosinophils % 2.0 Basophils % 0.4 Absolute Neutrophils 12.6 H Absolute Lymphocytes 2.5 Absolute Monocytes 0.8 Absolute Eosinophils 0.3 Absolute Basophils 0.1 Sodium 137.5 Potassium 3.3 L Chloride 92 L Carbon Dioxide 32 H Anion Gap 14 BUN 6 L Creatinine 0.67 Est GFR ( Amer) > 60 Est GFR (Non-Af Amer) > 60 Glucose 172 H Calcium 9.4 Total Bilirubin 1.1 AST 30 ALT 11 Alkaline Phosphatase 77 Total Protein 7.3 Albumin 4.3 Urine Color YELLOW Urine Appearance CLEAR Urine pH 6.0 Ur Specific [place] 1.006 Urine Protein NEGATIVE Urine Glucose (UA) NEGATIVE Urine Ketones NEGATIVE Urine Blood MODERATE H Urine Nitrite NEGATIVE Ur Leukocyte Esterase NEGATIVE Urine WBC (Auto) 0 Urine RBC (Auto) 2 Impressions: Chest X-Ray 04/21/18 23:25 IMPRESSION: No significant change compared to the prior exam. Grossly stable bilateral airspace opacities, concerning for pneumonia copyright 2010 [employer]- All Rights Reserved Assessment & Plan - Diagnosis (1) Acute exacerbation of COPD with asthma Is this a current diagnosis for this admission?: Yes Plan: Patient is on oxygen via nasal cannula, pulse ox is 98% on room air today. (2) COPD exacerbation Is this a current diagnosis for this admission?: Yes Plan: Patient be treated with aggressive pulmonary toilet utilizing Xopenex, Atrovent, Pulmicort and albuterol nebulizers. She will be treated with intravenous radha roids utilizing Solu-Medrol and supplemental oxygen. 04/22/2018-patient is receiving Xopenex, Atrovent, Pulmicort and albuterol nebulizations. She is on oxygen 2 L nasal cannula. Pulse ox is 98% on room air today. She is receiving doxycycline 100 mg p.o. twice a day. Patient is also on IV Solu-Medrol 40 mg every 6 hours. Plan is to continue the present management. (3) Atypical pneumonia Is this a current diagnosis for this admission?: Yes Plan: 04/22/2018 patient was admitted with atypical pneumonia most likely community-a cquired. Failed outpatient antibiotic therapy with Levaquin and oral prednisone. Presently on doxycycline 100 mg p.o. twice daily and blood cultures are pending. (4) Tobacco use disorder, severe, dependence Is this a current diagnosis for this admission?: Yes Plan: 04/22/2018 patient has history of chronic smoking requesting a nicotine patches. Smoking counseling was provided for more than 20 minutes. - Time Time Spent with patient: 15-24 minutes Smoking Cessation Education: over 10 minutes Medications reviewed and adjusted accordingly: Yes Anticipated discharge: Home
[2018-04-22] MEDS: CETIRIZINE 10 MG TABLET PO SCH (12:50)
[2018-04-22] MEDS: MULTIVITAMIN TABLET PO SCH (12:50)
[2018-04-22] MEDS: FLUOXETINE HCL 20 MG CAPSULE PO SCH (12:50)
[2018-04-22] MEDS: GABAPENTIN 300 MG CAPSULE PO SCH ×2 (13:10→21:33)
--- NOTE | 2018-04-22 15:16 | RADIOLOGY REPORT (SQ) ---
EXAM DESCRIPTION: CT CHEST WITHOUT COMPLETED DATE/TIME: 04/22/2018 2:19 pm REASON FOR STUDY: pneumonia COMPARISON: Chest x-ray 04/16/2018 04/22/2018 TECHNIQUE: CT scan performed of the chest without intravenous contrast. Images reviewed with lung, soft tissue and bone windows. Reconstructed coronal and sagittal MPR images reviewed. All images st ored on PACS. All CT scanners at this facility use dose modulation, iterative reconstruction, and/or weight based d osing when appropriate to reduce radiation dose to as low as reasonably achievable (ALARA). [facility]: Dose Right [facility]: CareDose [facility]: Dose Right [facility]: Teradose 4D [facility]: [employer] RADIATION DOSE: CT Rad equipment meets quality standard of care and radiation dose reduction techniq ues were employed. CTDIvol: 10.2 mGy. DLP: 385 mGy-cm. mGy. LIMITATIONS: No technical limitations. FINDINGS: LUNGS AND PLEURA: Fairly extensive patchy ground-glass infiltrates are present in both ross gs. HILAR AND MEDIASTINAL STRUCTURES: There is mediastinal adenopathy. There are couple of precarinal no archie with a short axis diameter about 10 mm. HEART AND VASCULAR STRUCTURES: No aneurysm. No pericardial effusion. UPPER ABDOMEN: Hypoattenuation of the liver. THYROID AND OTHER SOFT TISSUES: No masses. No adenopathy. BONES: No significant finding. HARDWARE: None in the chest. OTHER: No other significant findings. IMPRESSION: 1. Extensive patchy ground-glass infiltrates in both lungs. May suggest an atypical in fectious process. 2. Mild mediastinal adenopathy, likely reactive. 3. Fatty infiltration of the liver. TECHNICAL DOCUMENTATION: JOB ID: [id number] Quality ID # [id number]: Final reports with documentation of one or more dose reduction techniques (e.g., Au tomated exposure control, adjustment of the mA and/or kV according to patient size, use of iterative reconstruction technique) 2010 [employer]- All Rights Reserved Reading location - IP/workstation name: [email or web address]
[2018-04-22] MEDS: BUPRENORPHINE HCL 2 MG SUBLINGUAL TABLET SL SCH ×2 (17:26→22:01)
[2018-04-22] MEDS: INSULIN REG, HUMAN 100 UNIT/ML 3 ML VIAL (PYX) SUBCUT PRN ×2 (17:30→21:33)
[2018-04-22] MEDS ORDERED: TRAZODONE HCL 50 MG TABLET PO SCH (22:00)
[2018-04-23] MEDS: IPRATROPIUM BROMIDE 0.02% NEB 0.5 MG/2.5 ML AMPUL NEB SCH ×2 (00:07→08:20)
[2018-04-23] MEDS: LEVALBUTEROL HCL NEB 1.25 MG/3 ML AMPUL NEB SCH ×2 (00:07→08:20)
[2018-04-23] MEDS: METHYLPREDNISOLONE INJ 40 MG/1 ML SDV IV SCH ×2 (02:36→09:39)
[2018-04-23 05:41] LABS: ABSOLUTE LYMPHOCYTES (AUTO) 1.2 10^3/uL (0.5-4.7); ABSOLUTE MONOCYTES (AUTO) 0.3 10^3/uL (0.1-1.4); ABSOLUTE NEUT (AUTO) 14.1 10^3/uL (1.7-8.2); BASOPHILS % (AUTO) 0.2 % (0-2); HEMATOCRIT 36.9 % (36.0-47.0); HEMOGLOBIN 12.5 g/dL (12.0-15.5); LYMPHOCYTES % (AUTO) 7.6 % (13-45); MEAN CORPUSCULAR HEMOGLOBIN 28.2 pg (27.0-33.4); MEAN CORPUSCULAR HGB CONC 33.8 g/dL (32.0-36.0); MEAN CORPUSCULAR VOLUME 84 fl (80-97); PLATELET COUNT 252 10^3/uL (150-450); RED BLOOD COUNT 4.42 10^6/uL (3.72-5.28); RED CELL DISTRIBUTION WIDTH 14.9 % (11.5-14.0); SEGMENTED NEUTROPHILS % (AUTO) 90.2 % (42-78); TOTAL CELLS COUNTED % (AUTO) 100 %; WHITE BLOOD COUNT 15.6 10^3/uL (4.0-10.5)
[2018-04-23] MEDS: HEPARIN SOD (PORCINE) 5,000 UNIT/ML 1 ML SYRINGE SUBCUT SCH ×2 (05:58→13:17)
[2018-04-23] MEDS: BUPRENORPHINE HCL 2 MG SUBLINGUAL TABLET SL SCH ×2 (05:58→13:16)
[2018-04-23] MEDS: GABAPENTIN 300 MG CAPSULE PO SCH ×2 (05:58→13:16)
[2018-04-23 06:03] LABS: ALANINE AMINOTRANSFERASE 28 U/L (9-52); ALBUMIN 3.9 g/dL (3.5-5.0); ALKALINE PHOSPHATASE 79 U/L (38-126); ANION GAP 9 (5-19); ASPARTATE AMINO TRANSFERASE 33 U/L (14-36); BILIRUBIN,DIRECT 0.3 mg/dL (0.0-0.4); BILIRUBIN,TOTAL 0.4 mg/dL (0.2-1.3); BLOOD UREA NITROGEN 12 mg/dL (7-20); CALCIUM 9.5 mg/dL (8.4-10.2); CARBON DIOXIDE 33 mmol/L (22-30); CHLORIDE 99 mmol/L (98-107); CHOLESTEROL 189.58 mg/dL (0-200); GLUCOSE 164 mg/dL (75-110); POTASSIUM 3.7 mmol/L (3.6-5.0); SODIUM 141.2 mmol/L (137-145); TOTAL PROTEIN 6.9 g/dL (6.3-8.2); TRIGLYCERIDES 122 mg/dL (<150)
[2018-04-23 06:16] LABS: DIRECT LDL 145 mg/dL (<100)
[2018-04-23 06:19] LABS: FREE T3 2.5 pg/mL (2.77-5.27); FREE T4 (FREE THYROXINE) 1.15 ng/dL (0.78-2.19)
[2018-04-23 06:33] LABS: THYROID STIMULATING HORMONE 0.48 uIU/mL (0.47-4.68)
[2018-04-23] MEDS: INSULIN REG, HUMAN 100 UNIT/ML 3 ML VIAL (PYX) SUBCUT PRN ×2 (07:58→11:47)
[2018-04-23] MEDS: BUDESONIDE NEB 0.5 MG/2 ML AMPUL NEB SCH (08:20)
[2018-04-23] MEDS: ACETYLCYSTEINE 20% SOLN 800 MG/4 ML VIAL.NEB NEB SCH (08:20)
--- NOTE | 2018-04-23 09:34 | EKG REPORT ---
SEVERITY:- ABNORMAL ECG - SINUS RHYTHM NONSPECIFIC T ABNORMALITIES, ANTERIOR LEADS : Confirmed by: Magaly iPerce 23-Apr-2018 09:34:02
[2018-04-23] MEDS: FUROSEMIDE 20 MG TABLET PO SCH (09:38)
[2018-04-23] MEDS: POTASSIUM CHLORIDE 10 MEQ CAPSULE.ER PO SCH (09:38)
[2018-04-23] MEDS: DOXYCYCLINE HYCLATE 100 MG TABLET PO SCH (09:38)
[2018-04-23] MEDS: DOCUSATE SODIUM 100 MG CAPSULE PO SCH (09:38)
[2018-04-23] MEDS: CETIRIZINE 10 MG TABLET PO SCH (09:39)
[2018-04-23] MEDS: MULTIVITAMIN TABLET PO SCH (09:39)
[2018-04-23] MEDS: FAMOTIDINE 20 MG TABLET PO SCH (09:39)
[2018-04-23] MEDS: FLUOXETINE HCL 20 MG CAPSULE PO SCH (09:39)
[2018-04-23] MEDS ORDERED: (PENDING PHARMACY ID) (Multivit/Folic Acid/Vit K1 [One-A-Day Women's 50 Plus Tab] 1 EACH) PO SCH (10:00)
[2018-04-23] MEDS ORDERED: ONDANSETRON 4 MG TAB.RAPDIS PO PRN (10:00)
[2018-04-23] MEDS ORDERED: ONDANSETRON HCL INJ/PF 4 MG/2 ML SDV IV PRN (10:00)
[2018-04-23 13:13] VITALS: BP 124/76
--- NOTE | 2018-04-23 16:18 | PDOC DISCHARGE SUMMARY ---
General - Admit/Disc Date/PCP Admission Date/Primary Care Provider: 04/22/18 04:34 Discharge Date: 04/23/18 - Discharge Diagnosis (1) COPD exacerbation Is this a current diagnosis for this admission?: Yes Summary: Responded quickly to steroids and bronchodilators. We will continue a short course of prednisone at home. (2) Atypical pneumonia Is this a current diagnosis for this admission?: Yes Summary: Has responded well to doxycycline. Was initially febrile when she came in. Had been on a course of Levaquin as an outpatient. She will finish up with a course of doxycycline at home. - Additional Information Resuscitation Status: Full Code Discharge Diet: Regular Discharge Activity: Activity As Tolerated Prescriptions: Doxycycline Hyclate [Vibramycin 100 mg Tablet] 100 mg PO BIDPCBS #10 tablet Gabapentin [Neurontin 300 mg Capsule] 600 mg PO Q8 #180 capsule Prednisone [Deltasone 20 mg Tablet] 40 mg PO DAILY #10 tablet Home Medications: Buprenorphine HCl [Subutex 8 mg Sublingual Tablet] 8 mg PO TID 11/22/16 Trazodone HCl [Desyrel] 150 mg PO QHS 11/22/16 Cetirizine HCl [Zyrtec 10 mg Tablet] 10 mg PO DAILY 04/22/18 Fluoxetine HCl [Prozac 20 mg Capsule] 60 mg PO DAILY 04/22/18 Hydrochlorothiazide [Hydrodiuril 25 mg Tablet] 25 mg PO DAILYP PRN 04/22/18 Multivit/Folic Acid/Vit K1 [One-A-Day Women's 50 Plus Tab] 1 each PO DAILY 04/22/18 Doxycycline Hyclate [Vibramycin 100 mg Tablet] 100 mg PO BIDPCBS #10 tablet 04/23/18 Gabapentin [Neurontin 300 mg Capsule] 600 mg PO Q8 #180 capsule 04/23/18 Prednisone [Deltasone 20 mg Tablet] 40 mg PO DAILY #10 tablet 04/23/18 History of Present Illness History of Present Illness: ALLYSON OVERTON is a 52 year old female who re-presented to the emergency room after 5 days of outpatient therapy with a one-week history of progressively worsening dyspnea. The patient admits that she was treated in the emergency room on 04/16/2018 and after her evaluation received prescriptions for oral Levaquin and oral prednisone which she filled and has been taking as directed. She further adds that the medication is not seem to help her nor has she been getting any relief from use of her albuterol nebulizer at home. She now describes her dyspnea as severe and notes that it limits her for all activity even minimal ambulation in her home. She continues to acknowledge the associated symptoms of a severe paroxysmal nonproductive cough, severe wheezing which is also dramatically increased by exertion, fever to 101.5 F present constantly despite use of ibuprofen, chills with rigors, severe muscle aches and generalized malaise. She admits prior similar episodes with exacerbations of her asthma/COPD in the past. She has not identified any other aggravating or am eliorating factors for her dyspnea. In the emergency room she was found to have moderate hypoxia at rest and a mildly elevated white blood count (consistent with use of steroids) as well as a chest x-ray which is unchanged from her previous film which had been interpreted as showing bilateral airspace disease although to my evaluation the film appears to be essentially normal with perhaps some minimal fibrotic changes related to her mild COPD. Because of the necessity to provide supplemental oxygen and an essentially failed outpatient treatment, the patient she will be admitted to the hospital for further evaluation treatment of her acute exacerbation of chronic obstructive pulmonary disease and possible underlying pneumonitis. Hospital Course Hospital Course: She responded very quickly to steroids and bronchodilators. He Solu-Medrol made her blood sugars substantially elevated, but when she was on prednisone her sugars were not as bad. She will finish a short burst of prednisone at home. She apparently had been started on some Levaquin but we had her on doxycycline here and she is done well on that so she will continue a course of that at home. She was on room air this morning ambulating around the room independently performing ADLs and talking in complete sentences. Her labs and examination were reassuring and she was discharged in good condition. Physical Exam Vital Signs: Temp Pulse Resp BP Pulse Ox 98.3 F 90 18 124/76 92 04/23/18 13:12 04/23/18 13:12 04/23/18 13:12 04/23/18 13:12 04/23/18 13:12 Intake & Output 04/22/18 04/23/18 04/24/18 06:59 06:59 06:59 Intake Total 918 Output Total 3 Balance 915 Weight 90.1 kg 90.2 kg General appearance: PRESENT: no acute distress, cooperative, obese Respiratory exam: PRESENT: clear to auscultation [place], symmetrical, unlabored. ABSENT: accessory muscle use, crackles, prolonged expiratory phas, retraction, rhonchi, tachypnea, wheezes Cardiovascular exam: PRESENT: RRR, +S1, +S2 Pulses: PRESENT: normal carotid pulses Vascular exam: PRESENT: normal capillary refill GI/Abdominal exam: PRESENT: normal bowel sounds, soft. ABSENT: distended, guarding, rebound, tenderness Extremities exam: ABSENT: clubbing, pedal edema Musculoskeletal exam: PRESENT: ambulatory, normal inspection. ABSENT: deformity Neurological exam: PRESENT: alert, awake, oriented to person, oriented to place, oriented to time, oriented to situation, normal gait Psychiatric exam: PRESENT: anxious Skin exam: PRESENT: dry, warm Results Laboratory Results: 04/23/18 04:37 04/23/18 04:37 04/23/18 04/23/18 04/23/18 04:37 04:37 04:37 WBC 15.6 H RBC 4.42 Hgb 12.5 Hct 36.9 MCV 84 MCH 28.2 MCHC 33.8 RDW 14.9 H Plt Count 252 Seg Neutrophils % 90.2 H Lymphocytes % 7.6 L Monocytes % 2.0 L Eosinophils % 0.0 Basophils % 0.2 Absolute Neutrophils 14.1 H Absolute Lymphocytes 1.2 Absolute Monocytes 0.3 Absolute Eosinophils 0.0 Absolute Basophils 0.0 Sodium 141.2 Potassium 3.7 Chloride 99 Carbon Dioxide 33 H Anion Gap 9 BUN 12 Creatinine 0.56 Est GFR ( Amer) > 60 Est GFR (Non-Af Amer) > 60 Glucose 164 H Calcium 9.5 Magnesium 2.2 Total Bilirubin 0.4 AST 33 ALT 28 Alkaline Phosphatase 79 Total Protein 6.9 Albumin 3.9 Triglycerides 122 Cholesterol 189.58 LDL Cholesterol Direct 145 H VLDL Cholesterol 24.0 HDL Cholesterol 36 L TSH 0.48 Free T4 1.15 Free T3 pg/mL 2.50 L Impressions: Chest X-Ray 04/21/18 23:25 IMPRESSION: No significant change compared to the prior exam. Grossly stable bilateral airspace opacities, concerning for pneumonia copyright 2011 [employer]- All Rights Reserved Chest CT 04/22/18 00:00 IMPRESSION: 1. Extensive patchy ground-glass infiltrates in both lungs. May suggest an atypical infectious process. 2. Mild mediastinal adenopathy, likely reactive. 3. Fatty infiltration of the liver. Qualifiers - * PATIENT BEING DISCHARGED WITH ANY OF THE FOLLOWING DIAGNOSIS: No
== END 2018-04-23 13:49 | disposition home or self-care (01) | DRG 190 ==
LOC: ER 22:06 → EH 04-22 04:34 → 3N 04-22 06:51
PROVIDERS: ADMIT Emergency Medicine; ATTEND Emergency Medicine
PROC: 3E0F3GC Introduction of Other Therapeutic Substance into Respiratory Tract, Percutaneous Approach (ICD-10-PCS; principal; 2018-04-22)
PROC: HZ89ZZZ Medication Management for Substance Abuse Treatment, Other Replacement Medication (ICD-10-PCS; 2018-04-22)
PROC: 3E02340 Introduction of Influenza Vaccine into Muscle, Percutaneous Approach (ICD-10-PCS; 2018-04-22)
DX: J44.1 Chronic obstructive pulmonary disease with (acute) exacerbation (principal); J18.9 Pneumonia, unspecified organism; I10 Essential (primary) hypertension; G43.909 Migraine, unspecified, not intractable, without status migrainosus; E66.9 Obesity, unspecified; M19.90 Unspecified osteoarthritis, unspecified site; F32.9 Major depressive disorder, single episode, unspecified; F17.200 Nicotine dependence, unspecified, uncomplicated; F11.10 Opioid abuse, uncomplicated; J44.0 Chronic obstructive pulmonary disease with (acute) lower respiratory infection; Z85.3 Personal history of malignant neoplasm of breast; Z23 Encounter for immunization; Z82.49 Family history of ischemic heart disease and other diseases of the circulatory system; Z88.1 Allergy status to other antibiotic agents; Z88.3 Allergy status to other anti-infective agents; Z88.0 Allergy status to penicillin; Z88.8 Allergy status to other drugs, medicaments and biological substances; Z71.6 Tobacco abuse counseling; Z87.01 Personal history of pneumonia (recurrent)
CPT/HCPCS: 36415; 71045; 71250; 80053; 80061; 81001; 82962; 83036; 83735; 84439; 84443; 84481; 85025; 87040; 87804; 90686; 93005; 93010; 94640; 96374; 96375; 99285; J0571; J1644; J1815; J2920; J2930; J3490; J7620

== ENCOUNTER 2018-05-05 14:50 | Emergency (ER) | payer SELFPAY ==
[2018-05-05] MEDS ORDERED: IPRATROPIUM/ALBUTEROL 0.5-2.5 MG/3 ML AMPUL NEB ONE ×2 (15:20→18:44)
--- NOTE | 2018-05-05 15:20 | ER Document Report ---
ED Medical Screen (RME) - General Chief Complaint: Cough Stated Complaint: SHORTNESS OF BREATH Time Seen by Provider: 05/05/18 15:14 Mode of Arrival: Ambulatory Information source: Patient Notes: 52-year-old female with COPD, migraine headaches, prescription drug abuse currently on subcu contacts who is allergic to Narcan presents with complaint of cough and fever. Patient has had a recent admission for pneumonia. She has had 2 courses of antibiotics over the last several weeks. Patient still continues to smoke. I have greeted and performed a rapid initial assessment of this patient. A comprehensive ED assessment and evaluation of the patient, analysis of test results and completion of medical decision making process we will be contacted by additional ED providers. PHYSICAL EXAMINATION: Vital signs reviewed GENERAL: Well-appearing, well-nourished and in no acute distress. LUNGS: Coarse breath sounds in all lung jefferson Musculoskeletal: Normal range of motion NEUROLOGICAL: Normal speech, normal gait. PSYCH: Normal mood, normal affect. SKIN: Warm, Dry, normal turgor, no rashes or lesions noted. TRAVEL OUTSIDE OF THE [place] IN LAST 30 DAYS: No - HPI Onset: Other Quality of pain: Achy Severity: Mild Associated Symptoms: Cough (productive), Fever, Shortness of breath Exacerbated by: Coughing Relieved by: Denies Similar symptoms previously: Yes Recently seen / treated by doctor: Yes - Related Data Smoking: Cigarettes Frequency of alcohol use: None Drug Abuse: None Allergies/Adverse Reactions: beeswax [Beeswax] Allergy (Verified 05/05/18 15:11) ceftriaxone [From Rocephin] Allergy (Verified 05/05/18 15:11) erythromycin base [Erythromycin Base] Allergy (Verified 05/05/18 15:11) naloxone Allergy (Verified 05/05/18 15:11) Anaphylaxis Penicillins Allergy (Verified 05/05/18 15:11) Past Medical History - Social History Frequency of alcohol use: None Drug Abuse: None - Past Medical History Cardiac Medical History: Reports: Hx Hypertension Denies: Hx Congestive Heart Failure, Hx Coronary Artery Disease, Hx DVT, Hx Heart Attack, Hx Hypercholesterolemia, Hx Pulmonary Embolism Pulmonary Medical History: Reports: Hx Asthma, Hx Bronchitis, Hx COPD, Hx Pneumonia Neurological Medical History: Reports: Hx Migraine. Denies: Hx Seizures Endocrine Medical History: Denies: Hx Diabetes Mellitus Type 1, Hx Diabetes Mellitus Type 2, Hx Hyperthyroidism, Hx Hypothyroidism Renal/ Medical History: Denies: Hx Peritoneal Dialysis Malignancy Medical History: Reports: Hx Breast Cancer - Bilateral GI Medical History: Denies: Hx Cirrhosis, Hx Hepatitis Musculoskeltal Medical History: Reports Hx Arthritis - Degenerative disc disease, Denies Hx Gout, Reports Hx Musculoskeletal Deformity, Reports Hx Musculoskeletal Trauma - Right MCL right rotator cuff Skin Medical History: Denies Hx Eczema, Denies Hx Psoriasis Psychiatric Medical History: Reports: Hx Depression Infectious Medical History: Denies: Hx Hepatitis Past Surgical History: Reports: Hx Breast Surgery - bilateral, Hx Section - 3, Hx Orthopedic Surgery - Right knee MCL right shoulder rotator cuff - Immunizations Immunizations up to date: Yes Hx Diphtheria, Pertussis, Tetanus Vaccination: Yes History of Influenza Vaccine for 11/2016 - 04/2017 Season: No Physical Exam - Vital signs Vitals: Temp Pulse Resp BP Pulse Ox 99.7 F 87 16 124/83 93 05/05/18 14:56 05/05/18 14:56 05/05/18 14:56 05/05/18 14:56 05/05/18 14:56 Course - Vital Signs Vital signs: Temp Pulse Resp BP Pulse Ox 99.7 F 87 16 124/83 93 05/05/18 14:56 05/05/18 14:56 05/05/18 14:56 05/05/18 14:56 05/05/18 14:56
[2018-05-05 16:08] LABS: ABSOLUTE BASOPHILS # (AUTO) 0.1 10^3/uL (0.0-0.2); ABSOLUTE EOSINOPHILS # (AUTO) 0.7 10^3/uL (0.0-0.6); ABSOLUTE LYMPHOCYTES (AUTO) 3.7 10^3/uL (0.5-4.7); ABSOLUTE MONOCYTES (AUTO) 0.5 10^3/uL (0.1-1.4); ABSOLUTE NEUT (AUTO) 5.9 10^3/uL (1.7-8.2); BASOPHILS % (AUTO) 0.7 % (0-2); EOSINOPHILS % (AUTO) 6.1 % (0-6); HEMATOCRIT 39.7 % (36.0-47.0); HEMOGLOBIN 13.2 g/dL (12.0-15.5); MEAN CORPUSCULAR HEMOGLOBIN 28.1 pg (27.0-33.4); MEAN CORPUSCULAR HGB CONC 33.2 g/dL (32.0-36.0); MEAN CORPUSCULAR VOLUME 85 fl (80-97); MONOCYTES % (AUTO) 4.8 % (3-13); PLATELET COUNT 308 10^3/uL (150-450); SEGMENTED NEUTROPHILS % (AUTO) 54.4 % (42-78); TOTAL CELLS COUNTED % (AUTO) 100 %; WHITE BLOOD COUNT 10.9 10^3/uL (4.0-10.5)
[2018-05-05 16:10] LABS: VENOUS BLOOD BASE EXCESS 4.8 mmol/L; VENOUS BLOOD HCO3 30.4 mmol/L (20-32); VENOUS BLOOD PCO2 49.2 mmHg (35-63); VENOUS BLOOD PH 7.41 (7.30-7.42)
[2018-05-05 16:29] LABS: ANION GAP 8 (5-19); BLOOD UREA NITROGEN 5 mg/dL (7-20); CARBON DIOXIDE 31 mmol/L (22-30); CHLORIDE 98 mmol/L (98-107); GLUCOSE 88 mg/dL (75-110); POTASSIUM 3.8 mmol/L (3.6-5.0); SODIUM 137.3 mmol/L (137-145)
--- NOTE | 2018-05-05 16:41 | RADIOLOGY REPORT (SQ) ---
EXAM DESCRIPTION: CHEST 2 VIEWS COMPLETED DATE/TIME: 05/05/2018 4:15 pm REASON FOR STUDY: cough fever COMPARISON: 04/22/2018 and 04/16/2018. EXAM PARAMETERS: NUMBER OF VIEWS: two views TECHNIQUE: Digital Frontal and Lateral radiographic views of the chest acquired. RADIATION DOSE: NA LIMITATIONS: none FINDINGS: LUNGS AND PLEURA: Faint bilateral airspace disease, unchanged. No focal infiltrates, mass es or pneumothorax. No pleural effusion. MEDIASTINUM AND HILAR STRUCTURES: No masses or contour abnormalities. HEART AND VASCULAR STRUCTURES: Heart normal size. No evidence for failure. BONES: No acute findings. Degenerative changes in the spine with scoliosis. HARDWARE: None in the chest. OTHER: No other significant finding. IMPRESSION: NO CHANGE IN APPEARANCE OF THE CHEST. FAINT BILATERAL AIRSPACE DISEASE UNCHANGED WITH N O FOCAL INFILTRATES. TECHNICAL DOCUMENTATION: JOB ID: [id number] [employer]- All Rights Reserved Reading location - IP/workstation name: [email or web address]
[2018-05-05] MEDS ORDERED: NORMAL SALINE 1000 ML 1,000 ML IV ONE ×2 (18:55→21:01)
[2018-05-05 19:35] LABS: INTERNATIONAL RATION (INR) 0.88; PROTHROMBIN TIME 12.4 SEC (11.4-15.4)
[2018-05-05] MEDS ORDERED: AZTREONAM INJ 1 GM VIAL IV ONE (20:16)
[2018-05-05 20:29] LABS: ALANINE AMINOTRANSFERASE 22 U/L (9-52); ALBUMIN 3.8 g/dL (3.5-5.0); ALKALINE PHOSPHATASE 73 U/L (38-126); ASPARTATE AMINO TRANSFERASE 22 U/L (14-36); BILIRUBIN,DIRECT 0.2 mg/dL (0.0-0.4); BILIRUBIN,TOTAL 0.5 mg/dL (0.2-1.3); TOTAL PROTEIN 6.3 g/dL (6.3-8.2)
[2018-05-05] MEDS ORDERED: METHYLPREDNISOLONE INJ 125 MG/2 ML SDV IV ONE (21:01)
--- NOTE | 2018-05-05 21:07 | ER Document Report ---
Addendum entered and electronically signed by MOSES ALANIZ NP 05/06/18 08:38: Course - Vital Signs Vital signs: Temp Pulse Resp BP Pulse Ox 99.1 F 79 19 138/68 H 95 05/05/18 18:46 05/05/18 18:46 05/05/18 22:00 05/05/18 22:00 05/05/18 22:00 - Laboratory Result Diagrams: 05/05/18 15:44 05/05/18 15:44 Laboratory results interpreted by me: 05/05/18 05/05/18 15:44 15:44 WBC 10.9 H RDW 16.0 H Eosinophils % 6.1 H Absolute Eosinophils 0.7 H Carbon Dioxide 31 H BUN 5 L - EKG Interpretation by Me EKG shows normal: Sinus rhythm Rate: Normal Additional EKG results interpreted by me: 05/06/18 08:38 QTC 441, no ST elevation or inversion. Original Note: ED Respiratory Problem - General Mode of Arrival: Ambulatory Information source: Patient TRAVEL OUTSIDE OF THE [place] IN LAST 30 DAYS: No - HPI Patient complains to provider of: Cough, Short of breath Onset: Other - Cough for several months Duration: Worse/persistent Quality of pain: Achy Pain Level: 3 Context: Hx COPD Cough: Productive Sputum color: Clear EMS treatments: Bronchodilators Associated symptoms: Chest pain/discomfort, Cough, Short of breath, Wheezing Similar symptoms previously: Yes Recently seen / treated by doctor: Yes <MOSES ALANIZ - Last Filed: 05/05/18 21:14> <AMADO CAROLINA - Last Filed: 05/05/18 22:24> - General Chief Complaint: Cough Stated Complaint: SHORTNESS OF BREATH Time Seen by Provider: 05/05/18 15:14 Primary Care Provider: [facility] [Provider Group] - Follow up as needed Notes: Patient presents with cough since January of last year. Patient reports that she was just discharged from the hospital at the end of last month with doxycycline. Patient states that she finished her antibiotics about 5 days ago and finished the steroids about 4 days ago. Patient states 3 days ago she started to develop fever. Patient reports that she had a fever of 1015 today. Patient continues with productive cough and wheezing. Patient denies any known history of COPD although does report a long history of smoking. Patient states she quit smoking last week. Patient complains of chest pain with cough only. (MOSES ALANIZ) - Related Data Allergies/Adverse Reactions: beeswax [Beeswax] Allergy (Verified 05/05/18 15:11) ceftriaxone [From Rocephin] Allergy (Verified 05/05/18 15:11) erythromycin base [Erythromycin Base] Allergy (Verified 05/05/18 15:11) naloxone Allergy (Verified 05/05/18 15:11) Anaphylaxis Penicillins Allergy (Verified 05/05/18 15:11) Past Medical History - General Information source: Patient - Social History Smoking Status: Former Smoker Frequency of alcohol use: None Drug Abuse: None Occupation: none Family History: Hypertension Patient has suicidal ideation: No Patient has homicidal ideation: No - Past Medical History Cardiac Medical History: Reports: Hx Hypertension Denies: Hx Congestive Heart Failure, Hx Coronary Artery Disease, Hx DVT, Hx Heart Attack, Hx Hypercholesterolemia, Hx Pulmonary Embolism Pulmonary Medical History: Reports: Hx Asthma, Hx Bronchitis, Hx COPD, Hx Pneumonia Neurological Medical History: Reports: Hx Migraine. Denies: Hx Seizures Endocrine Medical History: Denies: Hx Diabetes Mellitus Type 1, Hx Diabetes Mellitus Type 2, Hx Hyperthyroidism, Hx Hypothyroidism Renal/ Medical History: Denies: Hx Peritoneal Dialysis Malignancy Medical History: Reports: Hx Breast Cancer - Bilateral GI Medical History: Denies: Hx Cirrhosis, Hx Hepatitis Musculoskeletal Medical History: Reports Hx Arthritis - Degenerative disc disease, Denies Hx Gout, Reports Hx Musculoskeletal Deformity, Reports Hx Musculoskeletal Trauma - Right MCL right rotator cuff Skin Medical History: Denies Hx Eczema, Denies Hx Psoriasis Psychiatric Medical History: Reports: Hx Depression Infectious Medical History: Denies: Hx Hepatitis Past Surgical History: Reports: Hx Breast Surgery - bilateral, Hx Section - 3, Hx Orthopedic Surgery - Right knee MCL right shoulder rotator cuff - Immunizations Immunizations up to date: Yes Hx Diphtheria, Pertussis, Tetanus Vaccination: Yes <MOSES ALANIZ - Last Filed: 05/05/18 21:14> Review of Systems - Review of Systems Constitutional: Fever, Recent illness - Only treated for pneumonia EENT: No symptoms reported Cardiovascular: Chest pain - With coughing Respiratory: Cough, Short of breath Gastrointestinal: No symptoms reported. denies: Nausea, Vomiting Genitourinary: No symptoms reported Female Genitourinary: No symptoms reported Musculoskeletal: No symptoms reported. denies: Back pain Skin: No symptoms reported Hematologic/Lymphatic: No symptoms reported Neurological/Psychological: No symptoms reported <MOSES ALANIZ - Last Filed: 05/05/18 21:14> Physical Exam - General General appearance: Appears well, Alert In distress: None - HEENT Head: Normocephalic, Atraumatic - Respiratory Respiratory status: No respiratory distress Chest status: Pain with cough Breath sounds: Productive cough, Rhonchi, Wheezing Chest palpation: Normal - Cardiovascular Rhythm: Regular Heart sounds: S1 appreciated, S2 appreciated Murmur: No - Abdominal Inspection: Normal Distension: No distension Bowel sounds: Normal - Back Back: Normal, Nontender. No: CVA tenderness - Extremities General upper extremity: Normal inspection, Normal ROM General lower extremity: Normal inspection, Normal ROM - Neurological Neuro grossly intact: Yes Cognition: Normal Aba Coma Scale Eye Opening: Spontaneous [place] Coma Scale Verbal: Oriented [place] Coma Scale Motor: Obeys Commands [place] Coma Scale Total: 15 - Psychological Associated symptoms: Normal affect, Normal mood - Skin Skin Temperature: Warm Skin Moisture: Dry Skin Color: Normal <MOSES ALANIZ - Last Filed: 05/05/18 21:14> - Vital signs Vitals: Temp Pulse Resp BP Pulse Ox 99.7 F 87 16 124/83 93 05/05/18 14:56 05/05/18 14:56 05/05/18 14:56 05/05/18 14:56 05/05/18 14:56 Course - Laboratory Result Diagrams: 05/05/18 15:44 05/05/18 15:44 - Diagnostic Test Radiology reviewed: Image reviewed, Reports reviewed <MOSES ALANIZ - Last Filed: 05/05/18 21:14> - Laboratory Result Diagrams: 05/05/18 15:44 05/05/18 15:44 <AMADO CAROLINA - Last Filed: 05/05/18 22:24> - Re-evaluation Re-evalutation: 05/05/18 18:45 Patient continues with rhonchi and wheezing. Additional breathing treatments ordered at this time. 05/05/18 19:45 Patient with hypotension, additional IV fluids ordered. Additional tests ordered as well to complete septic evaluation given patient's report of fever, minimally elevated white blood cell count as well as hypotension at this time. Consulted with Dr. Navarro guardiroseann patient presentation. 05/05/18 21:06 Bedside report and handoff given to Charles BESS. Patient continues with wheezing bilaterally. Additional nebulizer treatment ordered as well as steroids. Plan will be to hydrate patient, give her a dose of antibiotics here and await her urinalysis results. Pending stable vital signs and no deterioration of her condition patient will be discharged on Augmentin with treatment for COPD exacerbation. Patient's reaction to penicillins is only nausea. (MOSES ALANIZ) 05/05/18 22:24 Patient's urine shows no signs of infection, patient's vitals have remained stable, patient stable for discharge. (AMADO CAROLINA) - Vital Signs Vital signs: Temp Pulse Resp BP Pulse Ox 99.1 F 79 18 112/77 95 05/05/18 18:46 05/05/18 18:46 05/05/18 21:09 05/05/18 21:09 05/05/18 21:09 - Laboratory Laboratory results interpreted by me: 05/05/18 05/05/18 15:44 15:44 WBC 10.9 H RDW 16.0 H Eosinophils % 6.1 H Absolute Eosinophils 0.7 H Carbon Dioxide 31 H BUN 5 L Discharge <MOSES ALANIZ - Last Filed: 05/05/18 21:14> <AMADO CAROLINA - Last Filed: 05/05/18 22:24> - Discharge Clinical Impression: COPD exacerbation Condition: Stable Disposition: HOME, SELF-CARE Instructions: Augmentin ([facility]), Chronic Obstructive Lung Disease ([facility]), Inhaled Bronchodilators ([facility]), Steroid Medication Additional Instructions: Return immediately for any new or worsening symptoms Followup with your primary care provider, call tomorrow to make a followup appointment Continue your breathing treatments at home as prescribed Prescriptions: Albuterol Sulfate [Ventolin 0.083% Neb 2.5 mg/3 ml Ampul] 1 vial NEB Q4 PRN #30 vial PRN Reason: Amox Tr/Potassium Clavulanate [Augmentin 875-125 Tablet] 1 tab PO BID 10 Days tablet Ipratropium/Albuterol Sulfate [Combivent Respimat 4 gm Mdi] 1 puff IH Q6 #1 aer.w.adap Prednisone [Deltasone 20 mg Tablet] 3 tab PO DAILY 5 Days tablet Referrals: [facility] [Provider Group] - Follow up as needed
[2018-05-05] MEDS ORDERED: ALBUTEROL SULFATE 0.083% NEB 2.5 MG/3 ML AMPUL NEB ONE (21:20)
[2018-05-05 22:11] LABS: APPEARANCE,URINE CLEAR; BILIRUBIN,URINE NEGATIVE (NEGATIVE); COLOR,URINE STRAW; GLUCOSE, URINE NEGATIVE (NEGATIVE); KETONES,URINE NEGATIVE (NEGATIVE); LEUKOCYTE ESTERASE,URINE NEGATIVE (NEGATIVE); NITRITE,URINE NEGATIVE (NEGATIVE); PROTEIN,URINE NEGATIVE (NEGATIVE); URINE SPECIFIC GRAVITY 1.006; UROBILINOGEN,URINE NEGATIVE mg/dL (<2.0)
[2018-05-05 22:55] VITALS: BP 138/68
--- NOTE | 2018-05-06 07:14 | EKG REPORT ---
SEVERITY:- NORMAL ECG - SINUS RHYTHM : Confirmed by: Ventura Bowen MD 06-May-2018 07:13:20
== END 2018-05-05 23:05 | disposition home or self-care (01) ==
LOC: ER 14:50
DX: J44.1 Chronic obstructive pulmonary disease with (acute) exacerbation (principal); R05 Cough; R06.02 Shortness of breath; R07.9 Chest pain, unspecified; I95.9 Hypotension, unspecified; R50.9 Fever, unspecified; I10 Essential (primary) hypertension; Z87.891 Personal history of nicotine dependence; Z91.030 Bee allergy status; Z88.1 Allergy status to other antibiotic agents; Z88.0 Allergy status to penicillin; Z87.892 Personal history of anaphylaxis; Z88.8 Allergy status to other drugs, medicaments and biological substances; Z87.01 Personal history of pneumonia (recurrent); Z85.3 Personal history of malignant neoplasm of breast
CPT/HCPCS: 93005; 94640 ×2; 99285; 96361; 96375; 96365; 36415; 87040; 87086; 85025; 85610; 80076; 80048; 81001; 82803; 83605; 71046; 93010; J2930; J7030; J3490; J7620; 87088

== ENCOUNTER 2018-08-25 15:01 | Inpatient (IN) | payer SELFPAY ==
[2018-08-25] MEDS ORDERED: ASPIRIN 81 MG TABLET, CHEWABLE PO ONE (15:30)
--- NOTE | 2018-08-25 15:31 | ER Document Report ---
ED Medical Screen (RME) - General Chief Complaint: Chest Pain Stated Complaint: CHEST PAIN Time Seen by Provider: 08/25/18 15:29 Mode of Arrival: Wheelchair Information source: Patient Notes: Patient presents complaining of left-sided chest pain that started around 8:00 today. Patient reports nausea denies any vomiting. Patient does report cough but does have a history of COPD. I have greeted and performed a rapid initial assessment of this patient. A comprehensive ED assessment and evaluation of the patient, analysis of test results and completion of the medical decision making process will be conducted by additional ED providers. TRAVEL OUTSIDE OF THE [place] IN LAST 30 DAYS: No - Related Data Allergies/Adverse Reactions: beeswax [Beeswax] Allergy (Verified 08/25/18 15:04) ceftriaxone [From Rocephin] Allergy (Verified 08/25/18 15:04) erythromycin base [Erythromycin Base] Allergy (Verified 08/25/18 15:04) naloxone Allergy (Verified 08/25/18 15:04) Anaphylaxis Penicillins Allergy (Verified 08/25/18 15:04) Past Medical History - Past Medical History Cardiac Medical History: Reports: Hx Hypertension Denies: Hx Congestive Heart Failure, Hx Coronary Artery Disease, Hx DVT, Hx Heart Attack, Hx Hypercholesterolemia, Hx Pulmonary Embolism Pulmonary Medical History: Reports: Hx Asthma, Hx Bronchitis, Hx COPD, Hx Pneumonia Neurological Medical History: Reports: Hx Migraine. Denies: Hx Seizures Endocrine Medical History: Denies: Hx Diabetes Mellitus Type 1, Hx Diabetes Mellitus Type 2, Hx Hyperthyroidism, Hx Hypothyroidism Renal/ Medical History: Denies: Hx Peritoneal Dialysis Malignancy Medical History: Reports: Hx Breast Cancer - Bilateral GI Medical History: Denies: Hx Cirrhosis, Hx Hepatitis Musculoskeltal Medical History: Reports Hx Arthritis - Degenerative disc disease, Denies Hx Gout, Reports Hx Musculoskeletal Deformity, Reports Hx Mus culoskeletal Trauma - Right MCL right rotator cuff Skin Medical History: Denies Hx Eczema, Denies Hx Psoriasis Psychiatric Medical History: Reports: Hx Depression Infectious Medical History: Denies: Hx Hepatitis Past Surgical History: Reports: Hx Breast Surgery - bilateral, Hx Section - 3, Hx Orthopedic Surgery - Right knee MCL right shoulder rotator cuff - Immunizations Immunizations up to date: Yes Hx Diphtheria, Pertussis, Tetanus Vaccination: Yes History of Influenza Vaccine for 11/2016 - 04/2017 Season: No Physical Exam - Vital signs Vitals: Temp Pulse Resp BP Pulse Ox 98.9 F 69 16 91/52 L 100 08/25/18 15:21 08/25/18 15:21 08/25/18 15:21 08/25/18 15:21 08/25/18 15:21 - Respiratory Respiratory status: No respiratory distress Chest status: Tender Breath sounds: Nonproductive cough Course - Vital Signs Vital signs: Temp Pulse Resp BP Pulse Ox 98.9 F 69 16 91/52 L 100 08/25/18 15:21 08/25/18 15:21 08/25/18 15:21 08/25/18 15:21 08/25/18 15:21
[2018-08-25] MEDS ORDERED: NORMAL SALINE 1000 ML 1,000 ML IV ONE ×2 (15:37→22:24)
--- NOTE | 2018-08-25 16:00 | RADIOLOGY REPORT (SQ) ---
EXAM DESCRIPTION: CHEST 2 VIEWS COMPLETED DATE/TIME: 08/25/2018 3:49 pm REASON FOR STUDY: cp COMPARISON: 05/05/2018 EXAM PARAMETERS: NUMBER OF VIEWS: two views TECHNIQUE: Digital Frontal and Lateral radiographic views of the chest acquired. RADIATION DOSE: NA LIMITATIONS: none FINDINGS: LUNGS AND PLEURA: No opacities, masses or pneumothorax. No pleural effusion. MEDIASTINUM AND HILAR STRUCTURES: No masses or contour abnormalities. HEART AND VASCULAR STRUCTURES: Heart normal size. No evidence for failure. BONES: No acute findings. HARDWARE: None in the chest. OTHER: No other significant finding. IMPRESSION: No acute abnormality of the lungs. No focal airspace opacity. TECHNICAL DOCUMENTATION: JOB ID: [id number] [employer]- All Rights Reserved Reading location - IP/workstation name: [email or web address]
[2018-08-25 16:06] LABS: ABSOLUTE BASOPHILS # (AUTO) 0.1 10^3/uL (0.0-0.2); ABSOLUTE EOSINOPHILS # (AUTO) 0.4 10^3/uL (0.0-0.6); ABSOLUTE LYMPHOCYTES (AUTO) 2.9 10^3/uL (0.5-4.7); ABSOLUTE MONOCYTES (AUTO) 0.5 10^3/uL (0.1-1.4); ABSOLUTE NEUT (AUTO) 4.4 10^3/uL (1.7-8.2); BASOPHILS % (AUTO) 1.4 % (0-2); EOSINOPHILS % (AUTO) 4.3 % (0-6); HEMATOCRIT 37.7 % (36.0-47.0); HEMOGLOBIN 12.6 g/dL (12.0-15.5); LYMPHOCYTES % (AUTO) 35.2 % (13-45); MEAN CORPUSCULAR HEMOGLOBIN 28.1 pg (27.0-33.4); MEAN CORPUSCULAR HGB CONC 33.4 g/dL (32.0-36.0); MEAN CORPUSCULAR VOLUME 84 fl (80-97); PLATELET COUNT 232 10^3/uL (150-450); RED BLOOD COUNT 4.48 10^6/uL (3.72-5.28); RED CELL DISTRIBUTION WIDTH 15.6 % (11.5-14.0); SEGMENTED NEUTROPHILS % (AUTO) 53.1 % (42-78); TOTAL CELLS COUNTED % (AUTO) 100 %; WHITE BLOOD COUNT 8.3 10^3/uL (4.0-10.5)
[2018-08-25 16:14] LABS: INTERNATIONAL RATION (INR) 0.93; PROTHROMBIN TIME 12.4 SEC (11.4-15.4)
[2018-08-25 16:27] LABS: ALANINE AMINOTRANSFERASE 31 U/L (9-52); ALBUMIN 4.2 g/dL (3.5-5.0); ALKALINE PHOSPHATASE 60 U/L (38-126); ANION GAP 6 (5-19); ASPARTATE AMINO TRANSFERASE 32 U/L (14-36); BILIRUBIN,DIRECT 0.3 mg/dL (0.0-0.4); BILIRUBIN,TOTAL 0.6 mg/dL (0.2-1.3); BLOOD UREA NITROGEN 4 mg/dL (7-20); CARBON DIOXIDE 35 mmol/L (22-30); CHLORIDE 95 mmol/L (98-107); CREATINE KINASE 90 U/L (30-135); GLUCOSE 107 mg/dL (75-110); POTASSIUM 3.2 mmol/L (3.6-5.0); SODIUM 136.1 mmol/L (137-145); TOTAL PROTEIN 7.2 g/dL (6.3-8.2)
[2018-08-25 16:38] LABS: CREATINE KINASE MB 0.87 ng/mL (<4.55)
[2018-08-25 16:41] LABS: TROPONIN I < 0.012 ng/mL
[2018-08-25] MEDS ORDERED: POTASSIUM CHLORIDE 10 MEQ CAPSULE.ER PO ONE (16:50)
[2018-08-25] MEDS ORDERED: IPRATROPIUM/ALBUTEROL 0.5-2.5 MG/3 ML AMPUL NEB ONE (21:23)
--- NOTE | 2018-08-25 22:09 | ER Document Report ---
ED General - General Chief Complaint: Chest Pain Stated Complaint: CHEST PAIN Time Seen by Provider: 08/25/18 15:29 Mode of Arrival: Wheelchair Notes: Patient is a 52-year-old female that presents to the emergency department for chief complaint of left-sided chest pain. She states the pain seems to be worse with a deep breath, started around 8 AM and has not improved, is been constant in nature. She has been having some degree of a cough and is short of breath, she does have underlying COPD. She is a current smoker as well. She denies history of coronary disease, is not sure she is had a stress test in the past. Denies prior history of DVT or PE, and no recent travel or leg swelling. She currently rates her pain as a 4 out of 10 in the left side of the chest, again worse with taking a deep breath. Describes it more of a sharp pain in nature Past Medical History: Hypertension, migraines, COPD Past Surgical History: x3 Social History: Admits to smoking cigarettes, denies alcohol or illicit drug use. Family History: Reviewed and noncontributory for presenting illness Allergies: Reviewed, see documented allergy list. REVIEW OF SYSTEMS: Other than noted above, the 12 point review of systems was reviewed with the patient and were negative, all pertinent findings are included in the HPI. PHYSICAL EXAMINATION: Vital signs reviewed, nursing noted reviewed. GENERAL: Patient appears older than stated age, in no acute distress HEAD: Atraumatic, normocephalic. EYES: Eyes appear normal, extraocular movements intact, sclera anicteric, conjunctiva are normal. ENT: nares patent, oropharynx clear without exudates. Moist mucous membranes. NECK: Normal range of motion, supple without lymphadenopathy LUNGS: Bilateral wheezing noted throughout all lung jefferson, no chest wall tenderness, and no acute respiratory distress HEART: Regular rate and rhythm without murmurs ABDOMEN: Soft, nontender, normoactive bowel sounds. No rebound, guarding, or rigidity. No masses appreciated. EXTREMITIES: Nontender, good range of motion, no pitting or edema. NEUROLOGICAL: No focal neurological deficits. Moves all extremities spontaneously Motor and sensory grossly intact on exam. PSYCH: Normal mood, normal affect. SKIN: Warm, Dry, normal turgor, no rashes or lesions noted on exposed skin TRAVEL OUTSIDE OF THE [place] IN LAST 30 DAYS: No - Related Data Allergies/Adverse Reactions: beeswax [Beeswax] Allergy (Verified 08/25/18 15:04) ceftriaxone [From Rocephin] Allergy (Verified 08/25/18 15:04) erythromycin base [Erythromycin Base] Allergy (Verified 08/25/18 15:04) naloxone Allergy (Verified 08/25/18 15:04) Anaphylaxis Penicillins Allergy (Verified 08/25/18 15:04) Past Medical History - General Information source: Patient - Social History Smoking Status: Current Every Day Smoker Frequency of alcohol use: None Drug Abuse: None Family History: Hypertension Patient has suicidal ideation: No Patient has homicidal ideation: No - Past Medical History Cardiac Medical History: Reports: Hx Hypertension Denies: Hx Congestive Heart Failure, Hx Coronary Artery Disease, Hx DVT, Hx Heart Attack, Hx Hypercholesterolemia, Hx Pulmonary Embolism Pulmonary Medical History: Reports: Hx Asthma, Hx Bronchitis, Hx COPD, Hx Pneumonia Neurological Medical History: Reports: Hx Migraine. Denies: Hx Seizures Endocrine Medical History: Denies: Hx Diabetes Mellitus Type 1, Hx Diabetes Mellitus Type 2, Hx Hyperthyroidism, Hx Hypothyroidism Renal/ Medical History: Denies: Hx Peritoneal Dialysis Malignancy Medical History: Reports: Hx Breast Cancer - Bilateral GI Medical History: Denies: Hx Cirrhosis, Hx Hepatitis Musculoskeletal Medical History: Reports Hx Arthritis - Degenerative disc disease, Denies Hx Gout, Reports Hx Musculoskeletal Deformity, Reports Hx Musc uloskeletal Trauma - Right MCL right rotator cuff Skin Medical History: Denies Hx Eczema, Denies Hx Psoriasis Psychiatric Medical History: Reports: Hx Depression Infectious Medical History: Denies: Hx Hepatitis Past Surgical History: Reports: Hx Breast Surgery - bilateral, Hx Section - 3, Hx Cholecystectomy, Hx Orthopedic Surgery - Right knee MCL right shoulder rotator cuff - Immunizations Immunizations up to date: Yes Hx Diphtheria, Pertussis, Tetanus Vaccination: Yes Physical Exam - Vital signs Vitals: Temp Pulse Resp BP Pulse Ox 98.9 F 69 16 91/52 L 100 08/25/18 15:21 08/25/18 15:21 08/25/18 15:21 08/25/18 15:21 08/25/18 15:21 Course - Re-evaluation Re-evalutation: Patient seen and examined vital signs reviewed. Laboratory data and imaging were ordered as appropriate for the patient's presenting symptoms and complaint, with consideration of any critical or life threatening conditions that may be associated with their obtained history and exam as noted above. Patient was treated with IV fluid bolusing, given a total of 2 L, because she was found to be hypotensive upon my initial exam, her blood work had resulted from triage, and work-up for ACS was essentially negative, she had 2- troponins, her EKG was nonischemic, chest x-ray negative, I was worried because of her hypertension that this may be a pulmonary embolism, and therefore CT angiogram of the chest was ordered, this was negative for PE, but demonstrated possible atypical pneumonia versus cryptogenic organizing pneumonia, versus chronic lung disease, patient did not have a leukocytosis, did not have productive cough or fever, nor she tachycardic, therefore infectious etiology is less likely, more likely chronic lung disease. However due to the patient's hypotension, I looked back the patient's record she has been on frequent bursts of corticosteroids, for exacerbations of COPD, and and her blood work was noted to be mildly hyponatremic, and hypokalemia, and may be adrenal insufficient, therefore give the patient a dose of IV Solu-Cortef 100 mg, shortly after giving this the patient's blood pressure did improve The patient was re-evaluated and was improved Evaluation was most consistent with chest pain, adrenal insufficiency, hypotension Results were discussed with the patient at this point after careful consideration I feel that that patient should be admitted to the hospital. This was discussed with the patient that it is in the best interest for their care to be admitted for further evaluation and management. Patient agreed with this plan of care. A call was placed to the admitting physician, Dr. Benz who graciously accepted the patient onto their service. *Note is created using voice recognition software and may contain spelling, syntax or grammatical errors. Laboratory 08/25/18 08/25/18 08/25/18 15:50 15:50 15:50 WBC 8.3 RBC 4.48 Hgb 12.6 Hct 37.7 MCV 84 MCH 28.1 MCHC 33.4 RDW 15.6 H Plt Count 232 Seg Neutrophils % 53.1 Lymphocytes % 35.2 Monocytes % 6.0 Eosinophils % 4.3 Basophils % 1.4 Absolute Neutrophils 4.4 Absolute Lymphocytes 2.9 Absolute Monocytes 0.5 Absolute Eosinophils 0.4 Absolute Basophils 0.1 PT 12.4 INR 0.93 Sodium 136.1 L Potassium 3.2 L Chloride 95 L Carbon Dioxide 35 H Anion Gap 6 BUN 4 L Creatinine 0.60 Est GFR ( Amer) > 60 Est GFR (Non-Af Amer) > 60 Glucose 107 Calcium 9.0 Magnesium Total Bilirubin 0.6 Direct Bilirubin 0.3 Neonat Total Bilirubin Not Reportable Neonat Direct Bilirubin Not Reportable Neonat Indirect Bili Not Reportable AST 32 ALT 31 Alkaline Phosphatase 60 Creatine Kinase 90 CK-MB (CK-2) Troponin I Total Protein 7.2 Albumin 4.2 TSH Free T4 08/25/18 08/25/18 08/25/18 15:50 15:50 15:50 WBC RBC Hgb Hct MCV MCH MCHC RDW Plt Count Seg Neutrophils % Lymphocytes % Monocytes % Eosinophils % Basophils % Absolute Neutrophils Absolute Lymphocytes Absolute Monocytes Absolute Eosinophils Absolute Basophils PT INR Sodium Potassium Chloride Carbon Dioxide Anion Gap BUN Creatinine Est GFR ( Amer) Est GFR (Non-Af Amer) Glucose Calcium Magnesium 2.0 Total Bilirubin Direct Bilirubin Neonat Total Bilirubin Neonat Direct Bilirubin Neonat Indirect Bili AST ALT Alkaline Phosphatase Creatine Kinase CK-MB (CK-2) 0.87 Troponin I < 0.012 Total Protein Albumin TSH 1.87 Free T4 0.96 08/25/18 20:28 WBC RBC Hgb Hct MCV MCH MCHC RDW Plt Count Seg Neutrophils % Lymphocytes % Monocytes % Eosinophils % Basophils % Absolute Neutrophils Absolute Lymphocytes Absolute Monocytes Absolute Eosinophils Absolute Basophils PT INR Sodium Potassium Chloride Carbon Dioxide Anion Gap BUN Creatinine Est GFR ( Amer) Est GFR (Non-Af Amer) Glucose Calcium Magnesium Total Bilirubin Direct Bilirubin Neonat Total Bilirubin Neonat Direct Bilirubin Neonat Indirect Bili AST ALT Alkaline Phosphatase Creatine Kinase CK-MB (CK-2) Troponin I < 0.012 Total Protein Albumin TSH Free T4 Chest X-Ray 08/25/18 15:30 IMPRESSION: No acute abnormality of the lungs. No focal airspace opacity. - Vital Signs Vital signs: Temp Pulse Resp BP Pulse Ox 98.9 F 65 20 103/62 96 08/26/18 03:06 08/26/18 03:06 08/26/18 03:06 08/26/18 03:06 08/26/18 03:06 - Laboratory Result Diagrams: 08/25/18 15:50 08/25/18 15:50 Laboratory results interpreted by me: 08/25/18 08/25/18 15:50 15:50 RDW 15.6 H Sodium 136.1 L Potassium 3.2 L Chloride 95 L Carbon Dioxide 35 H BUN 4 L - EKG Interpretation by Me Additional EKG results interpreted by me: EKG demonstrates sinus rhythm with a ventricular rate of 66 bpm, normal axis, QTC 457 ms, there is T wave inversion in lead V2 and V3, however when compared t o prior EKG from 05/05/2017, there is no significant change. Discharge - Discharge Clinical Impression: Adrenal insufficiency, Hyponatremia, Hypokalemia Hypotension Qualifiers: Hypotension type: unspecified hypotension type Qualified Code(s): I95.9 - Hypot ension, unspecified Chest pain Qualifiers: Chest pain type: chest pain on breathing Qualified Code(s): R07.1 - Chest pain on breathing Condition: Stable Disposition: ADMITTED INPATIENT Admitting Provider: Demar (Hospitalist) Unit Admitted: Telemetry
--- NOTE | 2018-08-25 23:30 | RADIOLOGY REPORT (SQ) ---
EXAM DESCRIPTION: CT CHEST ANGIOGRAPHY WITHOUT THEN WITH IV CONTRAST COMPLETED DATE/TME: 08/25/2018 22:25 CLINICAL HISTORY: 52 years Female, chest pain, shortness of breath, pleuritic Comparison: CR, same day, 11/22/16. Technique: IV contrast. Coronal and sagittal reformat. 3d reconstruction. This exam was performed according to our departmental dose-optimization program, which includes automated exposure control, adjustment of the mA and/or kV according to patient size and/or use of iterative reconstruction technique.[facility]: Dose Right [facility]: CareDose [facility]: Dose Right [facility]: Teradose 4D [facility]: Nanovi LIMITATIONS: None Findings: Moderate mosaic groundglass opacity, small patchy and nodular opacity of the right upper lobe. Small paraseptal emphysema. No pulmonary embolus. No right ventricular strain. Hepatic steatosis. Cholecystectomy. Atherosclerotic vascular disease. Degenerative disc disease. Mammary prostheses. Inferior neck, axillae, mediastinum, airway, lymphatics, heart, vasculature, upper abdomen, and musculoskeleton appear otherwise unremarkable. Impression: 1. Mild-moderate mixed lung opacities include small patchy/nodular opacity of the right upper lobe and diffuse moderate mosaic groundglass airspace opacities. Differential diagnosis includes atypical pneumonitis, obliterative small airways disease, occlusive vascular disease.and chronic interstitial lung disease. Recommend CR/CT surveillance including at 7-12 weeks following initiation of any clinically warranted therapy. 2. No pulmonary embolus.
[2018-08-25] MEDS ORDERED: RINGERS SOLUTION,LACTATED 1,000 ML IV ONE (23:34)
[2018-08-25] MEDS ORDERED: LEVOFLOXACIN 750 MG/D5W RTU 750 MG/150 ML RTUPB IV ONE (23:37)
[2018-08-25] MEDS ORDERED: HYDROCORTISONE SOD SUCCINATE INJ/PF 100 MG/2 ML SDV IV ONE (23:39)
[2018-08-26 00:28] LABS: APPEARANCE,URINE CLEAR; BILIRUBIN,URINE NEGATIVE (NEGATIVE); COLOR,URINE YELLOW; GLUCOSE, URINE NEGATIVE (NEGATIVE); KETONES,URINE NEGATIVE (NEGATIVE); LEUKOCYTE ESTERASE,URINE NEGATIVE (NEGATIVE); NITRITE,URINE NEGATIVE (NEGATIVE); PROTEIN,URINE NEGATIVE (NEGATIVE); UROBILINOGEN,URINE NEGATIVE mg/dL (<2.0)
--- NOTE | 2018-08-26 00:32 | EKG REPORT ---
SEVERITY:- ABNORMAL ECG - SINUS RHYTHM NONSPECIFIC T ABNORMALITIES, ANTERIOR LEADS : Confirmed by: Magaly Pierce 26-Aug-2018 00:32:06
[2018-08-26] MEDS ORDERED: ONDANSETRON 4 MG TAB.RAPDIS PO PRN (00:36)
[2018-08-26] MEDS ORDERED: MAG HYDROX/AL HYDROX/SIMETH SUSP 30 ML UDCUP PO PRN (00:36)
[2018-08-26] MEDS ORDERED: ONDANSETRON HCL INJ/PF 4 MG/2 ML SDV IV PRN (00:36)
[2018-08-26] MEDS ORDERED: MAGNESIUM HYDROXIDE SUSP 30 ML UDCUP PO PRN (00:36)
[2018-08-26] MEDS ORDERED: LEVALBUTEROL HCL NEB 0.63 MG/3 ML AMPUL NEB PRN (00:50)
[2018-08-26] MEDS ORDERED: NICOTINE 21 MG/24 HR PATCH.TD24 TD PRN (00:50)
[2018-08-26] MEDS ORDERED: ACETAMINOPHEN 325 MG TABLET PO PRN (00:50)
[2018-08-26] MEDS ORDERED: IBUPROFEN 800 MG TABLET PO PRN (00:50)
[2018-08-26 01:10] LABS: FREE T4 (FREE THYROXINE) 0.96 ng/dL (0.78-2.19)
[2018-08-26 01:24] LABS: THYROID STIMULATING HORMONE 1.87 uIU/mL (0.47-4.68)
[2018-08-26 02:04] LABS: CREATINE KINASE MB 0.81 ng/mL (<4.55)
[2018-08-26 02:09] LABS: TROPONIN I < 0.012 ng/mL
[2018-08-26] MEDS: RINGERS SOLUTION,LACTATED 1,000 ML IV PRN ×3 (02:58→15:58)
--- NOTE | 2018-08-26 04:11 | ADVANCED CARE ---
- Diagnosis (1) Adrenal insufficiency Diagnosis Current: Yes (2) Hypotension (arterial) Diagnosis Current: Yes (3) Chest pain Diagnosis Current: Yes (4) Hypokalemia Diagnosis Current: Yes (5) Tobacco use disorder, severe, dependence Diagnosis Current: Yes Attendance: The patient and myself Resuscitation Status: Full Code Discussion: After short discussion the patient wishes to be maintained as a full code for her resuscitation status throughout her hospital course in the event of a cardiac or respiratory arrest. Additionally she has named Tamy Christian as her designated surrogate medical decision maker. Care Planning Goals: 1. Patient remain full CODE STATUS. 2. Tamy Christian will be the patient's designated surrogate medical decision maker. Document(s) Completed: The following information will be entered into the patient's permanent medical record as well as her current medical record and orders via EMR entry: 1. Patient remain full CODE STATUS. 2. Tamy Christian will be the patient's designated surrogate medical decision maker. Time Spent: 5 minutes
--- NOTE | 2018-08-26 04:18 | PDOC H&P ---
History of Present Illness Admission Date/PCP: 08/25/18 23:53 No local PCP Patient complains of: Chest pain History of Present Illness: ALLYSON OVERTON is a 52 year old female who presented to the emergency room with acute chest pain. Patient admits that she had a sudden onset of a constant, severe, sharp stabbing pain in the left side of her chest and radiating to her left shoulder beginning at 8 AM this morning. The pain was worsened by taking a deep breath, coughing or moving her left arm/chest in certain positions. She reports an associated chronic nonproductive cough typical of her COPD. She denies prior similar symptoms and has not identified any additional aggravating or ameliorating factors for her chest pain. In the emergency room the patient was found to have negative cardiac enzymes and a EKG which revealed no evidence of myocardial ischemia or injury. Patient was noted to be hypotensive with a systolic blood pressure in the 80's which is unusual for her. Further evaluation showed a hyponatremia and a hypokalemia to be present and a CTA of the chest showed no evidence of pulmonary embolism but did reveal evidence of chronic interstitial pulmonary disease. Patient was subsequently admitted to the hospital for further evaluation and treatment. Past Medical History Cardiac Medical History: Reports: Hypertension Denies: Congestive Heart Failure, Coronary Artery Disease, DVT, Myocardial Infarction, Hyperlipidema, Pulmonary Embolism Pulmonary Medical History: Reports: Asthma, Bronchitis, Chronic Obstructive Pulmonary Disease (COPD), Pneumonia EENT Medical History: Denies: Cataracts, Ears - Hearing aids Neurological Medical History: Reports: Migraine Denies: Seizures Endocrine Medical History: Denies: Diabetes Mellitus Type 1, Diabetes Mellitus Type 2, Hyperthyroidism, Hypothyroidism Renal/ Medical History: Denies: Chronic Kidney Disease, Nephrolithiasis Malignancy Medical History: Reports: Breast Cancer - Bilateral GI Medical History: Denies: Cirrhosis, Hepatitis Musculoskeltal Medical History: Reports: Arthritis - Degenerative disc disease Denies: Gout Skin Medical History: Denies: Eczema, Psoriasis Psychiatric Medical History: Reports: Depression, Substance Abuse, Tobacco Dependency Denies: Alcohol Dependency Traumatic Medical History: Reports: None Hematology: Denies: Anemia, Bleeding Tendencies Infectious Medical History: Reports: None Past Surgical History Past Surgical History: Reports: Section - 3, Cholecystectomy, Orthopedic Surgery - Right knee MCL right shoulder rotator cuff Social History Information Source: Patient Lives with: Family Smoking Status: Current Every Day Smoker Frequency of Alcohol Use: None Hx Recreational Drug Use: No Drugs: None Hx Prescription Drug Abuse: Yes - Has been treated for opioid addiction - Advance Directive Resuscitation Status: Full Code Surrogate healthcare decision maker:: Tamy Christian Family History Family History: CAD, COPD, Hyperlipidemia, Hypertension. denies: DM, Malignancy Parental Family History Reviewed: Yes Children Family History Reviewed: No Sibling(s) Family History Reviewed.: Yes Medication/Allergy Home Medications: Buprenorphine HCl [Subutex 8 mg Sublingual Tablet] 8 mg PO TID 11/22/16 Trazodone HCl [Desyrel] 150 mg PO QHS 11/22/16 Cetirizine HCl [Zyrtec 10 mg Tablet] 10 mg PO DAILY 04/22/18 Fluoxetine HCl [Prozac 20 mg Capsule] 60 mg PO DAILY 04/22/18 Hydrochlorothiazide [Hydrodiuril 25 mg Tablet] 25 mg PO DAILYP PRN 04/22/18 Multivit/Folic Acid/Vit K1 [One-A-Day Women's 50 Plus Tab] 1 each PO DAILY 04/22/18 Doxycycline Hyclate [Vibramycin 100 mg Tablet] 100 mg PO BIDPCBS #10 tablet 04/23/18 Gabapentin [Neurontin 300 mg Capsule] 600 mg PO Q8 #180 capsule 04/23/18 Prednisone [Deltasone 20 mg Tablet] 40 mg PO DAILY #10 tablet 04/23/18 Albuterol Sulfate [Ventolin 0.083% Neb 2.5 mg/3 ml Ampul] 1 vial NEB Q4 PRN #30 vial 05/05/18 Amox Tr/Potassium Clavulanate [Augmentin 875-125 Tablet] 1 tab PO BID 10 Days tablet 05/05/18 Ipratropium/Albuterol Sulfate [Combivent Respimat 4 gm Mdi] 1 puff IH Q6 #1 aer.w.adap 05/05/18 Prednisone [Deltasone 20 mg Tablet] 3 tab PO DAILY 5 Days tablet 05/05/18 Allergies/Adverse Reactions: beeswax [Beeswax] Allergy (Verified 08/25/18 15:04) ceftriaxone [From Rocephin] Allergy (Verified 08/25/18 15:04) erythromycin base [Erythromycin Base] Allergy (Verified 08/25/18 15:04) naloxone Allergy (Verified 08/25/18 15:04) Anaphylaxis Penicillins Allergy (Verified 08/25/18 15:04) Review of Systems Constitutional: ABSENT: chills, fever(s) Eyes: PRESENT: other - Eye pain. ABSENT: visual disturbances Ears: ABSENT: hearing changes, other - Ear pain Nose, Mouth, and Throat: ABSENT: mouth pain, sore throat Cardiovascular: PRESENT: as per HPI, chest pain. ABSENT: dyspnea on exertion, edema, orthropnea, palpitations Respiratory: PRESENT: as per HPI, cough. ABSENT: dyspnea, hemoptysis, sputum Gastrointestinal: ABSENT: abdominal pain, constipation, diarrhea, nausea, vomiting Genitourinary: ABSENT: dysuria, hematuria Musculoskeletal: PRESENT: back pain - Chronic. ABSENT: joint swelling, muscle weakness Integumentary: ABSENT: pruritus, rash Neurological: ABSENT: confusion, convulsions, focal weakness, memory loss, syncope Psychiatric: ABSENT: anxiety, depression Endocrine: ABSENT: cold intolerance, heat intolerance Hematologic/Lymphatic: ABSENT: easy bleeding, easy bruising Physical Exam Vital Signs: Temp Pulse Resp BP Pulse Ox 98.3 F 74 12 83/63 L 94 08/25/18 19:43 08/25/18 19:43 08/25/18 23:12 08/25/18 23:12 08/25/18 23:12 Intake & Output 08/24/18 08/25/18 08/26/18 23:59 23:59 23:59 Intake Total 1000 Balance 1000 Weight 88.451 kg General appearance: PRESENT: no acute distress, cooperative, obese Head exam: PRESENT: atraumatic, normocephalic Eye exam: PRESENT: conjunctiva pink. ABSENT: conjunctival injection, scleral icterus Ear exam: PRESENT: normal external ear exam. ABSENT: bleeding, drainage Mouth exam: PRESENT: dry mucosa, neck supple Neck exam: ABSENT: JVD, thyromegaly, tracheal deviation Respiratory exam: PRESENT: decreased breath sounds - Mildly decreased breath sounds throughout all jefferson consistent with mild to moderate COPD, prolonged expiratory phas - Mildly prolonged expiratory phase throughout all jefferson, symmetrical, unlabored. ABSENT: wheezes Cardiovascular exam: PRESENT: RRR. ABSENT: clicks, gallop, rubs Pulses: PRESENT: normal radial pulses, normal dorsalis pedis pul Vascular exam: PRESENT: normal capillary refill. ABSENT: pallor GI/Abdominal exam: PRESENT: normal bowel sounds, soft Rectal exam: PRESENT: deferred Extremities exam: ABSENT: joint swelling, pedal edema, tenderness Musculoskeletal exam: PRESENT: full ROM, normal inspection Neurological exam: PRESENT: alert, oriented to person, oriented to place, oriented to time, oriented to situation, CN II-XII grossly intact. ABSENT: motor sensory deficit Psychiatric exam: PRESENT: appropriate affect, normal mood Skin exam: PRESENT: dry, intact, warm. ABSENT: jaundice, rash, urticaria Results Laboratory Results: 08/25/18 15:50 08/25/18 15:50 08/25/18 08/25/18 08/25/18 15:50 15:50 15:50 WBC 8.3 RBC 4.48 Hgb 12.6 Hct 37.7 MCV 84 MCH 28.1 MCHC 33.4 RDW 15.6 H Plt Count 232 Seg Neutrophils % 53.1 Lymphocytes % 35.2 Monocytes % 6.0 Eosinophils % 4.3 Basophils % 1.4 Absolute Neutrophils 4.4 Absolute Lymphocytes 2.9 Absolute Monocytes 0.5 Absolute Eosinophils 0.4 Absolute Basophils 0.1 Sodium 136.1 L Potassium 3.2 L Chloride 95 L Carbon Dioxide 35 H Anion Gap 6 BUN 4 L Creatinine 0.60 Est GFR ( Amer) > 60 Est GFR (Non-Af Amer) > 60 Glucose 107 Calcium 9.0 Magnesium 2.0 Total Bilirubin 0.6 AST 32 ALT 31 Alkaline Phosphatase 60 Total Protein 7.2 Albumin 4.2 08/25/18 08/25/18 08/25/18 15:50 15:50 20:28 Creatine Kinase 90 CK-MB (CK-2) 0.87 Troponin I < 0.012 < 0.012 Impressions: Chest X-Ray 08/25/18 15:30 IMPRESSION: No acute abnormality of the lungs. No focal airspace opacity. Assessment and Plan - Diagnosis (1) Chest pain Qualifiers: Chest pain type: chest pain on breathing Qualified Code(s): R07.1 - Chest pain on breathing; R07.81 - Pleurodynia Is this a current diagnosis for this admission?: Yes Plan: Serial cardiac enzymes and a repeat EKG will be performed. The pain it appears to be likely related to pleuritic causes and she will be treated with anti- inflammatory pain relief utilizing oral ibuprofen. (2) Adrenal insufficiency Is this a current diagnosis for this admission?: Yes Plan: With patient having no obvious cause of hypotension consideration for adrenal insufficiency must be given. Patient was started on Solu-Cortef therapy in the ER. She will be continued on Solu-Cortef and further evaluation will be unde rtaken throughout her hospital course. (3) Hypotension (arterial) Qualifiers: Hypotension type: unspecified hypotension type Qualified Code(s): I95.9 - Hypotension, unspecified Is this a current diagnosis for this admission?: Yes Plan: Patient's hypertension does not appear to be coming from any septic etiology but may well be due to volume depletion and/or adrenal insufficiency. She will be treated with IV fluids and her blood pressure be monitored closely throughout her hospital course. (4) Hypokalemia Is this a current diagnosis for this admission?: Yes Plan: Patient's potassium will be repleted with oral replacement therapy. A metabolic profile and magnesium level be monitored on a daily basis. (5) COPD (chronic obstructive pulmonary disease) Qualifiers: COPD type: unspecified COPD Qualified Code(s): J44.9 - Chronic obstructive pulmonary disease, unspecified Is this a current diagnosis for this admission?: Yes Plan: Patient will be treated with a normal pulmonary toilet for COPD. This will utilize nebulized Pulmicort, Xopenex and Atrovent. She will also receive supplemental oxygen if required. (6) Tobacco use disorder, severe, dependence Is this a current diagnosis for this admission?: Yes Plan: Smoking cessation is advised and counseled briefly. Patient will use a nicotine replacement patch as desired. - Time Time Spent with patient: 25-34 minutes Smoking Cessation Education: 3 to 10 minutes Medications reviewed and adjusted accordingly: Yes Anticipated discharge: Home - Inpatient Certification Based on my medical assessment, after consideration of the patient's comorbidities, presenting symptoms, or acuity I expect that the services needed warrant INPATIENT care.: Yes I certify that my determination is in accordance with my understanding of Medicare's requirements for reasonable and necessary INPATIENT services [42 CFR 412.3e].: Yes Medical Necessity: Need Close Monitoring Due to Risk of Patient Decompensation, Need For IV Fluids, Need For Continuous Telemetry Monitoring, Need for Pain Control, Risk of Complication if Not Cared For in Hospital
[2018-08-26] MEDS: HEPARIN SOD (PORCINE) 5,000 UNIT/ML 1 ML SYRINGE SUBCUT SCH ×2 (05:43→13:12)
[2018-08-26] MEDS ORDERED: HYDROCORTISONE SOD SUCCINATE INJ 500 MG/4 M VIAL IV SCH (06:00)
[2018-08-26] MEDS ORDERED: BUDESONIDE NEB 0.5 MG/2 ML AMPUL NEB SCH (08:00)
[2018-08-26 08:29] LABS: CREATINE KINASE MB 0.92 ng/mL (<4.55)
[2018-08-26 08:32] LABS: TROPONIN I < 0.012 ng/mL
[2018-08-26 09:18] LABS: BLOOD UREA NITROGEN 5 mg/dL (7-20); CALCIUM 8.2 mg/dL (8.4-10.2); GLUCOSE 110 mg/dL (75-110)
[2018-08-26] MEDS: DOCUSATE SODIUM 100 MG CAPSULE PO SCH ×2 (09:19→17:45)
[2018-08-26 09:23] LABS: CARBON DIOXIDE 31 mmol/L (22-30); CHLORIDE 104 mmol/L (98-107); SODIUM 140.1 mmol/L (137-145)
[2018-08-26] MEDS: IPRATROPIUM BROMIDE 0.02% NEB 0.5 MG/2.5 ML AMPUL NEB SCH ×2 (09:24→16:34)
[2018-08-26] MEDS: LEVALBUTEROL HCL NEB 1.25 MG/3 ML AMPUL NEB SCH ×2 (09:24→16:34)
[2018-08-26 09:28] LABS: ANION GAP 5 (5-19)
[2018-08-26] MEDS ORDERED: FAMOTIDINE 20 MG TABLET PO SCH (10:00)
[2018-08-26] MEDS ORDERED: HYDROCORTISONE SOD SUCCINATE INJ/PF 100 MG/2 ML SDV IV SCH (10:00)
[2018-08-26 14:46] LABS: CREATINE KINASE MB 0.83 ng/mL (<4.55)
[2018-08-26 14:49] LABS: TROPONIN I < 0.012 ng/mL
--- NOTE | 2018-08-26 14:54 | EKG REPORT ---
SEVERITY:- BORDERLINE ECG - SINUS RHYTHM BORDERLINE T ABNORMALITIES, DIFFUSE LEADS : Confirmed by: Magaly Pierce 26-Aug-2018 14:54:13
[2018-08-26 16:17] VITALS: BP 103/62
--- NOTE | 2018-08-26 18:38 | PDOC DISCHARGE SUMMARY ---
General - Admit/Disc Date/PCP Admission Date/Primary Care Provider: 08/25/18 23:53 Odilonne Discharge Date: 08/26/18 - Discharge Diagnosis (1) Hypotension Is this a current diagnosis for this admission?: Yes Summary: Resolved; manual blood pressure at time of discharge is 129/72. She is asymptomatic while ambulatory. Previously noted hypotensive episodes may have been related to the automatic blood pressure cuff as rechecked with manual consistently showed improved blood pressures. Patient was treated with IV fluids overnight. Random cortisol this morning is 4.54 (of note, her a.m. lab work was drawn close to 9 AM rather than 6 as had been anticipated). Patient is advised to change positions slowly. She is also encouraged to establish with a local primary care provider for further monitoring. (2) Adrenal insufficiency Is this a current diagnosis for this admission?: No Summary: Adrenal insufficiency is considered as a possible cause for her hypotension but is not confirmed. Patient is advised to establish with a goal primary care provider for further evaluation. (3) COPD (chronic obstructive pulmonary disease) Is this a current diagnosis for this admission?: Yes Summary: Stable without acute exacerbation at this time. However, patient reports that she has not established with a local primary care provider and has run out of her maintenance inhalers. She does report that she has a nebulizer machine and plenty of DuoNeb solution if required. Patient is discharged home with prescriptions for Spiriva and Symbicort. She is also provided a prescription for a rescue inhaler. She is advised of the importance of smoking cessation. She is encouraged to establish with a local PCP as soon as possible. (4) Chest pain Is this a current diagnosis for this admission?: Yes Summary: Resolved; patient has had no further episodes of chest discomfort. Troponins negative x5. EKG demonstrates normal sinus rhythm. CT of the chest revealed mild to moderate mixed lung opacities consistent with chronic interstitial lung disease. Negative for pulmonary embolus. Discussed with patient recommendations for outpatient stress testing; referral placed to Dr. Pierce. Also discussed with patient her abnormal chest CT findings with recommendations for routine monitoring; emphasized importance of establishing with a primary care provider. (5) Hypokalemia Is this a current diagnosis for this admission?: Yes Summary: Replete. (6) Tobacco use disorder, severe, dependence Is this a current diagnosis for this admission?: Yes Summary: Smoking cessation strongly encouraged. Nicotine replacement therapies provided. Discharged with a prescription for Codey oDerm patches. (7) Abnormal chest CT Is this a current diagnosis for this admission?: Yes Summary: Discussed with patient; advised of importance of establishing with a local primary care provider. Should have follow-up imaging in 7 to 12 weeks as recommended by the radiologist. - Additional Information Resuscitation Status: Full Code Discharge Diet: Cardiac Discharge Activity: Activity As Tolerated, Balance Activity w/Rest, Slowly Increase Activity Prescriptions: Albuterol Sulfate [Ventolin Hfa 8 gm Mdi (1 Mdi/ER Disp)] 2 puff IH Q4HP PRN #1 inhaler PRN Reason: Shortness Of Breath Budesonide/Formoterol Fumarate [Symbicort Hfa 160-4.5 Mcg Inhaler 6 gm] 1 puff IH Q12 #1 inhaler Nicotine [Nicoderm 21 mg/24 Hr Transderm Patch] 1 each TD DAILYP PRN #30 patch.td24 PRN Reason: Prednisone [Deltasone 20 mg Tablet] 60 mg PO DAILY #12 tablet Tiotropium Allons [Spiriva Handihaler 5 Cap/Kit (18 Mcg/Cap)] 1 cap IH DAILY #30 capsule Home Medications: Acetaminophen [Tylenol 325 mg Tablet] 650 mg PO Q4HP PRN tablet 08/26/18 Albuterol Sulfate [Ventolin Hfa 8 gm Mdi (1 Mdi/ER Disp)] 2 puff IH Q4HP PRN #1 inhaler 08/26/18 Budesonide/Formoterol Fumarate [Symbicort Hfa 160-4.5 Mcg Inhaler 6 gm] 1 puff IH Q12 #1 inhaler 08/26/18 Buprenorphine HCl [Subutex 8 mg Sublingual Tablet] 1 tab SL BID 08/26/18 Fluoxetine HCl [Prozac 20 mg Capsule] 60 mg PO DAILY 08/26/18 Gabapentin [Neurontin] 600 mg PO Q6 08/26/18 Hydrochlorothiazide [Hydrodiuril 25 mg Tablet] 25 mg PO DAILY 08/26/18 Ibuprofen [Motrin 800 mg Tablet] 800 mg PO Q6HP PRN tablet 08/26/18 Nicotine [Nicoderm 21 mg/24 Hr Transderm Patch] 1 each TD DAILYP PRN #30 patch.td24 08/26/18 Prednisone [Deltasone 20 mg Tablet] 60 mg PO DAILY #12 tablet 08/26/18 Tiotropium Allons [Spiriva Handihaler 5 Cap/Kit (18 Mcg/Cap)] 1 cap IH DAILY #30 capsule 08/26/18 Trazodone HCl [Desyrel] 150 mg PO QHS 08/26/18 History of Present Illness History of Present Illness: Per H&P by Dr. Benz: ALLYSON OVERTON is a 52 year old female who presented to the emergency room with acute chest pain. Patient admits that she had a sudden onset of a constant, severe, sharp stabbing pain in the left side of her chest and radiating to her left shoulder beginning at 8 AM this morning. The pain was worsened by taking a deep breath, coughing or moving her left arm/chest in certain positions. She reports an associated chronic nonproductive cough typical of her COPD. She denies prior similar symptoms and has not identified any additional aggravating or ameliorating factors for her chest pain. In the emergency room the patient was found to have negative cardiac enzymes and a EKG which revealed no evidence of myocardial ischemia or injury. Patient was noted to be hypotensive with a systolic blood pressure in the 80's which is unusual for her. Further evaluation showed a hyponatremia and a hypokalemia to be present and a CTA of the chest showed no evidence of pulmonary embolism but did reveal evidence of chronic interstitial pulmonary disease. Patient was subsequently admitted to the hospital for further evaluation and treatment. Physical Exam Vital Signs: Temp Pulse Resp BP Pulse Ox 98.6 F 82 18 94/62 L 94 08/26/18 09:02 08/26/18 14:00 08/26/18 09:24 08/26/18 09:02 08/26/18 09:24 Intake & Output 08/25/18 08/26/18 08/27/18 06:59 06:59 06:59 Intake Total 4000 Balance 4000 Weight 91.2 kg General appearance: PRESENT: no acute distress, cooperative, well-developed, well-nourished - Overweight Head exam: PRESENT: atraumatic, normocephalic Eye exam: PRESENT: conjunctiva pink, EOMI, PERRLA. ABSENT: scleral icterus Ear exam: PRESENT: normal external ear exam Mouth exam: PRESENT: moist, tongue midline Teeth exam: PRESENT: poor dentation Neck exam: ABSENT: carotid bruit, JVD, lymphadenopathy, thyromegaly Respiratory exam: PRESENT: clear to auscultation ky, symmetrical, unlabored. ABSENT: rales, rhonchi, wheezes Cardiovascular exam: PRESENT: RRR, +S1, +S2. ABSENT: diastolic murmur, rubs, systolic murmur Pulses: PRESENT: normal dorsalis pedis pul Vascular exam: PRESENT: normal capillary refill GI/Abdominal exam: PRESENT: normal bowel sounds, soft. ABSENT: distended, guarding, mass, organolmegaly, rebound, tenderness Rectal exam: PRESENT: deferred Extremities exam: PRESENT: full ROM. ABSENT: calf tenderness, clubbing, pedal edema Musculoskeletal exam: PRESENT: ambulatory Neurological exam: PRESENT: alert, awake, oriented to person, oriented to place, oriented to time, oriented to situation, CN II-XII grossly intact. ABSENT: motor sensory deficit Psychiatric exam: PRESENT: appropriate affect, normal mood. ABSENT: homicidal ideation, suicidal ideation Skin exam: PRESENT: dry, intact, warm. ABSENT: cyanosis, rash Results Laboratory Results: 08/25/18 15:50 08/26/18 08:44 08/25/18 08/25/18 08/25/18 15:50 15:50 15:50 WBC 8.3 RBC 4.48 Hgb 12.6 Hct 37.7 MCV 84 MCH 28.1 MCHC 33.4 RDW 15.6 H Plt Count 232 Seg Neutrophils % 53.1 Lymphocytes % 35.2 Monocytes % 6.0 Eosinophils % 4.3 Basophils % 1.4 Absolute Neutrophils 4.4 Absolute Lymphocytes 2.9 Absolute Monocytes 0.5 Absolute Eosinophils 0.4 Absolute Basophils 0.1 Sodium 136.1 L Potassium 3.2 L Chloride 95 L Carbon Dioxide 35 H Anion Gap 6 BUN 4 L Creatinine 0.60 Est GFR ( Amer) > 60 Est GFR (Non-Af Amer) > 60 Glucose 107 Lactic Acid Calcium 9.0 Magnesium 2.0 Total Bilirubin 0.6 AST 32 ALT 31 Alkaline Phosphatase 60 Total Protein 7.2 Albumin 4.2 TSH Free T4 Free T3 pg/mL Urine Color Urine Appearance Urine pH Ur Specific [place] Urine Protein Urine Glucose (UA) Urine Ketones Urine Blood Urine Nitrite Ur Leukocyte Esterase Urine WBC (Auto) Urine RBC (Auto) 08/25/18 08/26/18 08/26/18 15:50 00:00 01:20 WBC RBC Hgb Hct MCV MCH MCHC RDW Plt Count Seg Neutrophils % Lymphocytes % Monocytes % Eosinophils % Basophils % Absolute Neutrophils Absolute Lymphocytes Absolute Monocytes Absolute Eosinophils Absolute Basophils Sodium Potassium Chloride Carbon Dioxide Anion Gap BUN Creatinine Est GFR ( Amer) Est GFR (Non-Af Amer) Glucose Lactic Acid Calcium Magnesium Total Bilirubin AST ALT Alkaline Phosphatase Total Protein Albumin TSH 1.87 Free T4 0.96 Free T3 pg/mL 3.60 Urine Color YELLOW Urine Appearance CLEAR Urine pH 7.0 Ur Specific [place] 1.020 Urine Protein NEGATIVE Urine Glucose (UA) NEGATIVE Urine Ketones NEGATIVE Urine Blood SMALL H Urine Nitrite NEGATIVE Ur Leukocyte Esterase NEGATIVE Urine WBC (Auto) 1 Urine RBC (Auto) 1 08/26/18 08/26/18 08/26/18 01:20 05:23 08:44 WBC RBC Hgb Hct MCV MCH MCHC RDW Plt Count Seg Neutrophils % Lymphocytes % Monocytes % Eosinophils % Basophils % Absolute Neutrophils Absolute Lymphocytes Absolute Monocytes Absolute Eosinophils Absolute Basophils Sodium Potassium Chloride Carbon Dioxide Anion Gap BUN Creatinine Est GFR ( Amer) Est GFR (Non-Af Amer) Glucose Lactic Acid 1.4 1.9 1.3 Calcium Magnesium Total Bilirubin AST ALT Alkaline Phosphatase Total Protein Albumin TSH Free T4 Free T3 pg/mL Urine Color Urine Appearance Urine pH Ur Specific [place] Urine Protein Urine Glucose (UA) Urine Ketones Urine Blood Urine Nitrite Ur Leukocyte Esterase Urine WBC (Auto) Urine RBC (Auto) 08/26/18 08:44 WBC RBC Hgb Hct MCV MCH MCHC RDW Plt Count Seg Neutrophils % Lymphocytes % Monocytes % Eosinophils % Basophils % Absolute Neutrophils Absolute Lymphocytes Absolute Monocytes Absolute Eosinophils Absolute Basophils Sodium 140.1 Potassium 4.0 Chloride 104 Carbon Dioxide 31 H Anion Gap 5 BUN 5 L Creatinine 0.50 L Est GFR ( Amer) > 60 Est GFR (Non-Af Amer) > 60 Glucose 110 Lactic Acid Calcium 8.2 L Magnesium Total Bilirubin AST ALT Alkaline Phosphatase Total Protein Albumin TSH Free T4 Free T3 pg/mL Urine Color Urine Appearance Urine pH Ur Specific [place] Urine Protein Urine Glucose (UA) Urine Ketones Urine Blood Urine Nitrite Ur Leukocyte Esterase Urine WBC (Auto) Urine RBC (Auto) 08/25/18 08/25/18 08/25/18 15:50 15:50 20:28 Creatine Kinase 90 CK-MB (CK-2) 0.87 Troponin I < 0.012 < 0.012 08/26/18 08/26/1819 01:20 01:20 07:20 Creatine Kinase 83 73 CK-MB (CK-2) 0.81 Troponin I < 0.012 08/26/18 08/26/18 08/26/18 07:20 13:50 13:50 Creatine Kinase 70 CK-MB (CK-2) 0.92 0.83 Troponin I < 0.012 < 0.012 Impressions: Chest X-Ray 08/25/18 15:30 IMPRESSION: No acute abnormality of the lungs. No focal airspace opacity. Qualifiers - * PATIENT BEING DISCHARGED WITH ANY OF THE FOLLOWING DIAGNOSIS: No Acute Heart Failure - Is this a Heart Failure Patient?: No Plan Discharge Plan: Establish with local primary care provider, Dr. Rhodes, within 1 week. Follow-up with cardiology, Dr. Pierce, within 2 to 4 weeks to schedule cardiac stress test. Stop smoking. Return to the emergency department as needed for concerning symptoms. Time Spent: Greater than 30 Minutes
== END 2018-08-26 18:26 | disposition home or self-care (01) | DRG 641 ==
LOC: ER 15:01 → EH 23:53 → 3S 08-26 02:51
PROVIDERS: ADMIT Emergency Medicine; ATTEND Emergency Medicine
DX: E87.1 Hypo-osmolality and hyponatremia (principal); J84.9 Interstitial pulmonary disease, unspecified; J44.9 Chronic obstructive pulmonary disease, unspecified; Z88.0 Allergy status to penicillin; Z88.1 Allergy status to other antibiotic agents; Z91.030 Bee allergy status; I10 Essential (primary) hypertension; G43.909 Migraine, unspecified, not intractable, without status migrainosus; M19.90 Unspecified osteoarthritis, unspecified site; F32.9 Major depressive disorder, single episode, unspecified; F17.210 Nicotine dependence, cigarettes, uncomplicated; E87.6 Hypokalemia; Z91.19 Patient's noncompliance with other medical treatment and regimen
CPT/HCPCS: 36415; 71046; 71275; 80048; 80053; 81001; 82533; 82550; 82553; 83605; 83735; 84439; 84443; 84481; 84484; 85025; 85610; 93005; 93010; 94667; 94799; J1644; J1720; J3490; J7030; J7120; J7620

== ENCOUNTER 2018-11-14 14:18 | Emergency (ER) | payer SELFPAY ==
[2018-11-14] MEDS ORDERED: IPRATROPIUM/ALBUTEROL 0.5-2.5 MG/3 ML AMPUL NEB ONE (14:42)
[2018-11-14] MEDS ORDERED: PREDNISONE 20 MG TABLET PO ONE (14:42)
--- NOTE | 2018-11-14 14:44 | ER Document Report ---
ED Medical Screen (RME) - General Chief Complaint: Shortness Of Breath Stated Complaint: DIFFICULTY BREATHING Time Seen by Provider: 11/14/18 14:42 Primary Care Provider: SHAUN NEWTON MD [Primary Care Provider] - Follow up as needed Mode of Arrival: Ambulatory Information source: Patient Notes: Patient presents emergency department with history of asthma COPD and request for an inhaler. Reports recently admitted treated for pneumonia. She reports ever since then she has had this constant dry cough. She reports wheezing at night that wakes her up. No other complaints such as fever vomiting diarrhea. Patient reports she quit smoking but her daughter who lives with her right now smokes. She is constantly coughing while in the exam room. Respiratory rate even unlabored positive wheeze, decreased on the right side I have greeted and performed a rapid initial assessment of this patient. A comprehensive ED assessment and evaluation of the patient, analysis of test results and completion of the medical decision making process will be conducted by additional ED providers. Dictation of this chart was performed using voice recognition software; th erefore, there may be some unintended grammatical errors. TRAVEL OUTSIDE OF THE [place] IN LAST 30 DAYS: No - Related Data Allergies/Adverse Reactions: beeswax [Beeswax] Allergy (Verified 08/25/18 15:04) ceftriaxone [From Rocephin] Allergy (Verified 08/25/18 15:04) erythromycin base [Erythromycin Base] Allergy (Verified 08/25/18 15:04) naloxone Allergy (Verified 08/25/18 15:04) Anaphylaxis Penicillins Allergy (Verified 08/25/18 15:04) Past Medical History - Past Medical History Cardiac Medical History: Reports: Hx Hypertension Denies: Hx Congestive Heart Failure, Hx Coronary Artery Disease, Hx DVT, Hx Heart Attack, Hx Hypercholesterolemia, Hx Pulmonary Embolism Pulmonary Medical History: Reports: Hx Asthma, Hx Bronchitis, Hx COPD, Hx Pneumonia Neurological Medical History: Reports: Hx Migraine. Denies: Hx Seizures Endocrine Medical History: Denies: Hx Diabetes Mellitus Type 1, Hx Diabetes Mellitus Type 2, Hx Hyperthyroidism, Hx Hypothyroidism Renal/ Medical History: Denies: Hx Peritoneal Dialysis Malignancy Medical History: Reports: Hx Breast Cancer - Bilateral GI Medical History: Denies: Hx Cirrhosis, Hx Hepatitis Musculoskeltal Medical History: Reports Hx Arthritis - Degenerative disc disease, Denies Hx Gout, Reports Hx Musculoskeletal Deformity, Reports Hx Musculoskeletal Trauma - Right MCL right rotator cuff Skin Medical History: Denies Hx Eczema, Denies Hx Psoriasis Psychiatric Medical History: Reports: Hx Depression Infectious Medical History: Denies: Hx Hepatitis Past Surgical History: Reports: Hx Breast Surgery - bilateral, Hx Section - 3, Hx Cholecystectomy, Hx Orthopedic Surgery - Right knee MCL right shoulder rotator cuff - Immunizations Immunizations up to date: Yes Hx Diphtheria, Pertussis, Tetanus Vaccination: Yes History of Influenza Vaccine for 11/2016 - 04/2017 Season: No Physical Exam - Vital signs Vitals: Temp Pulse Resp BP Pulse Ox 97.9 F 89 18 97/68 L 97 11/14/18 14:21 11/14/18 14:21 11/14/18 14:21 11/14/18 14:21 11/14/18 14:21 Course - Vital Signs Vital signs: Temp Pulse Resp BP Pulse Ox 97.9 F 89 18 97/68 L 97 11/14/18 14:21 11/14/18 14:21 11/14/18 14:21 11/14/18 14:21 11/14/18 14:21 Doctor's Discharge - Discharge Referrals: SHAUN NEWTON MD [Primary Care Provider] - Follow up as needed
--- NOTE | 2018-11-14 15:20 | RADIOLOGY REPORT (SQ) ---
EXAM DESCRIPTION: CHEST 2 VIEWS COMPLETED DATE/TIME: 11/14/2018 3:12 pm REASON FOR STUDY: cough COMPARISON: 08/25/2018 EXAM PARAMETERS: NUMBER OF VIEWS: two views TECHNIQUE: Digital Frontal and Lateral radiographic views of the chest acquired. RADIATION DOSE: NA LIMITATIONS: none FINDINGS: LUNGS AND PLEURA: No opacities, masses or pneumothorax. No pleural effusion. MEDIASTINUM AND HILAR STRUCTURES: No masses or contour abnormalities. HEART AND VASCULAR STRUCTURES: Heart normal size. No evidence for failure. BONES: Stable thoracic scoliosis. HARDWARE: None in the chest. OTHER: No other significant finding. IMPRESSION: NO ACUTE RADIOGRAPHIC FINDING IN THE CHEST. TECHNICAL DOCUMENTATION: JOB ID: [id number] [employer]- All Rights Reserved Reading location - IP/workstation name: [email or web address]
--- NOTE | 2018-11-14 15:27 | ER Document Report ---
ED General - General Chief Complaint: Shortness Of Breath Stated Complaint: DIFFICULTY BREATHING Time Seen by Provider: 11/14/18 14:42 Primary Care Provider: SHAUN NEWTON MD [Primary Care Provider] - Follow up as needed Mode of Arrival: Ambulatory TRAVEL OUTSIDE OF THE [place] IN LAST 30 DAYS: No - Related Data Allergies/Adverse Reactions: beeswax [Beeswax] Allergy (Verified 08/25/18 15:04) ceftriaxone [From Rocephin] Allergy (Verified 08/25/18 15:04) erythromycin base [Erythromycin Base] Allergy (Verified 08/25/18 15:04) naloxone Allergy (Verified 08/25/18 15:04) Anaphylaxis Penicillins Allergy (Verified 08/25/18 15:04) Past Medical History - General Information source: Patient - Social History Smoking Status: Former Smoker Frequency of alcohol use: None Drug Abuse: None Family History: Hypertension Patient has suicidal ideation: No Patient has homicidal ideation: No - Past Medical History Cardiac Medical History: Reports: Hx Hypertension Denies: Hx Congestive Heart Failure, Hx Coronary Artery Disease, Hx DVT, Hx Heart Attack, Hx Hypercholesterolemia, Hx Pulmonary Embolism Pulmonary Medical History: Reports: Hx Asthma, Hx Bronchitis, Hx COPD, Hx Pneumonia Neurological Medical History: Reports: Hx Migraine. Denies: Hx Seizures Endocrine Medical History: Denies: Hx Diabetes Mellitus Type 1, Hx Diabetes Mellitus Type 2, Hx Hyperthyroidism, Hx Hypothyroidism Renal/ Medical History: Denies: Hx Peritoneal Dialysis Malignancy Medical History: Reports: Hx Breast Cancer - Bilateral GI Medical History: Denies: Hx Cirrhosis, Hx Hepatitis Musculoskeletal Medical History: Reports Hx Arthritis - Degenerative disc disease, Denies Hx Gout, Reports Hx Musculoskeletal Deformity, Reports Hx Musculoskeletal Trauma - Right MCL right rotator cuff Skin Medical History: Denies Hx Eczema, Denies Hx Psoriasis Psychiatric Medical History: Reports: Hx Depression Infectious Medical History: Denies: Hx Hepatitis Past Surgical History: Reports: Hx Breast Surgery - bilateral, Hx S ection - 3, Hx Cholecystectomy, Hx Orthopedic Surgery - Right knee MCL right shoulder rotator cuff - Immunizations Immunizations up to date: Yes Hx Diphtheria, Pertussis, Tetanus Vaccination: Yes Physical Exam - Vital signs Vitals: Temp Pulse Resp BP Pulse Ox 97.9 F 89 18 97/68 L 97 11/14/18 14:21 11/14/18 14:21 11/14/18 14:21 11/14/18 14:21 11/14/18 14:21 Course - Vital Signs Vital signs: Temp Pulse Resp BP Pulse Ox 97.9 F 89 18 97/68 L 97 11/14/18 14:21 11/14/18 14:21 11/14/18 14:21 11/14/18 14:21 11/14/18 14:21 Discharge - Discharge Clinical Impression: COPD with exacerbation, Bronchitis Condition: Stable Disposition: HOME, SELF-CARE Instructions: Chronic Obstructive Lung Disease ([facility]), Bronchitis ([facility]) Additional Instructions: PUSH FLUIDS. TAKE STEROIDS PRESCRIBED. USE NEBULIZER MACHINE. TAKE MAINTENANCE INHALER. FOLLOW UP WITH THE CLINIC BELOW THIS WEEK. RETURN IF WORSENING. CONTINUE SMOKING CESSATION. Prescriptions: Prednisone [Deltasone 10 mg Tablet] 10 mg PO ASDIR PRN #21 tablet PRN Reason: Doxycycline Hyclate 100 mg PO BID #14 capsule Albuterol Sulfate [Proair HFA Inhalation Aerosol 8.5 gm MDI] 2 puff IH Q4H PRN # 1 mdi PRN Reason: Budesonide/Formoterol Fumarate [Symbicort HFA 160-4.5 mcg Inhaler 6 gm] 1 puff IH Q12 #1 inhaler Albuterol Sulfate [Ventolin 0.083% Neb 2.5 mg/3 mL Ampul] 1 vial NEB Q4 #30 vial Referrals: [facility] [Provider Group] - Follow up in 1 week
[2018-11-14] MEDS ORDERED: ALBUTEROL SULFATE HFA (90 MCG/PUFF) 8 GM MDI (1 MDI/ER DISP) IH ONE (16:27)
[2018-11-14] MEDS ORDERED: ALBUTEROL SULFATE 0.083% NEB 2.5 MG/3 ML AMPUL NEB ONE (16:27)
[2018-11-14 17:29] VITALS: BP 110/60
== END 2018-11-14 17:00 | disposition home or self-care (01) ==
LOC: ER 14:18
DX: J44.0 Chronic obstructive pulmonary disease with (acute) lower respiratory infection (principal); J44.1 Chronic obstructive pulmonary disease with (acute) exacerbation; R06.02 Shortness of breath; Z87.891 Personal history of nicotine dependence; I10 Essential (primary) hypertension
CPT/HCPCS: 71046; J7512; J3490; J7620; 94640; 99284

== ENCOUNTER 2019-04-26 16:27 | Inpatient (IN) | payer SELFPAY ==
[2019-04-26] MEDS ORDERED: NORMAL SALINE 1000 ML 1,000 ML IV ONE ×4 (16:48→21:05)
--- NOTE | 2019-04-26 16:50 | ER Document Report ---
ED Medical Screen (RME) - General Chief Complaint: Chest Pain Stated Complaint: CHEST PAIN Time Seen by Provider: 04/26/19 16:46 Primary Care Provider: SHAUN NEWTON MD [Primary Care Provider] - Follow up as needed Notes: Patient is a 53-year-old female who presents emergency department with a chief complaint of chest pain. Patient reports she has been battling a dry cough for about 1 month. Patient reports over the past 5 days developing chest pain and a stabbing sensation in her back. Patient reports she had a temp of 101.5 at home. Patient reports increased wheezing. Patient reports recent dizziness and lightheadedness but denies the symptoms at this time. Patient reports a decreased energy and fatigue. Patient reports that she did have some diarrhea a few days ago but this has since improved. Patient reports she does smoke about a half a pack of cigarettes per day. TRAVEL OUTSIDE OF THE [place] IN LAST 30 DAYS: No - Related Data Allergies/Adverse Reactions: beeswax [Beeswax] Allergy (Verified 08/25/18 15:04) ceftriaxone [From Rocephin] Allergy (Verified 08/25/18 15:04) erythromycin base [Erythromycin Base] Allergy (Verified 08/25/18 15:04) naloxone Allergy (Verified 08/25/18 15:04) Anaphylaxis Penicillins Allergy (Verified 08/25/18 15:04) Past Medical History - Social History Chew tobacco use (# tins/day): No Frequency of alcohol use: None Drug Abuse: None - Past Medical History Cardiac Medical History: Reports: Hx Hypertension Denies: Hx Congestive Heart Failure, Hx Coronary Artery Disease, Hx DVT, Hx Heart Attack, Hx Hypercholesterolemia, Hx Pulmonary Embolism Pulmonary Medical History: Reports: Hx Asthma, Hx Bronchitis, Hx COPD, Hx Pneumonia Neurological Medical History: Reports: Hx Migraine. Denies: Hx Seizures Endocrine Medical History: Denies: Hx Diabetes Mellitus Type 1, Hx Diabetes Mellitus Type 2, Hx Hyperthyroidism, Hx Hypothyroidism Renal/ Medical History: Denies: Hx Peritoneal Dialysis Malignancy Medical History: Reports: Hx Breast Cancer - Bilateral GI Medical History: Denies: Hx Cirrhosis, Hx Hepatitis Musculoskeltal Medical History: Reports Hx Arthritis - Degenerative disc disease, Denies Hx Gout, Reports Hx Musculoskeletal Deformity, Reports Hx Musculoskeletal Trauma - Right MCL right rotator cuff Skin Medical History: Denies Hx Eczema, Denies Hx Psoriasis Psychiatric Medical History: Reports: Hx Depression Infectious Medical History: Denies: Hx Hepatitis Past Surgical History: Reports: Hx Breast Surgery - bilateral, Hx Secti on - 3, Hx Cholecystectomy, Hx Orthopedic Surgery - Right knee MCL right shoulder rotator cuff - Immunizations Immunizations up to date: Yes Hx Diphtheria, Pertussis, Tetanus Vaccination: Yes Physical Exam - Vital signs Vitals: Temp Pulse Resp Pulse Ox 98.1 F 84 18 98 04/26/19 16:38 04/26/19 16:38 04/26/19 16:38 04/26/19 16:38 - Respiratory Respiratory status: No respiratory distress Chest status: Nontender Breath sounds: Normal Chest palpation: Normal Course - Re-evaluation Re-evalutation: 04/26/19 16:50 Patient is hypotensive with a blood pressure in the 70s systolic here in triage. Patient is mentating appropriately, alert and oriented x3, patient is not tachycardic or febrile. Will initiate basic labs including a lactate, IV fluids and chest x-ray. I have greeted and performed a rapid initial assessment of this patient. A comprehensive ED assessment and evaluation of the patient, analysis of test results and completion of the medical decision making process will be conducted by additional ED providers. - Vital Signs Vital signs: Temp Pulse Resp BP Pulse Ox 98.1 F 84 18 78/54 L 98 04/26/19 16:38 04/26/19 16:38 04/26/19 16:38 04/26/19 16:47 04/26/19 16:38 Doctor's Discharge - Discharge Referrals: SHAUN NEWTON MD [Primary Care Provider] - Follow up as needed
[2019-04-26 17:21] LABS: ABSOLUTE EOSINOPHILS # (AUTO) 0.2 10^3/uL (0.0-0.6); ABSOLUTE LYMPHOCYTES (AUTO) 3.4 10^3/uL (0.5-4.7); ABSOLUTE MONOCYTES (AUTO) 0.3 10^3/uL (0.1-1.4); ABSOLUTE NEUT (AUTO) 2.8 10^3/uL (1.7-8.2); BASOPHILS % (AUTO) 0.7 % (0-2); HEMATOCRIT 42.3 % (36.0-47.0); LYMPHOCYTES % (AUTO) 50.3 % (13-45); MEAN CORPUSCULAR HEMOGLOBIN 27.9 pg (27.0-33.4); MEAN CORPUSCULAR HGB CONC 33.2 g/dL (32.0-36.0); MEAN CORPUSCULAR VOLUME 84 fl (80-97); PLATELET COUNT 251 10^3/uL (150-450); RED BLOOD COUNT 5.03 10^6/uL (3.72-5.28); RED CELL DISTRIBUTION WIDTH 16.2 % (11.5-14.0); TOTAL CELLS COUNTED % (AUTO) 100 %; WHITE BLOOD COUNT 6.7 10^3/uL (4.0-10.5)
--- NOTE | 2019-04-26 17:28 | RADIOLOGY REPORT (SQ) ---
EXAM DESCRIPTION: CHEST 2 VIEWS COMPLETED DATE/TIME: 04/26/2019 5:16 pm REASON FOR STUDY: Cough x 4 weeks, Hypotension COMPARISON: Chest radiographs 11/14/2018 EXAM PARAMETERS: NUMBER OF VIEWS: two views TECHNIQUE: Digital Frontal and Lateral radiographic views of the chest acquired. RADIATION DOSE: NA LIMITATIONS: none FINDINGS: LUNGS AND PLEURA: No opacities, masses or pneumothorax. No pleural effusion. MEDIASTINUM AND HILAR STRUCTURES: Unchanged contours. HEART AND VASCULAR STRUCTURES: Heart normal size. No evidence for failure. Mild calcified atheroscl erotic changes of the aortic arch. BONES: No acute findings. HARDWARE: Right upper quadrant surgical clips. OTHER: No other significant finding. IMPRESSION: No acute pulmonary findings. TECHNICAL DOCUMENTATION: JOB ID: [id number] [employer]- All Rights Reserved Reading location - IP/workstation name: [email or web address]
[2019-04-26 17:33] LABS: ALBUMIN 4.6 g/dL (3.5-5.0); ALKALINE PHOSPHATASE 59 U/L (38-126); ANION GAP 10 (5-19); ASPARTATE AMINO TRANSFERASE 36 U/L (14-36); BILIRUBIN,TOTAL 0.6 mg/dL (0.2-1.3); BLOOD UREA NITROGEN 4 mg/dL (7-20); CARBON DIOXIDE 29 mmol/L (22-30); CHLORIDE 100 mmol/L (98-107); GLUCOSE 102 mg/dL (75-110); POTASSIUM 3.4 mmol/L (3.6-5.0); TOTAL PROTEIN 7.8 g/dL (6.3-8.2)
[2019-04-26] MEDS ORDERED: KETOROLAC TROMETHAMINE INJ/PF 30 MG/1 ML SDV IV ONE (18:19)
--- NOTE | 2019-04-26 18:22 | ER Document Report ---
ED General - General Chief Complaint: Chest Pain Stated Complaint: CHEST PAIN Time Seen by Provider: 04/26/19 16:46 Primary Care Provider: SHAUN NEWTON MD [ACTIVE PROVISIONAL STAFF] - Follow up as needed Mode of Arrival: Ambulatory Information source: Patient TRAVEL OUTSIDE OF THE [place] IN LAST 30 DAYS: No - HPI Onset: Other - over the last 5 days Onset/Duration: Gradual Quality of pain: Sharp, Stabbing Severity: Moderate Pain Level: 3 Associated symptoms: Body/muscle aches, Chills, Nonproductive cough, Fever Exacerbated by: Denies Relieved by: Denies Similar symptoms previously: No Recently seen / treated by doctor: No Notes: 53 year old female with a history of COPD here for 5 days of left sided back/torso pain which is made worse with coughing with associated fevers (Tmax 101.5F yesterday). The patient says she has been around family members with the Flu recently. The patient is a smoker and she recently had a 5 [address] ride but she has no history of blood clots personally or in her family other then someone who had AFib. - Related Data Allergies/Adverse Reactions: beeswax [Beeswax] Allergy (Verified 08/25/18 15:04) ceftriaxone [From Rocephin] Allergy (Verified 08/25/18 15:04) erythromycin base [Erythromycin Base] Allergy (Verified 08/25/18 15:04) naloxone Allergy (Verified 08/25/18 15:04) Anaphylaxis Penicillins Allergy (Verified 08/25/18 15:04) Past Medical History - Social History Smoking Status: Current Every Day Smoker Chew tobacco use (# tins/day): No Frequency of alcohol use: None Drug Abuse: None Family History: Hypertension Patient has suicidal ideation: No Patient has homicidal ideation: No - Past Medical History Cardiac Medical History: Reports: Hx Hypertension Denies: Hx Congestive Heart Failure, Hx Coronary Artery Disease, Hx DVT, Hx Heart Attack, Hx Hypercholesterolemia, Hx Pulmonary Embolism Pulmonary Medical History: Reports: Hx Asthma, Hx Bronchitis, Hx COPD, Hx Pneumonia Neurological Medical History: Reports: Hx Migraine. Denies: Hx Seizures Endocrine Medical History: Denies: Hx Diabetes Mellitus Type 1, Hx Diabetes Mellitus Type 2, Hx Hyperthyroidism, Hx Hypothyroidism Renal/ Medical History: Denies: Hx Peritoneal Dialysis Malignancy Medical History: Reports: Hx Breast Cancer - Bilateral GI Medical History: Denies: Hx Cirrhosis, Hx Hepatitis Musculoskeletal Medical History: Reports Hx Arthritis - Degenerative disc disease, Denies Hx Gout, Reports Hx Musculoskeletal Deformity, Reports Hx Musculoskeletal Trauma - Right MCL right rotator cuff Skin Medical History: Denies Hx Eczema, Denies Hx Psoriasis Psychiatric Medical History: Reports: Hx Depression Infectious Medical History: Denies: Hx Hepatitis Past Surgical History: Reports: Hx Breast Surgery - bilateral, Hx Section - 3, Hx Cholecystectomy, Hx Orthopedic Surgery - Right knee MCL right shoulder rotator cuff - Immunizations Immunizations up to date: Yes Hx Diphtheria, Pertussis, Tetanus Vaccination: Yes Physical Exam - Vital signs Vitals: Temp Pulse Resp Pulse Ox 98.1 F 84 18 98 04/26/19 16:38 04/26/19 16:38 04/26/19 16:38 04/26/19 16:38 - Notes Notes: GENERAL: Well-appearing, well-nourished and in no acute distress. HEAD: Atraumatic, normocephalic. EYES: Pupils equal round and reactive to light, extraocular movements intact, sclera anicteric, conjunctiva are normal. ENT: TMs normal, nares patent, oropharynx clear without exudates. Moist mucous membranes. NECK: Normal range of motion, supple without lymphadenopathy or JVD. LUNGS: Mild expiratory wheezes rales or rhonchi. HEART: Regular rate and rhythm without murmurs, rubs or gallops. ABDOMEN: Soft, nontender, normoactive bowel sounds. No guarding, no rebound. No masses appreciated. EXTREMITIES: Normal range of motion, no pitting or edema. No clubbing or cyanosis. NEUROLOGICAL: Cranial nerves II through XII grossly intact. Normal speech, normal gait. PSYCH: Normal mood, normal affect. SKIN: Warm, Dry, normal turgor, no rashes or lesions noted. Course - Re-evaluation Re-evalutation: 04/26/19 21:12 The patient has had a cough, fevers, and weakness. She had a clear chest xray and tested negative for the flu but the CTA chest showed likely pneumonia. Patient has persistent hypotension despite multiple fluid boluses. Patient therefore will need admission. Patient treated with Levaquin in the ER. Hospitalist requested I call the ICU due to persistent hypotension. ICU will evaluated the patient but they fell the patient is safe for step down and I agree. 04/26/19 22:19 The patient has persistent hypotension. Due to this, a random cortisol level was checked and it came back at 1.73. Patient was therefore given a dose of hydrocortisone 100mg IV. Patient will be admitted to step down. - Vital Signs Vital signs: Temp Pulse Resp BP Pulse Ox 98.3 F 84 15 86/49 L 93 04/26/19 20:18 04/26/19 16:38 04/26/19 22:01 04/26/19 22:00 04/26/19 22:01 - Laboratory Result Diagrams: 04/26/19 16:57 04/26/19 16:57 Laboratory results interpreted by me: 04/26/19 04/26/19 04/26/19 16:57 16:57 21:40 RDW 16.2 H Lymph % (Auto) 50.3 H Seg Neutrophils % 41.0 L Potassium 3.4 L BUN 4 L Urine Blood SMALL H - Diagnostic Test Radiology reviewed: Image reviewed, Reports reviewed - EKG Interpretation by [facility] EKG shows normal: Sinus rhythm, [place], Intervals, QRS Complexes Rate: Normal Rhythm: NSR Additional EKG results interpreted by me: 04/26/19 22:21 T wave inversions in V1-V6 Discharge - Discharge Clinical Impression: Adrenal insufficiency Pneumonia Qualifiers: Pneumonia type: due to unspecified organism Laterality: unspecified laterality Lung location: unspecified part of lung Qualified Code(s): J18.9 - Pneumonia, unspecified organism Hypotension Qualifiers: Hypotension type: unspecified hypotension type Qualified Code(s): I95.9 - Hypotension, unspecified Condition: Fair Disposition: ADMITTED INPATIENT Unit Admitted: IMCU Referrals: SHAUN NEWTON MD [ACTIVE PROVISIONAL STAFF] - Follow up as needed
[2019-04-26] MEDS ORDERED: IPRATROPIUM/ALBUTEROL 0.5-2.5 MG/3 ML AMPUL NEB ONE (18:25)
[2019-04-26 18:31] LABS: A TYPE INFLUENZA AG NEGATIVE (NEGATIVE); B INFLUENZA AG NEGATIVE (NEGATIVE)
[2019-04-26] MEDS ORDERED: ONDANSETRON HCL INJ/PF 4 MG/2 ML SDV IV ONE (19:45)
--- NOTE | 2019-04-26 20:41 | RADIOLOGY REPORT (SQ) ---
EXAM DESCRIPTION: CTA chest with contrast CLINICAL HISTORY: 53 years Female, rule out PE COMPARISON: CTA chest 08/25/2018 TECHNIQUE: Axial images of the chest were performed utilizing intravenous contrast, with sagittal and coronal MIP images and sagittal and coronal reformatted images. This exam was performed according to our departmental dose-optimization program which includes use of Automated Exposure Control, adjustment of the mA and/or kV according to patient size and/or use of iterative reconstruction technique. FINDINGS: There is bilateral interstitial pulmonary thickening. There is hazy opacity within the lungs bilaterally. There is mild mediastinal and bilateral hilar adenopathy. No evidence of pulmonary embolus. No evidence of aortic dissection. Images of the upper abdomen show fatty infiltration of the liver. There is no significant change, as compared with the prior CT scan. IMPRESSION: Bilateral interstitial pulmonary thickening, with hazy opacity in the lungs bilaterally. Findings may represent alveolitis/pneumonia superimposed on chronic interstitial lung disease. Mild mediastinal and bilateral hilar adenopathy. Fatty liver.
[2019-04-26] MEDS ORDERED: LEVOFLOXACIN 750 MG/D5W RTU 750 MG/150 ML RTUPB IV ONE (21:05)
[2019-04-26 22:05] LABS: APPEARANCE,URINE CLEAR; BILIRUBIN,URINE NEGATIVE (NEGATIVE); COLOR,URINE YELLOW; GLUCOSE, URINE NEGATIVE (NEGATIVE); KETONES,URINE NEGATIVE (NEGATIVE); LEUKOCYTE ESTERASE,URINE NEGATIVE (NEGATIVE); NITRITE,URINE NEGATIVE (NEGATIVE); PROTEIN,URINE NEGATIVE (NEGATIVE); UROBILINOGEN,URINE NEGATIVE mg/dL (<2.0)
[2019-04-26] MEDS ORDERED: HYDROCODONE/ACETAMINOPHEN 5-325 MG TABLET PO ONE (22:09)
[2019-04-26] MEDS ORDERED: HYDROCORTISONE SOD SUCCINATE INJ/PF 100 MG/2 ML SDV IV ONE (22:17)
--- NOTE | 2019-04-26 22:45 | EKG REPORT ---
SEVERITY:- ABNORMAL ECG - SINUS RHYTHM NONSPECIFIC T ABNORMALITIES, DIFFUSE LEADS BORDERLINE PROLONGED QT INTERVAL : Confirmed by: Bri Prieto MD 26-Apr-2019 22:45:12
--- NOTE | 2019-04-26 22:49 | Progress Note ---
Provider Note Provider Note: Patient seen and examined at the request of the ED physician. Per ED physician, attempts were made to admit pt to Dr. Marks but he refused to take her based on her documented blood pressures. Pt remained hypotensive and was not fluid responsive while in the ED. This LAY OUT INSPECTOR was asked to review the chart and assess the pt to offer a second opinion regarding admission of the patient. Upon review of prior admission notes and discharge summary, it was noted that pt was hypotensive. She was not as hypotensive as she currently is, but her most recent discharge note stated that automatic blood pressure measurements reported significantly lower blood pressure readings than manual cuff readings. Upon further review of the chart, her random cortisol on 09/13/18 was 4.5 and upon review of her medication reconciliation, she was last prescribed steroids in October of 2018. Her current labs are benign and chest CT showing possible beginnings of pneumonia. When arriving to the ED to assess the pt, she was walking from the ED room, across the bryson to the bathroom unassisted without any complications and a having a steady gait. Pt walked back from the bathroom and stood at the side of the bed drinking a soda while answering questions. Pt stated she had not been feeling well for several days and thought maybe she had been exposed to the flu from family members at home. She states he blood pressure usually runs low, but it has never been this low for a sustained period. She denied dizziness, CP or syncope. RN, who was at the bedside for the entire interview, had pt sit at the bedside obtained a manual pressure to be SBP of 84. Pt states she had some minor palpitations that had just recently started over the past day or tow but they were not too bothersome. She reported cough that she felt like she needed to get sputum up, but couldn't. Lungs had scattered crackles without wheezes. Heart was RRR without M/R/G. Denied swelling of the legs. No difficulty with urinating and had no N/V/D but reported decreased appetite for 2-3 days. Skin was w/d without edema. Pt stated that she has been out of her nebulizers at home and her wheezing has been worse at night. I discussed with patient the likely diagnosis of adrenal insufficiency and explained the psychophysiology behind this in a manner that she stated understanding. Other recommendations that I suggested to the pt that she should follow up on are asking for an Echo to assess her baseline cardiac function and rule out causes of hypotension and wheezing. She stated her mom and daughter were just recently diagnosed with heart problems after getting an Echo and she has chronic lung conditions. Ask if she has ever been tested for Alpha-1 antit rypsin deficiency, she may benefit from referral. Ask for refills of home nebulizers prior to discharger to avoid readmission. Recommendations to administer hydrocortisone were given. Pt was presented to Dr. Guzmán, via phone call, who agrees that she does not require ICU admission at this time.
[2019-04-26] MEDS ORDERED: IPRATROPIUM/ALBUTEROL 0.5-2.5 MG/3 ML AMPUL NEB PRN (23:26)
[2019-04-26] MEDS ORDERED: ACETAMINOPHEN 325 MG TABLET PO PRN (23:26)
[2019-04-26 23:58] LABS: URINE AMPHETAMINES SCREEN NEGATIVE; URINE BARBITURATES SCREEN NEGATIVE; URINE BENZODIAZEPINES SCREEN NEGATIVE; URINE COCAINE SCREEN NEGATIVE; URINE MARIJUANA (THC) SCREEN NEGATIVE; URINE METHADONE SCREEN NEGATIVE; URINE PHENCYCLIDINE SCREEN NEGATIVE
[2019-04-27] MEDS: CHLORPHENIRAMINE MALEATE 4 MG TABLET PO SCH ×5 (00:58→21:45)
[2019-04-27] MEDS: IPRATROPIUM/ALBUTEROL 0.5-2.5 MG/3 ML AMPUL NEB SCH ×4 (01:53→21:29)
[2019-04-27] MEDS ORDERED: INFLUENZA QUAD (6MOS+) 2019-20 VAC 0.5 ML SYR IM ONE (03:33)
[2019-04-27] MEDS ORDERED: CHLORPHENIRAMINE MALEATE 4 MG TABLET ONE (05:27)
--- NOTE | 2019-04-27 05:32 | PDOC H&P ---
History of Present Illness Admission Date/PCP: 04/26/19 23:24 Patient complains of: Shortness of breath History of Present Illness: ALLYSON OVERTON is a 53 year old female with a past medical history of chronic pain on COPD, chronic bronchitis, tobacco, hypertension chronic sharp left-sided chest pain on Suboxone resulting in hypotension. In the emergency department she is found to have tachypnea, leukocytosis, a blood pressure of 70/50 without tachycardia. CTA is negative for PE but there are bilateral infiltrates. Unchanged from previous 8 months ago. She receives empiric antibiotics, albuterol and Atrovent, steroids and referred to the hospitalist for admission. She admits to chronic rhinorrhea denies sore throat nausea vomiting or palpitations but admits to her chronic sharp left-sided chest pain. Past Medical History Cardiac Medical History: Reports: Hypertension Denies: Congestive Heart Failure, Coronary Artery Disease, DVT, Myocardial Infarction, Hyperlipidema, Pulmonary Embolism Pulmonary Medical History: Reports: Asthma, Bronchitis, Chronic Obstructive Pulmonary Disease (COPD), Pneumonia Neurological Medical History: Reports: Migraine Denies: Seizures Endocrine Medical History: Denies: Diabetes Mellitus Type 1, Diabetes Mellitus Type 2, Hyperthyroidism, Hypothyroidism Malignancy Medical History: Reports: Breast Cancer - Bilateral GI Medical History: Denies: Cirrhosis, Hepatitis Musculoskeltal Medical History: Reports: Arthritis - Degenerative disc disease Denies: Gout Skin Medical History: Denies: Eczema, Psoriasis Psychiatric Medical History: Reports: Depression, Tobacco Dependency Hematology: Denies: Anemia, Bleeding Tendencies Past Surgical History Past Surgical History: Reports: Section - 3, Cholecystectomy, Orthopedic Surgery - Right knee MCL right shoulder rotator cuff Social History Smoking Status: Current Every Day Smoker Cigarettes Packs Per Day: 1.5 Electronic Cigarette use?: No Last Time Smoked: 04/26/2019 Frequency of Alcohol Use: None Hx Recreational Drug Use: No Hx Prescription Drug Abuse: No - Advance Directive Resuscitation Status: Full Code Family History Family History: Hypertension Parental Family History Reviewed: Yes Children Family History Reviewed: Yes Sibling(s) Family History Reviewed.: Yes Medication/Allergy Home Medications: Acetaminophen [Tylenol 325 mg Tablet] 650 mg PO Q4HP PRN tablet 08/26/18 Albuterol Sulfate [Ventolin Hfa 8 gm Mdi (1 Mdi/ER Disp)] 2 puff IH Q4HP PRN #1 inhaler 08/26/18 Budesonide/Formoterol Fumarate [Symbicort Hfa 160-4.5 Mcg Inhaler 6 gm] 1 puff IH Q12 #1 inhaler 08/26/18 Buprenorphine HCl [Subutex 8 mg Sublingual Tablet] 1 tab SL BID 08/26/18 Fluoxetine HCl [Prozac 20 mg Capsule] 60 mg PO DAILY 08/26/18 Gabapentin [Neurontin] 600 mg PO Q6 08/26/18 Hydrochlorothiazide [Hydrodiuril 25 mg Tablet] 25 mg PO DAILY 08/26/18 Ibuprofen [Motrin 800 mg Tablet] 800 mg PO Q6HP PRN tablet 08/26/18 Nicotine [Nicoderm 21 mg/24 Hr Transderm Patch] 1 each TD DAILYP PRN #30 patch.td24 08/26/18 Prednisone [Deltasone 20 mg Tablet] 60 mg PO DAILY #12 tablet 08/26/18 Tiotropium [place] [Spiriva Handihaler 5 Cap/Kit (18 Mcg/Cap)] 1 cap IH DAILY #30 capsule 08/26/18 Trazodone HCl [Desyrel] 150 mg PO QHS 08/26/18 Albuterol Sulfate [Proair HFA Inhalation Aerosol 8.5 gm MDI] 2 puff IH Q4H PRN #1 mdi 11/14/18 Albuterol Sulfate [Ventolin 0.083% Neb 2.5 mg/3 mL Ampul] 1 vial NEB Q4 #30 vial 11/14/18 Budesonide/Formoterol Fumarate [Symbicort HFA 160-4.5 mcg Inhaler 6 gm] 1 puff IH Q12 #1 inhaler 11/14/18 Doxycycline Hyclate 100 mg PO BID #14 capsule 11/14/18 Prednisone [Deltasone 10 mg Tablet] 10 mg PO ASDIR PRN #21 tablet 11/14/18 Allergies/Adverse Reactions: beeswax [Beeswax] Allergy (Verified 08/25/18 15:04) ceftriaxone [From Rocephin] Allergy (Verified 08/25/18 15:04) erythromycin base [Erythromycin Base] Allergy (Verified 08/25/18 15:04) naloxone Allergy (Verified 08/25/18 15:04) Anaphylaxis Penicillins Allergy (Verified 08/25/18 15:04) Review of Systems Constitutional: ABSENT: chills, fever(s), headache(s), weight gain, weight loss Eyes: ABSENT: visual disturbances Ears: ABSENT: hearing changes Cardiovascular: ABSENT: chest pain, dyspnea on exertion, edema, orthropnea, palpitations Respiratory: ABSENT: cough, hemoptysis Gastrointestinal: ABSENT: abdominal pain, constipation, diarrhea, hematemesis, hematochezia, nausea, vomiting Genitourinary: ABSENT: dysuria, hematuria Musculoskeletal: ABSENT: joint swelling Integumentary: ABSENT: rash, wounds Neurological: ABSENT: abnormal gait, abnormal speech, confusion, dizziness, focal weakness, syncope Psychiatric: ABSENT: anxiety, depression, homidical ideation, suicidal ideation Endocrine: ABSENT: cold intolerance, heat intolerance, polydipsia, polyuria Hematologic/Lymphatic: ABSENT: easy bleeding, easy bruising Physical Exam Vital Signs: Temp Pulse Resp BP Pulse Ox 98.1 F 74 16 110/64 92 04/27/19 04:00 04/27/19 04:00 04/27/19 04:00 04/27/19 04:00 04/27/19 04:00 Intake & Output 04/25/19 04/26/19 04/27/19 11:59 11:59 11:59 Intake Total 4550 Balance 4550 Weight 89.5 kg General appearance: PRESENT: no acute distress, well-developed, well-nourished Head exam: PRESENT: atraumatic, normocephalic Eye exam: PRESENT: conjunctiva pink, EOMI, PERRLA. ABSENT: scleral icterus Ear exam: PRESENT: normal external ear exam Mouth exam: PRESENT: moist, tongue midline Neck exam: ABSENT: carotid bruit, JVD, lymphadenopathy, thyromegaly Respiratory exam: PRESENT: crackles, prolonged expiratory phas, tachypnea. ABSENT: rales, rhonchi, wheezes Cardiovascular exam: PRESENT: RRR. ABSENT: diastolic murmur, rubs, systolic murmur Pulses: PRESENT: normal dorsalis pedis pul Vascular exam: PRESENT: normal capillary refill GI/Abdominal exam: PRESENT: normal bowel sounds, soft. ABSENT: distended, guarding, mass, organolmegaly, rebound, tenderness Rectal exam: PRESENT: deferred Extremities exam: PRESENT: full ROM. ABSENT: calf tenderness, clubbing, pedal edema Neurological exam: PRESENT: alert, awake, oriented to person, oriented to place, oriented to time, oriented to situation, CN II-XII grossly intact. ABSENT: motor sensory deficit Psychiatric exam: PRESENT: appropriate affect, normal mood. ABSENT: homicidal ideation, suicidal ideation Skin exam: PRESENT: dry, intact, warm. ABSENT: cyanosis, rash Results Laboratory Results: 04/26/19 16:57 04/26/19 16:57 04/26/19 04/26/19 04/26/19 16:57 16:57 16:57 WBC 6.7 RBC 5.03 Hgb 14.0 Hct 42.3 MCV 84 MCH 27.9 MCHC 33.2 RDW 16.2 H Plt Count 251 Seg Neutrophils % 41.0 L Sodium 138.5 Potassium 3.4 L Chloride 100 Carbon Dioxide 29 Anion Gap 10 BUN 4 L Creatinine 0.70 Est GFR ( Amer) > 60 Glucose 102 Lactic Acid 1.5 Calcium 9.0 Total Bilirubin 0.6 AST 36 Alkaline Phosphatase 59 Total Protein 7.8 Albumin 4.6 Urine Color Urine Appearance Urine pH Ur Specific [place] Urine Protein Urine Glucose (UA) Urine Ketones Urine Blood Urine Nitrite Ur Leukocyte Esterase Urine WBC (Auto) Urine RBC (Auto) 04/26/19 21:40 WBC RBC Hgb Hct MCV MCH MCHC RDW Plt Count Seg Neutrophils % Sodium Potassium Chloride Carbon Dioxide Anion Gap BUN Creatinine Est GFR ( Amer) Glucose Lactic Acid Calcium Total Bilirubin AST Alkaline Phosphatase Total Protein Albumin Urine Color YELLOW Urine Appearance CLEAR Urine pH 6.0 Ur Specific [place] 1.050 Urine Protein NEGATIVE Urine Glucose (UA) NEGATIVE Urine Ketones NEGATIVE Urine Blood SMALL H Urine Nitrite NEGATIVE Ur Leukocyte Esterase NEGATIVE Urine WBC (Auto) 1 Urine RBC (Auto) 1 04/26/19 04/26/19 16:57 16:57 Troponin I < 0.012 NT-Pro-B Natriuret Pep 60 Impressions: Chest X-Ray 04/26/19 16:47 IMPRESSION: No acute pulmonary findings. Chest/Abdomen CTA 04/26/19 19:28 IMPRESSION: Bilateral interstitial pulmonary thickening, with hazy opacity in the lungs bilaterally. Findings may represent alveolitis/pneumonia superimposed on chronic interstitial lung disease. Mild mediastinal and bilateral hilar adenopathy. Fatty liver. Assessment and Plan - Diagnosis (1) Chronic pain Qualifiers: Chronic pain type: chronic pain syndrome Qualified Code(s): G89.4 - Chronic pain syndrome Is this a current diagnosis for this admission?: Yes Plan: Verified at baseline, limit Suboxone given hypotension (2) Adrenal insufficiency Is this a current diagnosis for this admission?: Yes Plan: Work-up undertaken following hypotension. However she is nontoxic-appearing. Work-up resulted in a random cortisol of 1.7. However immediate improvement of blood pressure following Narcan trial. She received a single dose of Solu- Cortef I will withhold mineralocorticoid unless hypotension recurs. (3) Hypotension Qualifiers: Hypotension type: unspecified hypotension type Qualified Code(s): I95.9 - Hypotension, unspecified Is this a current diagnosis for this admission?: Yes Plan: Without tachycardia without distress, secondary to Suboxone. Unimproved following 4 L of normal saline reversed by Narcan trial (4) Pneumonia Qualifiers: Pneumonia type: due to unspecified organism Laterality: unspecified laterality Lung location: unspecified part of lung Qualified Code(s): J18.9 - Pneumonia, unspecified organism Is this a current diagnosis for this admission?: Yes Plan: Likely chronic sinusitis, bronchitis, chronic interstitial changes on imaging unchanged from 8 months ago. Pneumonia care set, empiric Levaquin trial, follow-up CBC (5) COPD (chronic obstructive pulmonary disease) Qualifiers: COPD type: unspecified COPD Qualified Code(s): J44.9 - Chronic obstructive pulmonary disease, unspecified Is this a current diagnosis for this admission?: Yes Plan: Tobacco cessation, flutter valve, incentive spirometry, supplemental oxygen, Levaquin - Time Time Spent with patient: 25-34 minutes - Inpatient Certification Medical Necessity: Need Close Monitoring Due to Risk of Patient Decompensation
[2019-04-27] MEDS: HEPARIN SOD (PORCINE) 5,000 UNIT/ML 1 ML VIAL SUBCUT SCH ×3 (05:38→21:46)
[2019-04-27 05:45] LABS: ABSOLUTE LYMPHOCYTES (AUTO) 1.3 10^3/uL (0.5-4.7); ABSOLUTE MONOCYTES (AUTO) 0.2 10^3/uL (0.1-1.4); ABSOLUTE NEUT (AUTO) 5.2 10^3/uL (1.7-8.2); BASOPHILS % (AUTO) 0.4 % (0-2); EOSINOPHILS % (AUTO) 0.2 % (0-6); HEMATOCRIT 36.3 % (36.0-47.0); LYMPHOCYTES % (AUTO) 18.9 % (13-45); MEAN CORPUSCULAR HEMOGLOBIN 27.8 pg (27.0-33.4); MEAN CORPUSCULAR VOLUME 84 fl (80-97); MONOCYTES % (AUTO) 2.4 % (3-13); PLATELET COUNT 190 10^3/uL (150-450); RED BLOOD COUNT 4.31 10^6/uL (3.72-5.28); RED CELL DISTRIBUTION WIDTH 15.9 % (11.5-14.0); SEGMENTED NEUTROPHILS % (AUTO) 78.1 % (42-78); TOTAL CELLS COUNTED % (AUTO) 100 %; WHITE BLOOD COUNT 6.6 10^3/uL (4.0-10.5)
[2019-04-27 06:15] LABS: ANION GAP 9 (5-19); BLOOD UREA NITROGEN 5 mg/dL (7-20); CALCIUM 7.8 mg/dL (8.4-10.2); CARBON DIOXIDE 24 mmol/L (22-30); CHLORIDE 108 mmol/L (98-107); GLUCOSE 117 mg/dL (75-110); POTASSIUM 4.1 mmol/L (3.6-5.0)
[2019-04-27] MEDS: FLUTICASONE NASAL SPRAY 50 MCG/SPRY 120 SPRAY/16 GM NASL SCH ×2 (10:57→21:44)
[2019-04-27] MEDS ORDERED: (PENDING PHARMACY ID) (Ondansetron Hcl [Ondansetron Hcl] 4 MG) PO PRN (14:47)
[2019-04-27] MEDS ORDERED: NICOTINE 21 MG/24 HR PATCH.TD24 TD PRN (14:47)
[2019-04-27] MEDS ORDERED: ONDANSETRON 4 MG TAB.RAPDIS PO PRN (15:16)
[2019-04-27] MEDS ORDERED: ALBUTEROL SULFATE 0.083% NEB 2.5 MG/3 ML AMPUL NEB PRN (16:14)
[2019-04-27] MEDS ORDERED: GUAIFENESIN SYRP 200 MG/10 ML UDC PO PRN (16:25)
--- NOTE | 2019-04-27 16:26 | PDOC PROGRESS REPORT ---
Subjective Progress Note for:: 04/27/19 Subjective:: ALLYSON OVERTON is a 53 year old female with a past medical history of chronic pain on COPD, chronic bronchitis, tobacco, hypertension chronic sharp left-sided chest pain on Suboxone admitted for pneumonia with hypotension (r/t narcotics; reversed with narcan). The patient was seen on afternoon rounds. She was found sitting upright in bed, comfortably, on room air. She was noted to be speaking with a family member in full sentences with easy and unlabored breathing. She does report that she is feeling much better today, though with increased dyspnea with minimal activity. She reports that after returning from the restroom it takes several minutes for her to catch her breath. She also reports continued left posterior chest wall pain that worsens with inspiration, cough, and movements. She denies fever, chills, cardiac chest pain, orthopnea, abdominal pain, nausea vomiting and diarrhea. She has no questions or concerns at this time. No concerns per nursing. She was offered discharge to home today, however, she states that she feels that she is sick enough that she would return to the emergency department immediately and request to remain in-house 1 more day. Reason For Visit: SEPSIS PNEUMONIA Physical Exam Vital Signs: Temp Pulse Resp BP Pulse Ox 98.5 F 67 16 117/66 90 L 04/27/19 11:52 04/27/19 13:17 04/27/19 13:17 04/27/19 11:52 04/27/19 13:17 Intake & Output 04/26/19 04/27/19 04/28/19 06:59 06:59 06:59 Intake Total 4550 Output Total 0 Balance 4550 Weight 89.5 kg General appearance: PRESENT: no acute distress, disheveled, obese, well- developed, well-nourished Head exam: PRESENT: atraumatic, normocephalic Eye exam: PRESENT: conjunctiva pink, EOMI, PERRLA. ABSENT: scleral icterus Mouth exam: PRESENT: moist, tongue midline Teeth exam: PRESENT: poor dentation Respiratory exam: PRESENT: prolonged expiratory phas, symmetrical, unlabored, wheezes - Scant, other - Room air. ABSENT: rales, rhonchi Cardiovascular exam: PRESENT: RRR, +S1, +S2. ABSENT: diastolic murmur, rubs, systolic murmur Pulses: PRESENT: normal dorsalis pedis pul Vascular exam: PRESENT: normal capillary refill GI/Abdominal exam: PRESENT: normal bowel sounds, soft. ABSENT: distended, guarding, mass, organolmegaly, rebound, tenderness Rectal exam: PRESENT: deferred Extremities exam: PRESENT: full ROM. ABSENT: calf tenderness, clubbing, pedal edema Musculoskeletal exam: PRESENT: ambulatory Neurological exam: PRESENT: alert, awake, oriented to person, oriented to place, oriented to time, oriented to situation, CN II-XII grossly intact. ABSENT: motor sensory deficit Psychiatric exam: PRESENT: appropriate affect, normal mood. ABSENT: homicidal ideation, suicidal ideation Skin exam: PRESENT: dry, intact, warm. ABSENT: cyanosis, rash Results Laboratory Results: 04/27/19 04:49 04/27/19 04:49 04/26/19 04/26/19 04/26/19 16:57 16:57 16:57 WBC 6.7 RBC 5.03 Hgb 14.0 Hct 42.3 MCV 84 MCH 27.9 MCHC 33.2 RDW 16.2 H Plt Count 251 Seg Neutrophils % 41.0 L Sodium 138.5 Potassium 3.4 L Chloride 100 Carbon Dioxide 29 Anion Gap 10 BUN 4 L Creatinine 0.70 Est GFR ( Amer) > 60 Glucose 102 Lactic Acid 1.5 Calcium 9.0 Total Bilirubin 0.6 AST 36 Alkaline Phosphatase 59 Total Protein 7.8 Albumin 4.6 Urine Color Urine Appearance Urine pH Ur Specific [place] Urine Protein Urine Glucose (UA) Urine Ketones Urine Blood Urine Nitrite Ur Leukocyte Esterase Urine WBC (Auto) Urine RBC (Auto) 04/26/19 04/27/19 04/27/19 21:40 04:49 04:49 WBC 6.6 RBC 4.31 Hgb 12.0 Hct 36.3 MCV 84 MCH 27.8 MCHC 33.0 RDW 15.9 H Plt Count 190 Seg Neutrophils % 78.1 H Sodium 140.6 Potassium 4.1 Chloride 108 H Carbon Dioxide 24 Anion Gap 9 BUN 5 L Creatinine 0.56 Est GFR ( Amer) > 60 Glucose 117 H Lactic Acid Calcium 7.8 L Total Bilirubin AST Alkaline Phosphatase Total Protein Albumin Urine Color YELLOW Urine Appearance CLEAR Urine pH 6.0 Ur Specific [place] 1.050 Urine Protein NEGATIVE Urine Glucose (UA) NEGATIVE Urine Ketones NEGATIVE Urine Blood SMALL H Urine Nitrite NEGATIVE Ur Leukocyte Esterase NEGATIVE Urine WBC (Auto) 1 Urine RBC (Auto) 1 04/26/19 04/26/19 16:57 16:57 Troponin I < 0.012 NT-Pro-B Natriuret Pep 60 Impressions: Chest X-Ray 04/26/19 16:47 IMPRESSION: No acute pulmonary findings. Chest/Abdomen CTA 04/26/19 19:28 IMPRESSION: Bilateral interstitial pulmonary thickening, with hazy opacity in the lungs bilaterally. Findings may represent alveolitis/pneumonia superimposed on chronic interstitial lung disease. Mild mediastinal and bilateral hilar adenopathy. Fatty liver. Assessment and Plan - Diagnosis (1) COPD (chronic obstructive pulmonary disease) Qualifiers: COPD type: COPD with acute exacerbation Qualified Code(s): J44.1 - Chronic obstructive pulmonary disease with (acute) exacerbation Is this a current diagnosis for this admission?: Yes Plan: Patient is admitted to [facility] on continuous cardiac telemetry. Will provide supplemental oxygen as needed to maintain saturations greater than 89%. Start on scheduled and as needed nebulizer treatments. I have started p.o. prednisone. Mucinex twice daily. Robitussin as needed. Pulmonary toilet is encouraged with incentive spirometer, flutter valve, and early ambulation. (2) Pneumonia Qualifiers: Pneumonia type: due to unspecified organism Laterality: unspecified laterality Lung location: unspecified part of lung Qualified Code(s): J18.9 - Pneumonia, unspecified organism Is this a current diagnosis for this admission?: Yes Plan: Chest x-ray was negative for acute findings. CTA chest showed alveolitis versus pneumonia versus chronic interstitial lung disease. Patient has been afebrile x24 hours with normal leukocytosis. Blood cultures are pending. Sputum culture has not been obtained. She was empirically placed on IV Levaquin; as she has improved clinically, will transition to p.o. Levaquin today. Remaining management as above. (3) Adrenal insufficiency Is this a current diagnosis for this admission?: Yes Plan: Low suspicion for adrenal insufficiency. The patient was hypotensive with a random cortisol of 1.7. Her blood pressure did improve following Narcan. She received one-time dose of hydrocortisone; now on p.o. prednisone for COPD exacerbation. Follow-up with primary care provider for further evaluation. (4) Chronic pain Qualifiers: Chronic pain type: chronic pain syndrome Qualified Code(s): G89.4 - Chronic pain syndrome Is this a current diagnosis for this admission?: Yes Plan: Verified at baseline, continue home dose Suboxone Limit additional narcotic medications. (5) Hypotension Qualifiers: Hypotension type: unspecified hypotension type Qualified Code(s): I95.9 - Hypotension, unspecified Is this a current diagnosis for this admission?: Yes Plan: Resolved. Without tachycardia without distress, secondary to Suboxone. Unimproved following 4 L of normal saline reversed by Narcan trial. No further episodes of hypotension. (6) Tobacco use disorder, severe, dependence Is this a current diagnosis for this admission?: Yes Plan: Smoking cessation encouraged. Nicotine replacement therapies provided. - Time Time Spent with patient: 25-34 minutes Medications reviewed and adjusted accordingly: Yes Anticipated discharge: Home Within: within 24 hours
[2019-04-27] MEDS: PREDNISONE 20 MG TABLET PO SCH (17:04)
[2019-04-27] MEDS: GABAPENTIN 300 MG CAPSULE PO SCH (17:04)
[2019-04-27] MEDS ORDERED: (PENDING PHARMACY ID) (Buprenorphine Hcl [Subutex 8 Mg Sublingual Tablet] 1 TAB) SL SCH (18:00)
[2019-04-27] MEDS: BUPRENORPHINE HCL 2 MG SUBLINGUAL TABLET SL SCH (18:02)
[2019-04-27] MEDS: GUAIFENESIN 600 MG TABLET.SA PO SCH (21:45)
[2019-04-27] MEDS ORDERED: LEVOFLOXACIN 750 MG/D5W RTU 750 MG/150 ML RTUPB IV SCH (22:00)
[2019-04-27] MEDS ORDERED: (PENDING PHARMACY ID) (Trazodone Hcl [Desyrel] 150 MG) PO SCH (22:00)
[2019-04-27] MEDS ORDERED: BUPRENORPHINE HCL 2 MG SUBLINGUAL TABLET SL SCH (22:00)
[2019-04-27] MEDS ORDERED: TRAZODONE HCL 50 MG TABLET PO SCH (22:00)
[2019-04-28] MEDS: GABAPENTIN 300 MG CAPSULE PO SCH ×2 (01:11→05:54)
[2019-04-28] MEDS: HEPARIN SOD (PORCINE) 5,000 UNIT/ML 1 ML VIAL SUBCUT SCH (05:55)
[2019-04-28] MEDS: BUPRENORPHINE HCL 2 MG SUBLINGUAL TABLET SL SCH (05:55)
[2019-04-28] MEDS: IPRATROPIUM/ALBUTEROL 0.5-2.5 MG/3 ML AMPUL NEB SCH (08:13)
[2019-04-28] MEDS: GUAIFENESIN 600 MG TABLET.SA PO SCH (09:38)
[2019-04-28] MEDS: PREDNISONE 20 MG TABLET PO SCH (09:38)
[2019-04-28] MEDS: FLUTICASONE NASAL SPRAY 50 MCG/SPRY 120 SPRAY/16 GM NASL SCH (09:39)
[2019-04-28] MEDS ORDERED: LEVOFLOXACIN 750 MG TABLET PO SCH (10:00)
[2019-04-28] MEDS ORDERED: FLUOXETINE HCL 20 MG CAPSULE PO SCH (10:00)
[2019-04-28] MEDS ORDERED: FLUTICASONE/VILANTEROL 200-25 MCG/DOSE IH SCH (10:00)
--- NOTE | 2019-04-28 13:14 | PDOC DISCHARGE SUMMARY ---
Impression - Admit/DC Date/PCP Admission Date/Primary Care Provider: 04/26/19 23:24 Discharge Date: 04/28/19 - Additional Information Resuscitation Status: Full Code Discharge Diet: As Tolerated Discharge Activity: Activity As Tolerated, Balance Activity w/Rest Referrals: [facility] [Provider Group] - 04/30/19 2:00 pm ( ) Prescriptions: Prednisone [Deltasone 20 mg Tablet] 20 mg PO DAILY 14 Days #14 tablet Levofloxacin [Levaquin 750 mg Tablet] 750 mg PO DAILY #7 tablet Budesonide/Formoterol Fumarate [Symbicort HFA 160-4.5 mcg Inhaler 6 gm] 2 puff IH Q12 #1 inhaler Home Medications: Buprenorphine HCl [Subutex 8 mg Sublingual Tablet] 1 tab SL BID 08/26/18 Fluoxetine HCl [Prozac 20 mg Capsule] 60 mg PO DAILY 08/26/18 Gabapentin [Neurontin] 600 mg PO Q6 08/26/18 Hydrochlorothiazide [Hydrodiuril 25 mg Tablet] 25 mg PO DAILY 08/26/18 Nicotine [Nicoderm 21 mg/24 Hr Transderm Patch] 1 each TD DAILYP PRN #30 patch.td24 08/26/18 Trazodone HCl [Desyrel] 150 mg PO QHS 08/26/18 Albuterol Sulfate [Proair HFA Inhalation Aerosol 8.5 gm MDI] 2 puff IH Q4H PRN 04/27/19 Albuterol Sulfate [Ventolin 0.083% Neb 2.5 mg/3 mL Ampul] 1 vial NEB Q4HP PRN 04/27/19 Acetaminophen [Tylenol 325 mg Tablet] 650 mg PO Q4HP PRN tablet 04/28/19 Budesonide/Formoterol Fumarate [Symbicort HFA 160-4.5 mcg Inhaler 6 gm] 2 puff IH Q12 #1 inhaler 04/28/19 Fluticasone Propionate [Flonase Nasal [place] 50 Mcg/[place] 16 gm] 2 spray NASL Q12 spray.pump 04/28/19 Guaifenesin [Mucinex Sr 600 mg Tablet.sa] 600 mg PO Q12 tablet.sa 04/28/19 Levofloxacin [Levaquin 750 mg Tablet] 750 mg PO DAILY #7 tablet 04/28/19 Prednisone [Deltasone 20 mg Tablet] 20 mg PO DAILY 14 Days #14 tablet 04/28/19 History of Present Illiness History of Present Illness: ALLYSON OVERTON is a 53 year old female with a past medical history of chronic pain on COPD, chronic bronchitis, tobacco, hypertension chronic sharp left-sided chest pain on Suboxone resulting in hypotension. In the emergency department she is found to have tachypnea, leukocytosis, a blood pressure of 70/50 without tachycardia. CTA is negative for PE but there are bilateral infiltrates. Unchanged from previous 8 months ago. She receives empiric antibiotics, albuterol and Atrovent, steroids and referred to the hospitalist for admission. She admits to chronic rhinorrhea denies sore throat nausea vomiting or palpitations but admits to her chronic sharp left-sided chest pain. Hospital Course Hospital Course: The patient had an uneventful hospital course. With antibiotic therapy and aggressive nebulizer treatments her pneumonia with COPD exacerbation settled. Her white blood cell count and lactic acid were never elevated. She was hypotensive on admission and this was felt to be due to her opiate therapy and was reversed with Narcan. She was found to have adrenal insufficiency and she will be discharged on chronic prednisone therapy. At follow-up her primary care provider or rn transplant can adjust treatment. Chronic pain-continue current pain management regimen. Defer to outpatient providers for changes in regimen. Tobacco abuse/dependence-continue to encourage cessation. Encourage nicotine patch use to assist with tobacco cessation. Physical Exam Vital Signs: Temp Pulse Resp BP Pulse Ox 97.9 F 71 17 138/72 H 95 04/28/19 03:19 04/28/19 08:13 04/28/19 08:13 04/28/19 03:19 04/28/19 08:13 Intake & Output 04/27/19 04/28/19 04/29/19 06:59 06:59 06:59 Intake Total 4550 2063 Output Total 0 Balance 4550 2063 Weight 89.5 kg 90 kg General appearance: PRESENT: no acute distress Eye exam: PRESENT: conjunctiva pink. ABSENT: scleral icterus Ear exam: PRESENT: normal external ear exam. ABSENT: bleeding, drainage Mouth exam: PRESENT: moist, tongue midline Respiratory exam: PRESENT: clear to auscultation [place], symmetrical, unlabored. ABSENT: prolonged expiratory phas, rales, rhonchi, tachypnea, wheezes Cardiovascular exam: PRESENT: RRR, +S1, +S2. ABSENT: diastolic murmur, systolic murmur GI/Abdominal exam: PRESENT: normal bowel sounds, soft. ABSENT: distended, mass, tenderness Rectal exam: PRESENT: deferred Gentrourinary exam: ABSENT: indwelling catheter Extremities exam: PRESENT: full ROM. ABSENT: pedal edema Musculoskeletal exam: PRESENT: ambulatory, full ROM, normal inspection Neurological exam: PRESENT: alert, awake, oriented to person, oriented to place, oriented to time, oriented to situation, CN II-XII grossly intact. ABSENT: motor sensory deficit Psychiatric exam: PRESENT: flat affect. ABSENT: agitated, anxious, unusual affect Focused psych exam: ABSENT: delusional, paranoid, restlessness Skin exam: PRESENT: dry, normal color, warm. ABSENT: rash Results Laboratory Results: WBC 6.6 10^3/uL (4.0-10.5) 04/27/19 04:49 RBC 4.31 10^6/uL (3.72-5.28) 04/27/19 04:49 Hgb 12.0 g/dL (12.0-15.5) 04/27/19 04:49 Hct 36.3 % (36.0-47.0) 04/27/19 04:49 MCV 84 fl (80-97) 04/27/19 04:49 MCH 27.8 pg (27.0-33.4) 04/27/19 04:49 MCHC 33.0 g/dL (32.0-36.0) 04/27/19 04:49 RDW 15.9 % (11.5-14.0) H 04/27/19 04:49 Plt Count 190 10^3/uL (150-450) 04/27/19 04:49 Lymph % (Auto) 18.9 % (13-45) 04/27/19 04:49 [place] % (Auto) 2.4 % (3-13) L 04/27/19 04:49 Eos % (Auto) 0.2 % (0-6) 04/27/19 04:49 Baso % (Auto) 0.4 % (0-2) 04/27/19 04:49 Absolute Neuts (auto) 5.2 10^3/uL (1.7-8.2) 04/27/19 04:49 Absolute Lymphs (auto) 1.3 10^3/uL (0.5-4.7) 04/27/19 04:49 Absolute Monos (auto) 0.2 10^3/uL (0.1-1.4) 04/27/19 04:49 Absolute Eos (auto) 0.0 10^3/uL (0.0-0.6) 04/27/19 04:49 Absolute Basos (auto) 0.0 10^3/uL (0.0-0.2) 04/27/19 04:49 Seg Neutrophils % 78.1 % (42-78) H 04/27/19 04:49 Sodium 140.6 mmol/L (137-145) 04/27/19 04:49 Potassium 4.1 mmol/L (3.6-5.0) 04/27/19 04:49 Chloride 108 mmol/L (98-107) H 04/27/19 04:49 Carbon Dioxide 24 mmol/L (22-30) 04/27/19 04:49 Anion Gap 9 (5-19) 04/27/19 04:49 BUN 5 mg/dL (7-20) L 04/27/19 04:49 Creatinine 0.56 mg/dL (0.52-1.25) 04/27/19 04:49 Est GFR ( Amer) > 60 (>60) 04/27/19 04:49 Est GFR (MDRD) Non-Af > 60 (>60) 04/27/19 04:49 Glucose 117 mg/dL (75-110) H 04/27/19 04:49 Lactic Acid 1.5 mmol/L (0.7-2.1) 04/26/19 16:57 Calcium 7.8 mg/dL (8.4-10.2) L 04/27/19 04:49 Total Bilirubin 0.6 mg/dL (0.2-1.3) 04/26/19 16:57 Direct Bilirubin 0.0 mg/dL (0.0-0.4) 04/26/19 16:57 Neonat Total Bilirubin Not Reportable 04/26/19 16:57 Neonat Direct Bilirubin Not Reportable 04/26/19 16:57 Neonat Indirect Bili Not Reportable 04/26/19 16:57 AST 36 U/L (14-36) 04/26/19 16:57 ALT 23 U/L (<35) 04/26/19 16:57 Alkaline Phosphatase 59 U/L (38-126) 04/26/19 16:57 Troponin I < 0.012 ng/mL 04/26/19 16:57 NT-Pro-B Natriuret Pep 60 pg/mL (<125) 04/26/19 16:57 Total Protein 7.8 g/dL (6.3-8.2) 04/26/19 16:57 Albumin 4.6 g/dL (3.5-5.0) 04/26/19 16:57 Random Cortisol 1.79 ug/dL (None Established) 04/26/19 16:57 Urine Color YELLOW 04/26/19 21:40 Urine Appearance CLEAR 04/26/19 21:40 Urine pH 6.0 (5.0-9.0) 04/26/19 21:40 Ur Specific [place] 1.050 04/26/19 21:40 Urine Protein NEGATIVE mg/dL (NEGATIVE) 04/26/19 21:40 Urine Glucose (UA) NEGATIVE mg/dL (NEGATIVE) 04/26/19 21:40 Urine Ketones NEGATIVE mg/dL (NEGATIVE) 04/26/19 21:40 Urine Blood SMALL (NEGATIVE) H 04/26/19 21:40 Urine Nitrite NEGATIVE (NEGATIVE) 04/26/19 21:40 Urine Bilirubin NEGATIVE (NEGATIVE) 04/26/19 21:40 Urine Urobilinogen NEGATIVE mg/dL (<2.0) 04/26/19 21:40 Ur Leukocyte Esterase NEGATIVE (NEGATIVE) 04/26/19 21:40 Urine WBC (Auto) 1 /HPF 04/26/19 21:40 Urine RBC (Auto) 1 /HPF 04/26/19 21:40 U Hyaline Cast (Auto) 1 /LPF 04/26/19 21:40 Squamous Epi Cells Auto 3 /HPF 04/26/19 21:40 Urine Mucus (Auto) RARE /LPF 04/26/19 21:40 Urine Ascorbic Acid NEGATIVE (NEGATIVE) 04/26/19 21:40 Urine Opiates Screen NEGATIVE 04/26/19 21:40 Urine Methadone Screen NEGATIVE 04/26/19 21:40 Ur Barbiturates Screen NEGATIVE 04/26/19 21:40 Ur Phencyclidine Scrn NEGATIVE 04/26/19 21:40 Ur Amphetamines Screen NEGATIVE 04/26/19 21:40 U Benzodiazepines Scrn NEGATIVE 04/26/19 21:40 Urine Cocaine Screen NEGATIVE 04/26/19 21:40 U Marijuana (THC) Screen NEGATIVE 04/26/19 21:40 Influenza A (Rapid) NEGATIVE (NEGATIVE) 04/26/19 18:00 Influenza B (Rapid) NEGATIVE (NEGATIVE) 04/26/19 18:00 04/26/19 04/26/19 16:57 16:57 Troponin I < 0.012 NT-Pro-B Natriuret Pep 60 Impressions: Chest X-Ray 04/26/19 16:47 IMPRESSION: No acute pulmonary findings. Chest/Abdomen CTA 04/26/19 19:28 IMPRESSION: Bilateral interstitial pulmonary thickening, with hazy opacity in the lungs bilaterally. Findings may represent alveolitis/pneumonia superimposed on chronic interstitial lung disease. Mild mediastinal and bilateral hilar adenopathy. Fatty liver. Plan Health Concerns: Patient would significantly benefit from cessation of tobacco. She is also found to have adrenal insufficiency and will need follow-up as an outpatient. Plan of Treatment: Discharge on antibiotic therapy as well as inhalers. She has nebulizer treat ments at home. Prednisone therapy will be for adrenal insufficiency not her COPD. She will complete her antibiotics for pneumonia. Goals: Would significantly benefit from tobacco cessation and this should prompt better control of COPD. Antibiotic therapy should achieve resolution of pneumonia. Adrenal insufficiency needs to be addressed as an outpatient. Time Spent: Greater than 30 Minutes Stroke Is this a Stroke Patient?: No Acute Heart Failure - Is this a Heart Failure Patient?: No
[2019-04-28 13:45] VITALS: BP 94/64
== END 2019-04-28 14:00 | disposition home or self-care (01) | DRG 194 ==
LOC: ER 16:27 → EH 23:24 → 3N 04-27 02:41
PROVIDERS: ADMIT Internal Medicine; ATTEND Internal Medicine
DX: J18.9 Pneumonia, unspecified organism (principal); J44.1 Chronic obstructive pulmonary disease with (acute) exacerbation; E27.40 Unspecified adrenocortical insufficiency; J44.0 Chronic obstructive pulmonary disease with (acute) lower respiratory infection; I95.9 Hypotension, unspecified; G89.4 Chronic pain syndrome; R07.89 Other chest pain; I10 Essential (primary) hypertension; T50.7X5A Adverse effect of analeptics and opioid receptor antagonists, initial encounter; F32.9 Major depressive disorder, single episode, unspecified; I95.2 Hypotension due to drugs; M19.90 Unspecified osteoarthritis, unspecified site; Z88.0 Allergy status to penicillin; Z88.1 Allergy status to other antibiotic agents; Z88.8 Allergy status to other drugs, medicaments and biological substances; Z85.3 Personal history of malignant neoplasm of breast; Z79.891 Long term (current) use of opiate analgesic; Z79.51 Long term (current) use of inhaled steroids; Z82.49 Family history of ischemic heart disease and other diseases of the circulatory system
CPT/HCPCS: 36415; 71046; 71275; 80048; 80053; 80307; 81001; 82533; 83605; 83880; 84484; 85025; 87040; 87804; 93005; 93010; 94640; 94667; 94668; 94799; 96361; 96365; 96375; 99285; J0571; J1644; J1720; J1885; J1956; J2405; J3490; J7030; J7512; J7620

== ENCOUNTER 2019-05-13 18:14 | Emergency (ER) | payer SELFPAY ==
--- NOTE | 2019-05-13 18:33 | ER Document Report ---
ED Medical Screen (RME) - General Chief Complaint: Shortness Of Breath Stated Complaint: SHORTNESS OF BREATH Time Seen by Provider: 05/13/19 18:30 Mode of Arrival: Ambulatory Information source: Patient Notes: 53-year-old female presented to ED for cough cold congestion fever. She states 2 weeks ago she was admitted for pneumonia she was admitted for 1 day discharged home she follow-up with her primary care doctor the next day she was feeling better that they did not have a fever then soon after that she became cough congestion fevers again. She states she has not been well since that admission. She does have a history of pneumonia COPD and back pain. She states since her hospitalization she has been in her house and has not been out and has not been in any contact with any coronavirus victims. She states she does smoke about a fourth of a pack she is trying to quit does not use any alcohol or drugs. She lives alone and does not work. Lungs are clear at this time. She does have body aches all over pain level 4 out of 5. I have greeted and performed a rapid initial assessment of this patient. A comprehensive ED assessment and evaluation of the patient, analysis of test results and completion of medical decision making process will be conducted by an additional ED providers. TRAVEL OUTSIDE OF THE [place] IN LAST 30 DAYS: No - Related Data Allergies/Adverse Reactions: bee venom protein (honey bee) Allergy (Verified 04/27/19 10:23) Anaphylaxis ceftriaxone [From Rocephin] Allergy (Verified 04/27/19 10:23) Hives erythromycin base [Erythromycin Base] Allergy (Verified 04/27/19 10:23) Hives naloxone Allergy (Verified 08/25/18 15:04) Anaphylaxis Penicillins Allergy (Verified 04/27/19 10:23) Hives Past Medical History - Past Medical History Cardiac Medical History: Reports: Hx Hypertension Denies: Hx Congestive Heart Failure, Hx Coronary Artery Disease, Hx DVT, Hx Heart Attack, Hx Hypercholesterolemia, Hx Pulmonary Embolism Pulmonary Medical History: Reports: Hx Asthma, Hx Bronchitis, Hx COPD, Hx Pneumonia Neurological Medical History: Reports: Hx Migraine. Denies: Hx Seizures Endocrine Medical History: Denies: Hx Diabetes Mellitus Type 1, Hx Diabetes Mellitus Type 2, Hx Hyperthyroidism, Hx Hypothyroidism Renal/ Medical History: Denies: Hx Peritoneal Dialysis Malignancy Medical History: Reports: Hx Breast Cancer - Bilateral GI Medical History: Denies: Hx Cirrhosis, Hx Hepatitis Musculoskeltal Medical History: Reports Hx Arthritis - Degenerative disc disease, Denies Hx Gout, Reports Hx Musculoskeletal Deformity, Reports Hx Musculoskeletal Trauma - Right MCL right rotator cuff Skin Medical History: Denies Hx Eczema, Denies Hx Psoriasis Psychiatric Medical History: Reports: Hx Depression Infectious Medical History: Denies: Hx Hepatitis Past Surgical History: Reports: Hx Breast Surgery - bilateral, Hx Section - 3, Hx Cholecystectomy, Hx Orthopedic Surgery - Right knee MCL right shoulder rotator cuff - Immunizations Immunizations up to date: Yes Hx Diphtheria, Pertussis, Tetanus Vaccination: Yes Physical Exam - Vital signs Vitals: Temp Pulse Resp BP Pulse Ox 99.5 F 54 L 16 110/77 94 05/13/19 18:20 05/13/19 18:20 05/13/19 18:20 05/13/19 18:20 05/13/19 18:20 Course - Vital Signs Vital signs: Temp Pulse Resp BP Pulse Ox 99.5 F 54 L 16 110/77 94 05/13/19 18:20 05/13/19 18:20 05/13/19 18:20 05/13/19 18:20 05/13/19 18:20
[2019-05-13 19:08] LABS: ABSOLUTE BASOPHILS # (AUTO) 0.1 10^3/uL (0.0-0.2); ABSOLUTE EOSINOPHILS # (AUTO) 0.2 10^3/uL (0.0-0.6); ABSOLUTE LYMPHOCYTES (AUTO) 3.3 10^3/uL (0.5-4.7); ABSOLUTE MONOCYTES (AUTO) 0.6 10^3/uL (0.1-1.4); ABSOLUTE NEUT (AUTO) 6.3 10^3/uL (1.7-8.2); BASOPHILS % (AUTO) 0.6 % (0-2); EOSINOPHILS % (AUTO) 1.7 % (0-6); HEMATOCRIT 40.8 % (36.0-47.0); HEMOGLOBIN 13.6 g/dL (12.0-15.5); LYMPHOCYTES % (AUTO) 31.7 % (13-45); MEAN CORPUSCULAR HEMOGLOBIN 28.1 pg (27.0-33.4); MEAN CORPUSCULAR HGB CONC 33.4 g/dL (32.0-36.0); MEAN CORPUSCULAR VOLUME 84 fl (80-97); MONOCYTES % (AUTO) 5.4 % (3-13); PLATELET COUNT 263 10^3/uL (150-450); RED BLOOD COUNT 4.86 10^6/uL (3.72-5.28); RED CELL DISTRIBUTION WIDTH 16.6 % (11.5-14.0); SEGMENTED NEUTROPHILS % (AUTO) 60.6 % (42-78); TOTAL CELLS COUNTED % (AUTO) 100 %; WHITE BLOOD COUNT 10.4 10^3/uL (4.0-10.5)
--- NOTE | 2019-05-13 19:08 | RADIOLOGY REPORT (SQ) ---
EXAM DESCRIPTION: CHEST 2 VIEWS COMPLETED DATE/TIME: 05/13/2019 6:53 pm REASON FOR STUDY: Cough congestion short of breath COMPARISON: 04/26/2019 EXAM PARAMETERS: NUMBER OF VIEWS: two views TECHNIQUE: Digital Frontal and Lateral radiographic views of the chest acquired. RADIATION DOSE: NA LIMITATIONS: none FINDINGS: LUNGS AND PLEURA: No opacities, masses or pneumothorax. No pleural effusion. MEDIASTINUM AND HILAR STRUCTURES: No masses or contour abnormalities. HEART AND VASCULAR STRUCTURES: Heart normal size. No evidence for failure. BONES: No acute findings. HARDWARE: None in the chest. OTHER: No other significant finding. IMPRESSION: NO ACUTE RADIOGRAPHIC FINDING IN THE CHEST. TECHNICAL DOCUMENTATION: JOB ID: [id number] 2010 [employer]- All Rights Reserved Reading location - IP/workstation name: [email or web address]
--- NOTE | 2019-05-13 19:14 | ER Document Report ---
ED Respiratory Problem - General Chief Complaint: Breathing Difficulty Stated Complaint: SHORTNESS OF BREATH Time Seen by Provider: 05/13/19 18:30 Mode of Arrival: Ambulatory Notes: CHIEF COMPLAINT: Continued cough and fever HPI: 53-year-old female who is a smoker with a COPD history presenting for evaluation of continued coughing with subjective fevers at home. Patient states that she was admitted to the hospital 3 weeks ago for 1 day for pneumonia. Patient states she was discharged on Levaquin and steroids and felt better for 10 days but once the medication stopped she started to feel as if she had increasing cough and fever. Has not been back into her PCP for evaluation in the last 2 weeks that she has had the subjective symptoms. Denies shortness of breath. Has continued to smoke despite her illness. Patient has been using her albuterol at home twice daily only. Patient states that she did have a contact with someone who had an upper respiratory infection 4 days ago but had felt subjectively not well prior to this. Patient denies chest pain abdominal pain nausea vomiting. ROS: See HPI - all other systems were reviewed and are otherwise negative Constitutional: Subjective fever Eyes: no drainage, no blurred vision ENT: no runny nose, no sore throat Cardiovascular: no chest pain Resp: no SOB, positive cough GI: no vomiting, no diarrhea, no abdominal pain : no dysuria Integumentary: no rash Allergy: no hives Musculoskeletal: no extremity pain or swelling Neurological: no numbness/tingling, no weakness MEDICATIONS: I agree with the patient medications as charted by the RN. ALLERGIES: I agree with the allergies as charted by the RN. PAST MEDICAL HISTORY/PAST SURGICAL HISTORY: Reviewed and agree as charted by RN. SOCIAL HISTORY: Reviewed and agree as charted by RN. FAMILY HISTORY: No significant familial comorbid conditions directly related to patient complaint EXAM: Reviewed vital signs as charted by RN. CONSTITUTIONAL: Alert and oriented and responds appropriately to questions. Well-appearing; well-nourished HEAD: Normocephalic; atraumatic EYES: PERRL; Conjunctivae clear, sclerae non-icteric ENT: normal nose; no rhinorrhea; moist mucous membranes; pharynx without lesions noted, no uvula edema or deviation, no tonsillar hypertrophy, phonation normal NECK: Supple without meningismus; non-tender; no cervical lymphadenopathy, no masses CARD: RRR; no murmurs, no clicks, no rubs, no gallops; symmetric distal pulses RESP: Normal chest excursion without splinting or tachypnea; breath sounds noted to have expiratory wheezing in the right upper lobe, no rhonchi, no rales, pulse oximetry 94% on room air not hypoxic. ABD/GI: Normal bowel sounds; non-distended; soft, non-tender, no rebound, no guarding; no palpable organomegaly or masses. BACK: The back appears normal and is non-tender to palpation, there is no CVA tenderness EXT: Normal ROM in all joints; non-tender to palpation; no cyanosis, no effusions, no edema SKIN: Normal color for age and race; warm; dry; good turgor; no acute lesions noted NEURO: Moves all extremities equally; Motor and sensory function intact PSYCH: The patient's mood and manner are appropriate. Grooming and personal hygiene are appropriate. MDM: 53-year-old female with upper respiratory symptoms for 2 weeks and she stopped antibiotics and steroids. She has some wheezing in the right upper lobe. On review of her records she did not have significant leukocytosis previously. Labs are pending tonight. Chest x-ray appears unchanged on my review. Patient had a CT previously which showed possible alveolitis versus pneumonia versus COPD exacerbation. Not a definitive pneumonia. Was treated as such though. Will give patient Decadron and breathing treatment here. Low suspicion for COVID19 infection as she has essentially been in her home for the last several weeks, reports 2 weeks of symptoms after finishing antibiotics. TRAVEL OUTSIDE OF THE [place] IN LAST 30 DAYS: No - Related Data Allergies/Adverse Reactions: bee venom protein (honey bee) Allergy (Verified 04/27/19 10:23) Anaphylaxis ceftriaxone [From Rocephin] Allergy (Verified 04/27/19 10:23) Hives erythromycin base [Erythromycin Base] Allergy (Verified 04/27/19 10:23) Hives naloxone Allergy (Verified 08/25/18 15:04) Anaphylaxis Penicillins Allergy (Verified 04/27/19 10:23) Hives Home Medications: copd. pneumonia Past Medical History - General Information source: Patient - Social History Smoking Status: Current Every Day Smoker Chew tobacco use (# tins/day): No Frequency of alcohol use: None Drug Abuse: None Family History: Hypertension Patient has suicidal ideation: No Patient has homicidal ideation: No - Past Medical History Cardiac Medical History: Reports: Hx Hypertension Denies: Hx Congestive Heart Failure, Hx Coronary Artery Disease, Hx DVT, Hx Heart Attack, Hx Hypercholesterolemia, Hx Pulmonary Embolism Pulmonary Medical History: Reports: Hx Asthma, Hx Bronchitis, Hx COPD, Hx Pneumonia Neurological Medical History: Reports: Hx Migraine. Denies: Hx Seizures Endocrine Medical History: Denies: Hx Diabetes Mellitus Type 1, Hx Diabetes Mellitus Type 2, Hx Hyperthyroidism, Hx Hypothyroidism Renal/ Medical History: Denies: Hx Peritoneal Dialysis Malignancy Medical History: Reports: Hx Breast Cancer - Bilateral GI Medical History: Denies: Hx Cirrhosis, Hx Hepatitis Musculoskeletal Medical History: Reports Hx Arthritis - Degenerative disc disease, Denies Hx Gout, Reports Hx Musculoskeletal Deformity, Reports Hx Musculoskeletal Trauma - Right MCL right rotator cuff Skin Medical History: Denies Hx Eczema, Denies Hx Psoriasis Psychiatric Medical History: Reports: Hx Depression Infectious Medical History: Denies: Hx Hepatitis Past Surgical History: Reports: Hx Breast Surgery - bilateral, Hx Section - 3, Hx Cholecystectomy, Hx Orthopedic Surgery - Right knee MCL right shoulder rotator cuff - Immunizations Immunizations up to date: Yes Hx Diphtheria, Pertussis, Tetanus Vaccination: Yes Physical Exam - Vital signs Vitals: Temp Pulse Resp BP Pulse Ox 99.5 F 54 L 16 110/77 94 05/13/19 18:20 05/13/19 18:20 05/13/19 18:20 05/13/19 18:20 05/13/19 18:20 Course - Re-evaluation Re-evalutation: 05/13/19 21:09 Patient feels better after steroids and breathing treatment. This is likely spastic in nature. She does not have a fever here. Will discharge home on a short course of Decadron, she has albuterol inhaler and nebulizer at home for use will call her PCP tomorrow for follow-up - Vital Signs Vital signs: Temp Pulse Resp BP Pulse Ox 99.5 F 54 L 16 110/77 94 05/13/19 18:20 05/13/19 18:20 05/13/19 18:20 05/13/19 18:20 05/13/19 18:20 - Laboratory Result Diagrams: 05/13/19 18:45 05/13/19 18:45 Laboratory results interpreted by me: 05/13/19 05/13/19 05/13/19 18:45 18:45 18:45 RDW 16.6 H Carbon Dioxide 32 H Urine Blood SMALL H Urine Urobilinogen 2.0 H Discharge - Discharge Clinical Impression: Acute bronchospasm due to viral infection Condition: Stable Disposition: HOME, SELF-CARE Additional Instructions: Continue your breathing treatments every 4 hours. Take the Decadron daily as prescribed, follow-up with your PCP tomorrow as discussed Prescriptions: Dexamethasone [Decadron 4 Mg Tablet] 4 mg PO DAILY #5 tablet
[2019-05-13] MEDS ORDERED: IPRATROPIUM/ALBUTEROL 0.5-2.5 MG/3 ML AMPUL NEB ONE (19:16)
[2019-05-13] MEDS ORDERED: DEXAMETHASONE 4 MG TABLET PO ONE (19:16)
[2019-05-13 19:20] LABS: APPEARANCE,URINE SLIGHTLY-CLOUDY; BILIRUBIN,URINE NEGATIVE (NEGATIVE); COLOR,URINE YELLOW; GLUCOSE, URINE NEGATIVE (NEGATIVE); KETONES,URINE NEGATIVE (NEGATIVE); PROTEIN,URINE NEGATIVE (NEGATIVE)
[2019-05-13 19:28] LABS: ALKALINE PHOSPHATASE 58 U/L (38-126); ANION GAP 7 (5-19); ASPARTATE AMINO TRANSFERASE 26 U/L (14-36); BILIRUBIN,TOTAL 0.3 mg/dL (0.2-1.3); BLOOD UREA NITROGEN 7 mg/dL (7-20); CALCIUM 9.2 mg/dL (8.4-10.2); CARBON DIOXIDE 32 mmol/L (22-30); CHLORIDE 100 mmol/L (98-107); GLUCOSE 105 mg/dL (75-110); POTASSIUM 4.1 mmol/L (3.6-5.0); TOTAL PROTEIN 6.9 g/dL (6.3-8.2)
[2019-05-13] MEDS ORDERED: KETOROLAC TROMETHAMINE 60 MG/2 ML SDV IM ONE (20:27)
[2019-05-13 20:58] LABS: A TYPE INFLUENZA AG NEGATIVE (NEGATIVE); B INFLUENZA AG NEGATIVE (NEGATIVE)
[2019-05-13 21:41] VITALS: BP 117/81
== END 2019-05-13 21:46 | disposition home or self-care (01) ==
LOC: ER 18:14
DX: B34.9 Viral infection, unspecified (principal); J98.01 Acute bronchospasm; R05 Cough; J44.9 Chronic obstructive pulmonary disease, unspecified; F17.200 Nicotine dependence, unspecified, uncomplicated; I10 Essential (primary) hypertension; Z87.01 Personal history of pneumonia (recurrent); Z79.899 Other long term (current) drug therapy; Z85.3 Personal history of malignant neoplasm of breast; Z87.892 Personal history of anaphylaxis; Z91.030 Bee allergy status; Z88.8 Allergy status to other drugs, medicaments and biological substances; Z88.1 Allergy status to other antibiotic agents; Z88.0 Allergy status to penicillin
CPT/HCPCS: 94640; 99285; 96372; 36415; 83690; 85025; 80053; 81001; 87804; 71046; J8540; J1885; J7620

== ENCOUNTER 2019-05-20 16:47 | Inpatient (IN) | payer SELFPAY ==
--- NOTE | 2019-05-20 17:09 | ER Document Report ---
ED General - General Chief Complaint: Fever Stated Complaint: FEVER Time Seen by Provider: 05/20/19 17:08 Mode of Arrival: Ambulatory Information source: Patient TRAVEL OUTSIDE OF THE [place] IN LAST 30 DAYS: No - HPI Onset: Other - patient has been sick since April 25 but she was admitted and felt better after treatment. She has felt much worse over the last 3 days however and now has a nasal skin issue Onset/Duration: Gradual Quality of pain: Achy - whol body and also in face Severity: Moderate Pain Level: 3 Associated symptoms: Body/muscle aches, Chills, Nonproductive cough, Fever, Shortness of breath Exacerbated by: Other - Exertion Relieved by: Denies Similar symptoms previously: Yes - with COPD Flare and Pneumonia Recently seen / treated by doctor: Yes - Patient admitted on 04/26/19 for pneumonia, patient seen in the ER on 05/13/19 Notes: 53 year old female with a history of COPD (not on home O2), Possible Adrenal Insufficiency based on previous admissions, Migraines, Breast Cancer, recent admission for Pneumonia on 04/26/19 here in the ER for fevers, dry cough, body aches, redness and swelling of her nose, and pain/pressure in her face for the last 3 days. The patient was admitted 04/26/19 and treated for pneumonia. She ended up going home on a 10 day course of Levaquin and on steroids. She felt much better but then she started to have a cough, shortness of breath, and fevers again and she was evaluated in the ER on 05/13/19 (she tested negative then for COVID19). The patient says she has been staying home except to go shopping for groceries and she denies known sick contacts. Patient says she was shopping 2 days ago and she had sudden onset of chills, body aches, and fevers. The patient also a wound on her nose which seems to be getting worse and causing redness of the skin around it. The patient was febrile, tachycardic, and hypoxic on ER arrival. - Related Data Allergies/Adverse Reactions: bee venom protein (honey bee) Allergy (Verified 04/27/19 10:23) Anaphylaxis ceftriaxone [From Rocephin] Allergy (Verified 04/27/19 10:23) Hives erythromycin base [Erythromycin Base] Allergy (Verified 04/27/19 10:23) Hives naloxone Allergy (Verified 08/25/18 15:04) Anaphylaxis Penicillins Allergy (Verified 04/27/19 10:23) Hives Past Medical History - General Information source: Patient - Social History Smoking Status: Former Smoker - patient quit last week Frequency of alcohol use: Occasional Drug Abuse: None Family History: Hypertension Patient has suicidal ideation: No Patient has homicidal ideation: No - Past Medical History Cardiac Medical History: Reports: Hx Hypertension Denies: Hx Congestive Heart Failure, Hx Coronary Artery Disease, Hx DVT, Hx H eart Attack, Hx Hypercholesterolemia, Hx Pulmonary Embolism Pulmonary Medical History: Reports: Hx Asthma, Hx Bronchitis, Hx COPD, Hx Pneumonia Neurological Medical History: Reports: Hx Migraine. Denies: Hx Seizures Endocrine Medical History: Denies: Hx Diabetes Mellitus Type 1, Hx Diabetes Mellitus Type 2, Hx Hyperthyroidism, Hx Hypothyroidism Renal/ Medical History: Denies: Hx Peritoneal Dialysis Malignancy Medical History: Reports: Hx Breast Cancer - Bilateral GI Medical History: Denies: Hx Cirrhosis, Hx Hepatitis Musculoskeletal Medical History: Reports Hx Arthritis - Degenerative disc disease, Denies Hx Gout, Reports Hx Musculoskeletal Deformity, Reports Hx Musculoskeletal Trauma - Right MCL right rotator cuff Skin Medical History: Denies Hx Eczema, Denies Hx Psoriasis Psychiatric Medical History: Reports: Hx Depression Infectious Medical History: Denies: Hx Hepatitis Past Surgical History: Reports: Hx Breast Surgery - bilateral, Hx Section - 3, Hx Cholecystectomy, Hx Orthopedic Surgery - Right knee MCL right shoulder rotator cuff - Immunizations Immunizations up to date: Yes Hx Diphtheria, Pertussis, Tetanus Vaccination: Yes Review of Systems - Review of Systems Constitutional: Chills, Fever, Weakness EENT: Nose pain - with redness of skin and sore on nose, Throat pain Cardiovascular: No symptoms reported Respiratory: Cough, Short of breath, Wheezing Gastrointestinal: No symptoms reported Genitourinary: No symptoms reported Female Genitourinary: No symptoms reported Musculoskeletal: No symptoms reported Skin: Other - wound on nose with surrounding redness and warmth Hematologic/Lymphatic: No symptoms reported Neurological/Psychological: Headaches -: Yes All other systems reviewed and negative Physical Exam - Vital signs Vitals: Temp Pulse Resp BP Pulse Ox 101.8 F H 130 H 24 H 118/90 H 87 L 05/20/19 16:53 05/20/19 16:53 05/20/19 16:53 05/20/19 16:53 05/20/19 16:53 - Notes Notes: GENERAL: Well-appearing, well-nourished and in no acute distress. HEAD: Atraumatic, normocephalic. EYES: Pupils equal round and reactive to light, extraocular movements intact, sclera anicteric, conjunctiva are normal. ENT: Nares patent, oropharynx clear without exudates. Moist mucous membranes. NECK: Normal range of motion, supple without lymphadenopathy or JVD. LUNGS: Diffuse mild wheezing, decreased air movement. HEART: RTachycardic, normal rhythm without murmurs, rubs or gallops. ABDOMEN: Soft, nontender, normoactive bowel sounds. No guarding, no rebound. No masses appreciated. EXTREMITIES: Normal range of motion, no pitting or edema. No clubbing or cyanosis. NEUROLOGICAL: Cranial nerves II through XII grossly intact. Normal speech, normal gait. PSYCH: Normal mood, normal affect. SKIN: Nose with scab on right side with erythema and warmth and tenderness. Warm, Dry, normal turgor, no rashes or lesions noted. Course - Re-evaluation Re-evalutation: 05/20/19 22:20 The patient arrived in the ER febrile, tachycardic, and mildly hypotensive. She has been admitted recently for pneumonia and she has a history of chronic opiate use and adrenal insufficiency. The patient has what looks like a new infiltrate in her right lower lung. Patient tested negative for influenza again today in the ER and her COVID19 test was negative on 05/13/19. Patient wither has a hospital acquired pneumonia or she contracted COVID19 in the time she was last tested negative. Hospitalist requested some narcan since the patient needed this on her last admission to help increase her BP. Patient had severe muscle cramps after narcan so she likely withdrew. Patient therefore given some morphine. Patient then given 100mg of stress dose steroids and her BP normalized. Patient admitted to a step down bed. - Vital Signs Vital signs: Temp Pulse Resp BP Pulse Ox 99.2 F 130 H 34 H 103/60 97 05/20/19 19:58 05/20/19 16:53 05/20/19 20:50 05/20/19 21:47 05/20/19 20:50 - Laboratory Result Diagrams: 05/20/19 18:00 05/20/19 18:00 Laboratory results interpreted by me: 05/20/19 05/20/19 05/20/19 18:00 18:00 18:00 WBC 18.0 H RDW 16.7 H Absolute Neuts (auto) 13.1 H Carbonic Acid 1.38 H ABG pCO2 45.7 H ABG pO2 74.2 L ABG HCO3 30.7 H ABG Total CO2 32.1 H Sodium 131.1 L Chloride 92 L Carbon Dioxide 33 H - Diagnostic Test Radiology reviewed: Image reviewed, Reports reviewed Critical Care Note - Critical Care Note Total time excluding time spent on procedures (mins): 45 Discharge - Discharge Clinical Impression: Hypoxemia Pneumonia Qualifiers: Pneumonia type: due to unspecified organism Laterality: right Lung location: lo wer lobe of lung Qualified Code(s): J18.9 - Pneumonia, unspecified organism Fever Qualifiers: Fever type: unspecified Qualified Code(s): R50.9 - Fever, unspecified Condition: Fair Disposition: ADMITTED INPATIENT Admitting Provider: Kendrick (Hospitalist) Unit Admitted: [facility]
--- NOTE | 2019-05-20 17:27 | RADIOLOGY REPORT (SQ) ---
EXAM DESCRIPTION: CHEST SINGLE VIEW COMPLETED DATE/TIME: 05/20/2019 5:08 pm REASON FOR STUDY: Fever, SOB COMPARISON: PA and lateral views of the chest from 05/12/2017 EXAM PARAMETERS: NUMBER OF VIEWS: One view. TECHNIQUE: An AP view of the chest was obtained. RADIATION DOSE: NA LIMITATIONS: None. FINDINGS: LUNGS AND PLEURA: Asymmetric parenchymal opacity in the inferior right hemithorax. There is no pleural effusion or pneumothorax MEDIASTINUM AND HILAR STRUCTURES: No mediastinal or hilar contour abnormality. HEART AND VASCULAR STRUCTURES: The cardiac silhouette and pulmonary vasculature are within normal kaminski its. BONES: No acute findings. HARDWARE: None in the chest. OTHER: No other finding. IMPRESSION: Asymmetric parenchymal opacity in the inferior right hemithorax. Clinical correlation t o exclude a right lower lobe pneumonia is recommended. TECHNICAL DOCUMENTATION: JOB ID: [id number] 2010 [employer]- All Rights Reserved Reading location - IP/workstation name: [email or web address]
[2019-05-20] MEDS ORDERED: NORMAL SALINE 1000 ML 1,000 ML IV ONE ×2 (17:37→20:06)
[2019-05-20] MEDS ORDERED: ACETAMINOPHEN 325 MG TABLET PO ONE (17:46)
[2019-05-20] MEDS ORDERED: KETOROLAC TROMETHAMINE INJ/PF 30 MG/1 ML SDV IV ONE (18:04)
[2019-05-20 18:11] LABS: A TYPE INFLUENZA AG NEGATIVE (NEGATIVE); B INFLUENZA AG NEGATIVE (NEGATIVE)
[2019-05-20 18:18] LABS: ABSOLUTE BASOPHILS # (AUTO) 0.1 10^3/uL (0.0-0.2); ABSOLUTE EOSINOPHILS # (AUTO) 0.2 10^3/uL (0.0-0.6); ABSOLUTE LYMPHOCYTES (AUTO) 3.6 10^3/uL (0.5-4.7); ABSOLUTE NEUT (AUTO) 13.1 10^3/uL (1.7-8.2); BASOPHILS % (AUTO) 0.4 % (0-2); EOSINOPHILS % (AUTO) 1.1 % (0-6); HEMATOCRIT 40.1 % (36.0-47.0); HEMOGLOBIN 13.1 g/dL (12.0-15.5); MEAN CORPUSCULAR HEMOGLOBIN 27.4 pg (27.0-33.4); MEAN CORPUSCULAR HGB CONC 32.7 g/dL (32.0-36.0); MEAN CORPUSCULAR VOLUME 84 fl (80-97); MONOCYTES % (AUTO) 5.3 % (3-13); PLATELET COUNT 269 10^3/uL (150-450); RED BLOOD COUNT 4.78 10^6/uL (3.72-5.28); RED CELL DISTRIBUTION WIDTH 16.7 % (11.5-14.0); SEGMENTED NEUTROPHILS % (AUTO) 73.2 % (42-78); TOTAL CELLS COUNTED % (AUTO) 100 %
[2019-05-20 18:21] LABS: ARTERIAL BLOOD BASE EXCESS 5.7 mmol/L; ARTERIAL BLOOD FIO2 2L; ARTERIAL BLOOD H2CO3 1.38 mmol/L (1.05-1.35); ARTERIAL BLOOD HCO3 30.7 mmol/L (20-24); ARTERIAL BLOOD O2 SATURATION 95.3 % (94-98); ARTERIAL BLOOD PCO2 45.7 mmHg (35-45); ARTERIAL BLOOD PH 7.45 (7.35-7.45); ARTERIAL BLOOD PO2 74.2 mmHg (80-100); ARTERIAL BLOOD TOTAL CO2 32.1 mmol/L (21-25)
[2019-05-20 18:37] LABS: ANION GAP 6 (5-19); BLOOD UREA NITROGEN 11 mg/dL (7-20); CALCIUM 8.7 mg/dL (8.4-10.2); CARBON DIOXIDE 33 mmol/L (22-30); CHLORIDE 92 mmol/L (98-107); GLUCOSE 101 mg/dL (75-110); POTASSIUM 4.1 mmol/L (3.6-5.0)
[2019-05-20] MEDS ORDERED: HYDROCORTISONE SOD SUCCINATE INJ/PF 100 MG/2 ML SDV IV ONE ×2 (18:38→20:06)
[2019-05-20] MEDS ORDERED: NALOXONE HCL INJ/PF 0.4 MG/1 ML SDV IV ONE (19:22)
[2019-05-20] MEDS ORDERED: VANCOMYCIN HCL INJ 1000 MG VIAL IV ONE (19:28)
[2019-05-20] MEDS ORDERED: AZTREONAM INJ 1 GM VIAL IV ONE (19:29)
[2019-05-20] MEDS ORDERED: MORPHINE SULFATE 10 MG/ML INJ IV ONE (20:56)
[2019-05-20] MEDS ORDERED: NALOXONE HCL INJ/PF 0.4 MG/1 ML SDV IV PRN (22:24)
[2019-05-20] MEDS ORDERED: ACETAMINOPHEN 325 MG TABLET PO PRN (22:28)
[2019-05-20] MEDS ORDERED: IPRATROPIUM/ALBUTEROL 0.5-2.5 MG/3 ML AMPUL NEB PRN (22:28)
[2019-05-20] MEDS ORDERED: GUAIFENESIN SYRP 200 MG/10 ML UDC PO PRN (22:28)
[2019-05-20] MEDS ORDERED: NORMAL SALINE 1000 ML 1,000 ML IV SCH (22:30)
[2019-05-20] MEDS ORDERED: VANCOMYCIN HCL 0 MG in DEXTROSE 5%-WATER 250 ML IV NR (22:30)
[2019-05-20] MEDS ORDERED: FLUTICASONE NASAL SPRAY 50 MCG/SPRY 120 SPRAY/16 GM NASL SCH (22:30)
[2019-05-20] MEDS ORDERED: AZTREONAM INJ 1 GM VIAL IV SCH (22:45)
[2019-05-20] MEDS: GUAIFENESIN 600 MG TABLET.SA PO SCH (23:30)
[2019-05-20] MEDS: GABAPENTIN 300 MG CAPSULE PO SCH (23:30)
[2019-05-20] MEDS: NORMAL SALINE 1000 ML 1,000 ML IV PRN (23:45)
[2019-05-20] MEDS ORDERED: INFLUENZA QUAD (6MOS+) 2019-20 VAC 0.5 ML SYR IM ONE (23:58)
[2019-05-21] MEDS ORDERED: IPRATROPIUM/ALBUTEROL 0.5-2.5 MG/3 ML AMPUL NEB SCH
[2019-05-21] MEDS ORDERED: VANCOMYCIN HCL INJ 1000 MG VIAL ONE (02:31)
--- NOTE | 2019-05-21 04:57 | PDOC H&P ---
History of Present Illness Admission Date/PCP: 05/20/19 19:47 [facility] Patient complains of: Fever and shortness of breath History of Present Illness: ALLYSON OVERTON is a 53 year old female with a past medical history of Suboxone dependent chronic pain, COPD, chronic bronchitis, migraine headache, resolved breast cancer, recent tobacco cessation and recent pneumonia requiring hospitalization 3 weeks ago. She was discharged on 10 days of Levaquin and since was significantly improved but had a return of symptoms prompting evaluation in the emergency department on May 12 discharged home with presumptive coven 19 which was negative. Symptoms worsen prompting her to seek primary care evaluation. It seems she was diagnosed with bronchitis and placed on Decadron daily. She returns with fever tachypnea and small pustule on the nose. In the emergency department she is found hypoxic with hypotension with leukocytosis and a possible right-sided infiltrate new from previous. Her hypotension was treated with 3 L of normal saline without significant improvement following Narcan 0.8 her hypotension resolved instantaneously. Per Dr. Shepard she became angry insisting on leaving AGAINST MEDICAL ADVICE but agrees to remain after IV morphine is administered. Previous admission was complicated by COPD with bronchitis in addition to Suboxone induced hypotension which also resolved with Narcan. Past Medical History Cardiac Medical History: Reports: Hypertension Denies: Congestive Heart Failure, Coronary Artery Disease, DVT, Myocardial Infarction, Hyperlipidema, Pulmonary Embolism Pulmonary Medical History: Reports: Asthma, Bronchitis, Chronic Obstructive Pulmonary Disease (COPD), Pneumonia Neurological Medical History: Reports: Migraine Denies: Seizures Endocrine Medical History: Denies: Diabetes Mellitus Type 1, Diabetes Mellitus Type 2, Hyperthyroidism, Hypothyroidism Malignancy Medical History: Reports: Breast Cancer - Bilateral GI Medical History: Denies: Cirrhosis, Hepatitis Musculoskeltal Medical History: Reports: Arthritis - Degenerative disc disease, Other - Opiate dependent chronic pain Denies: Gout Skin Medical History: Denies: Eczema, Psoriasis Psychiatric Medical History: Reports: Depression, Tobacco Dependency Hematology: Denies: Anemia, Bleeding Tendencies Past Surgical History Past Surgical History: Reports: Section - 3, Cholecystectomy, Orthopedic Surgery - Right knee MCL right shoulder rotator cuff Social History Information Source: Patient Smoking Status: Former Smoker Cigarettes Packs Per Day: 1 Electronic Cigarette use?: No Last Time Smoked: 05/17/19 Frequency of Alcohol Use: None Hx Recreational Drug Use: Yes Drugs: None Hx Prescription Drug Abuse: No - Advance Directive Resuscitation Status: Full Code Family History Family History: Hypertension Parental Family History Reviewed: Yes Children Family History Reviewed: Yes Sibling(s) Family History Reviewed.: Yes Medication/Allergy Home Medications: Budesonide/Formoterol Fumarate [Symbicort HFA 160-4.5 mcg Inhaler 6 gm] 2 puff IH Q12 05/20/19 Fluoxetine HCl [Prozac 20 mg Capsule] 60 mg PO DAILY 05/20/19 Fluticasone Propionate [Flonase Allergy Relief] 2 spray NASL Q12 05/20/19 Gabapentin [Neurontin] 600 mg PO Q6 05/20/19 Allergies/Adverse Reactions: bee venom protein (honey bee) Allergy (Verified 04/27/19 10:23) Anaphylaxis ceftriaxone [From Rocephin] Allergy (Verified 04/27/19 10:23) Hives erythromycin base [Erythromycin Base] Allergy (Verified 04/27/19 10:23) Hives naloxone Allergy (Verified 08/25/18 15:04) Anaphylaxis Penicillins Allergy (Verified 04/27/19 10:23) Hives Review of Systems Constitutional: ABSENT: chills, fever(s), headache(s), weight gain, weight loss Eyes: ABSENT: visual disturbances Ears: ABSENT: hearing changes Cardiovascular: ABSENT: chest pain, dyspnea on exertion, edema, orthropnea, pal pitations Respiratory: PRESENT: as per HPI, cough, dyspnea. ABSENT: hemoptysis, sputum Gastrointestinal: ABSENT: abdominal pain, constipation, diarrhea, hematemesis, hematochezia, nausea, vomiting Genitourinary: ABSENT: dysuria, hematuria Musculoskeletal: ABSENT: joint swelling Integumentary: ABSENT: rash, wounds Neurological: ABSENT: abnormal gait, abnormal speech, confusion, dizziness, focal weakness, syncope Psychiatric: ABSENT: anxiety, depression, homidical ideation, suicidal ideation Endocrine: ABSENT: cold intolerance, heat intolerance, polydipsia, polyuria Hematologic/Lymphatic: ABSENT: easy bleeding, easy bruising Physical Exam Vital Signs: Temp Pulse Resp BP Pulse Ox 98.9 F 73 17 127/79 H 93 05/20/19 23:06 05/21/19 02:00 05/20/19 23:06 05/20/19 23:06 05/20/19 23:06 Intake & Output 05/19/19 05/20/19 05/21/19 11:59 11:59 11:59 Intake Total 1250 Balance 1250 Weight 87.5 kg General appearance: PRESENT: no acute distress, well-developed, well-nourished Head exam: PRESENT: atraumatic, normocephalic Eye exam: PRESENT: conjunctiva pink, EOMI, PERRLA. ABSENT: scleral icterus Ear exam: PRESENT: normal external ear exam Mouth exam: PRESENT: moist, tongue midline Neck exam: ABSENT: carotid bruit, JVD, lymphadenopathy, thyromegaly Respiratory exam: PRESENT: crackles, prolonged expiratory phas. ABSENT: rales, rhonchi, wheezes Cardiovascular exam: PRESENT: RRR. ABSENT: diastolic murmur, rubs, systolic murmur Pulses: PRESENT: normal dorsalis pedis pul Vascular exam: PRESENT: normal capillary refill GI/Abdominal exam: PRESENT: normal bowel sounds, soft. ABSENT: distended, guarding, mass, organolmegaly, rebound, tenderness Rectal exam: PRESENT: deferred Extremities exam: PRESENT: full ROM. ABSENT: calf tenderness, clubbing, pedal edema Neurological exam: PRESENT: alert, awake, oriented to person, oriented to place, oriented to time, oriented to situation, CN II-XII grossly intact. ABSENT: motor sensory deficit Psychiatric exam: PRESENT: appropriate affect, normal mood. ABSENT: homicidal ideation, suicidal ideation Skin exam: PRESENT: dry, intact, warm. ABSENT: cyanosis, rash Results Laboratory Results: 05/20/19 18:00 05/20/19 18:00 05/20/19 05/20/19 05/20/19 18:00 18:00 18:00 WBC 18.0 H RBC 4.78 Hgb 13.1 Hct 40.1 MCV 84 MCH 27.4 MCHC 32.7 RDW 16.7 H Plt Count 269 Seg Neutrophils % 73.2 Carbonic Acid HCO3/H2CO3 Ratio ABG pH ABG pCO2 ABG pO2 ABG HCO3 ABG O2 Saturation ABG Base Excess FiO2 Sodium 131.1 L Potassium 4.1 Chloride 92 L Carbon Dioxide 33 H Anion Gap 6 BUN 11 Creatinine 0.60 Est GFR ( Amer) > 60 Glucose 101 Lactic Acid 1.7 Calcium 8.7 05/20/19 18:00 WBC RBC Hgb Hct MCV MCH MCHC RDW Plt Count Seg Neutrophils % Carbonic Acid 1.38 H HCO3/H2CO3 Ratio 22:1 ABG pH 7.45 ABG pCO2 45.7 H ABG pO2 74.2 L ABG HCO3 30.7 H ABG O2 Saturation 95.3 ABG Base Excess 5.7 FiO2 2L Sodium Potassium Chloride Carbon Dioxide Anion Gap BUN Creatinine Est GFR ( Amer) Glucose Lactic Acid Calcium Impressions: Chest X-Ray 05/20/19 00:00 IMPRESSION: Asymmetric parenchymal opacity in the inferior right hemithorax. Clinical correlation to exclude a right lower lobe pneumonia is recommended. Assessment and Plan - Diagnosis (1) Pneumonia Qualifiers: Pneumonia type: due to unspecified organism Laterality: right Lung location: lower lobe of lung Qualified Code(s): J18.9 - Pneumonia, unspecified organism Is this a current diagnosis for this admission?: Yes Plan: Complicated by COPD and chronic bronchitis. Covid 19 testing and precautions initiated. Empiric treatment for healthcare associated pneumonia with vancomycin and aztreonam given multiple allergies. Follow-up CBC and blood culture (2) Fever Qualifiers: Fever type: unspecified Qualified Code(s): R50.9 - Fever, unspecified Is this a current diagnosis for this admission?: Yes Plan: Secondary to #1, Tylenol as needed (3) Hypoxemia Is this a current diagnosis for this admission?: Yes Plan: Avoid medications reducing respiratory drive, incentive spirometry, supplemental oxygen (4) Chronic pain Qualifiers: Chronic pain type: chronic pain syndrome Qualified Code(s): G89.4 - Chronic pain syndrome Is this a current diagnosis for this admission?: Yes Plan: Suboxone dependent chronic pain complicating pneumonia with reduction in respiratory drive and hypotension. Wean narcotics avoiding withdrawal (5) Hypotension (arterial) Qualifiers: Hypotension type: unspecified hypotension type Qualified Code(s): I95.9 - Hypotension, unspecified Is this a current diagnosis for this admission?: Yes Plan: Unresponsive to IV fluid challenge, most likely secondary to Suboxone given reversal with Narcan. Suspected surreptitious Suboxone use. Narcan as needed hypotension ordered. - Time Time Spent with patient: 25-34 minutes - Inpatient Certification Medical Necessity: Need Close Monitoring Due to Risk of Patient Decompensation
[2019-05-21] MEDS ORDERED: VANCOMYCIN HCL 1,000 MG in DEXTROSE 5%-WATER 250 ML IV ONE (05:00)
[2019-05-21] MEDS: NORMAL SALINE 1000 ML 1,000 ML IV PRN (05:18)
[2019-05-21] MEDS ORDERED: AZTREONAM INJ 1 GM VIAL ONE (05:40)
[2019-05-21 05:59] LABS: ABSOLUTE BASOPHILS # (AUTO) 0.1 10^3/uL (0.0-0.2); ABSOLUTE EOSINOPHILS # (AUTO) 0.1 10^3/uL (0.0-0.6); ABSOLUTE LYMPHOCYTES (AUTO) 2.4 10^3/uL (0.5-4.7); ABSOLUTE MONOCYTES (AUTO) 0.6 10^3/uL (0.1-1.4); BASOPHILS % (AUTO) 0.6 % (0-2); EOSINOPHILS % (AUTO) 0.7 % (0-6); HEMATOCRIT 34.9 % (36.0-47.0); HEMOGLOBIN 11.5 g/dL (12.0-15.5); LYMPHOCYTES % (AUTO) 16.9 % (13-45); MEAN CORPUSCULAR HEMOGLOBIN 27.7 pg (27.0-33.4); MEAN CORPUSCULAR VOLUME 84 fl (80-97); MONOCYTES % (AUTO) 4.1 % (3-13); PLATELET COUNT 214 10^3/uL (150-450); RED BLOOD COUNT 4.17 10^6/uL (3.72-5.28); RED CELL DISTRIBUTION WIDTH 17.1 % (11.5-14.0); SEGMENTED NEUTROPHILS % (AUTO) 77.7 % (42-78); TOTAL CELLS COUNTED % (AUTO) 100 %; WHITE BLOOD COUNT 14.1 10^3/uL (4.0-10.5)
[2019-05-21] MEDS ORDERED: AZTREONAM 1 GM in DEXTROSE 5%-WATER 50 ML IV SCH (06:00)
[2019-05-21] MEDS ORDERED: HYDROCORTISONE SOD SUCCINATE INJ/PF 100 MG/2 ML SDV IV SCH (06:00)
[2019-05-21] MEDS ORDERED: HEPARIN SOD (PORCINE) 5,000 UNIT/ML 1 ML VIAL SUBCUT SCH (06:00)
[2019-05-21] MEDS: GABAPENTIN 300 MG CAPSULE PO SCH (06:13)
[2019-05-21 06:19] LABS: ANION GAP 5 (5-19); BLOOD UREA NITROGEN 11 mg/dL (7-20); CALCIUM 8.1 mg/dL (8.4-10.2); CARBON DIOXIDE 28 mmol/L (22-30); CHLORIDE 102 mmol/L (98-107); GLUCOSE 101 mg/dL (75-110); POTASSIUM 4.3 mmol/L (3.6-5.0)
[2019-05-21] MEDS ORDERED: PHARMACY COMMUNICATION ORDER MC SCH (08:00)
[2019-05-21 09:17] VITALS: BP 101/72
[2019-05-21] MEDS ORDERED: ALBUTEROL SULFATE HFA (90 MCG/PUFF) 8 GM MDI IH SCH (10:00)
[2019-05-21] MEDS ORDERED: IPRATROPIUM BROMIDE 0.06% NASAL SPRAY 15 ML NASL SCH (10:00)
[2019-05-21] MEDS ORDERED: PREDNISONE 20 MG TABLET PO SCH (10:00)
[2019-05-21] MEDS ORDERED: FLUOXETINE HCL 20 MG CAPSULE PO SCH (10:00)
[2019-05-21] MEDS ORDERED: ALBUTEROL SULFATE HFA (90 MCG/PUFF) 8 GM MDI IH PRN (10:02)
[2019-05-21] MEDS: GUAIFENESIN 600 MG TABLET.SA PO SCH (11:18)
[2019-05-21] MEDS ORDERED: BUPRENORPHINE HCL 2 MG SUBLINGUAL TABLET SL ONE (14:00)
--- NOTE | 2019-05-21 14:25 | PDOC PROGRESS REPORT ---
Subjective Progress Note for:: 05/21/19 Subjective:: Patient still having some shortness of breath this morning. Denies fever or chills. Still having some coughing. Reason For Visit: HYPOTENSION,ADRENAL INSUFFICIENCY,OPIATE DEPENDENC Physical Exam Vital Signs: Temp Pulse Resp BP Pulse Ox 98.3 F 71 17 101/72 98 05/21/19 08:20 05/21/19 08:20 05/21/19 08:20 05/21/19 08:20 05/21/19 08:20 Intake & Output 05/20/19 05/21/19 05/22/19 06:59 06:59 06:59 Intake Total 3800 Balance 3800 Weight 87.5 kg General appearance: PRESENT: no acute distress, cooperative Respiratory exam: PRESENT: symmetrical, unlabored. ABSENT: tachypnea, wheezes Cardiovascular exam: PRESENT: RRR, +S1, +S2. ABSENT: tachycardia GI/Abdominal exam: PRESENT: soft. ABSENT: rebound, rigid, tenderness Neurological exam: PRESENT: alert, awake, oriented to person, oriented to place, oriented to time, oriented to situation Results Laboratory Results: 05/21/19 05:38 05/21/19 05:38 05/20/19 05/20/19 05/20/19 18:00 18:00 18:00 WBC 18.0 H RBC 4.78 Hgb 13.1 Hct 40.1 MCV 84 MCH 27.4 MCHC 32.7 RDW 16.7 H Plt Count 269 Seg Neutrophils % 73.2 Carbonic Acid HCO3/H2CO3 Ratio ABG pH ABG pCO2 ABG pO2 ABG HCO3 ABG O2 Saturation ABG Base Excess FiO2 Sodium 131.1 L Potassium 4.1 Chloride 92 L Carbon Dioxide 33 H Anion Gap 6 BUN 11 Creatinine 0.60 Est GFR ( Amer) > 60 Glucose 101 Lactic Acid 1.7 Calcium 8.7 05/20/19 05/21/19 05/21/19 18:00 05:38 05:38 WBC 14.1 H RBC 4.17 Hgb 11.5 L Hct 34.9 L MCV 84 MCH 27.7 MCHC 33.0 RDW 17.1 H Plt Count 214 Seg Neutrophils % 77.7 Carbonic Acid 1.38 H HCO3/H2CO3 Ratio 22:1 ABG pH 7.45 ABG pCO2 45.7 H ABG pO2 74.2 L ABG HCO3 30.7 H ABG O2 Saturation 95.3 ABG Base Excess 5.7 FiO2 2L Sodium 135.2 L Potassium 4.3 Chloride 102 Carbon Dioxide 28 Anion Gap 5 BUN 11 Creatinine 0.43 L Est GFR ( Amer) > 60 Glucose 101 Lactic Acid Calcium 8.1 L 05/20/19 17:03 Throat Throat Culture - Final Group A Beta Streptococcus Normal [place] Impressions: Chest X-Ray 05/20/19 00:00 IMPRESSION: Asymmetric parenchymal opacity in the inferior right hemithorax. Clinical correlation to exclude a right lower lobe pneumonia is recommended. Assessment and Plan - Diagnosis (1) Pneumonia Qualifiers: Pneumonia type: due to unspecified organism Laterality: right Lung location: lower lobe of lung Qualified Code(s): J18.9 - Pneumonia, unspecified organism Is this a current diagnosis for this admission?: Yes (2) Fever Qualifiers: Fever type: unspecified Qualified Code(s): R50.9 - Fever, unspecified Is this a current diagnosis for this admission?: Yes (3) Hypoxemia Is this a current diagnosis for this admission?: Yes (4) Hypotension Qualifiers: Hypotension type: unspecified hypotension type Qualified Code(s): I95.9 - Hypotension, unspecified Is this a current diagnosis for this admission?: Yes (5) Encounter for observation for suspected exposure to other biological agents ruled out Is this a current diagnosis for this admission?: Yes - Plan Summary Summary: Vancomycin and aztreonam for recurrent pneumonia. No wheezing on exam. Nebs changed to MDI for treatment of patient's COPD. No active wheezing during my exam. Supportive care Plan was to restart patient's Suboxone however patient all of a sudden was unable to find her Suboxone tablets which she had with her earlier. We have told patient that she will not be receiving Suboxone from us unless she can handover her home Suboxone tablets which she suddenly states that she lost. I was subsequently notified by primary nurse that patient had left AMA. Infectious control notified to reach out to Department of Health to follow-up given the patient's COVID 19 test is still pending. - Time Time Spent with patient: Less than 15 minutes
--- NOTE | 2019-05-21 14:26 | Left Against Medical Advice ---
Against Medical Advice Admission Date/Time: 05/20/19 19:47 Primary Care Provider: [facility] Date of Patient Emigration: 05/21/19 - Diagnosis: (1) Pneumonia Is this a current diagnosis for this admission?: Yes (2) Fever Is this a current diagnosis for this admission?: Yes (3) Hypoxemia Is this a current diagnosis for this admission?: Yes (4) Hypotension Is this a current diagnosis for this admission?: Yes (5) Encounter for observation for suspected exposure to other biological agents ruled out Is this a current diagnosis for this admission?: Yes - Summary: Summary: Please see Admission and Progress Notes as well. ALLYSON OVERTON is a 53 F, who LEFT AGAINST MEDICAL ADVICE. The Patient was admitted on 05/20/19 19:47.
[2019-05-21] MEDS ORDERED: VANCOMYCIN HCL 1,250 MG in DEXTROSE 5%-WATER 250 ML IV SCH (16:00)
[2019-05-21] MEDS ORDERED: BUPRENORPHINE HCL 2 MG SUBLINGUAL TABLET SL SCH ×2 (18:00→22:00)
== END 2019-05-21 13:45 | disposition left against medical advice (07) | DRG 194 ==
LOC: ER 16:47 → OBSVTOIN 19:47 → EH 19:47 → 5 22:34
PROVIDERS: ADMIT Internal Medicine; ATTEND Internal Medicine
DX: J18.9 Pneumonia, unspecified organism (principal); F11.20 Opioid dependence, uncomplicated; J44.0 Chronic obstructive pulmonary disease with (acute) lower respiratory infection; J44.9 Chronic obstructive pulmonary disease, unspecified; M19.90 Unspecified osteoarthritis, unspecified site; I95.89 Other hypotension; G89.29 Other chronic pain; F17.210 Nicotine dependence, cigarettes, uncomplicated; R09.02 Hypoxemia; Z85.3 Personal history of malignant neoplasm of breast; Z82.49 Family history of ischemic heart disease and other diseases of the circulatory system; Z88.0 Allergy status to penicillin; Z88.1 Allergy status to other antibiotic agents; Z91.030 Bee allergy status; Z88.8 Allergy status to other drugs, medicaments and biological substances
CPT/HCPCS: 36415; 71045; 80048; 82533; 82803; 83605; 85025; 85652; 87040; 87070; 87077; 87635; 87804; 87880; 94799; 96361; 96365; 96367; 96375; 99285; J1720; J1885; J2270; J2310; J3370; J3490; J7030; J7060; J7512

== ENCOUNTER 2019-12-05 15:39 | Emergency (ER) | payer SELFPAY ==
--- NOTE | 2019-12-05 16:01 | ER Document Report ---
ED Medical Screen (RME) - General Chief Complaint: Dog Bite Stated Complaint: DOG BITE Time Seen by Provider: 12/05/19 15:52 Primary Care Provider: [facility] [Primary Care Provider] - Follow up as needed Mode of Arrival: Ambulatory Information source: Patient Notes: HPI; 54-year-old female presents to the emergency room with a dog bite to her right hand. Patient states it hurts her daughters patsy that she had taken for a walk. States the dog dragged a stick into the house when she attempted to get the dog growled at her.. She states the dog turned his head she assumed he dropped the stick she went to grab it when he bit her right hand. Bleeding is persistent. Patient is up-to-date with her vaccines. Unknown vaccine status of the dog. Patient is right-handed. PE: Alert and oriented x3. Mild distress noted. Lungs: Clear to auscultation without rales, rhonchi, wheezes. Heart: Regular rate rhythm without murmurs, rubs, gallops. There is a 4 cm laceration noted to the dorsal aspect of the right hand with persistent bleeding. Wound was dressed in triage. She has a positive right radial pulse. Capillary refill less than 3 seconds. I have greeted and performed a rapid initial assessment of this patient. A comprehensive ED assessment and evaluation of the patient, analysis of test results and completion of the medical decision making process will be conducted by additional ED providers. I have specifically instructed the patient or family members with the patient to immediately return to any nursing staff should anything change in the patient's condition or with their chief complaint. TRAVEL OUTSIDE OF THE [place] IN LAST 30 DAYS: No - Related Data Allergies/Adverse Reactions: bee venom protein (honey bee) Allergy (Verified 04/27/19 10:23) Anaphylaxis ceftriaxone [From Rocephin] Allergy (Verified 04/27/19 10:23) Hives erythromycin base [Erythromycin Base] Allergy (Verified 04/27/19 10:23) Hives naloxone Allergy (Verified 08/25/18 15:04) Anaphylaxis Penicillins Allergy (Verified 04/27/19 10:23) Hives Home Medications: Gabapentin, HCTZ, Trazadone, Suboxone Past Medical History - Past Medical History Cardiac Medical History: Reports: Hx Hypertension Denies: Hx Congestive Heart Failure, Hx Coronary Artery Disease, Hx DVT, Hx Heart Attack, Hx Hypercholesterolemia, Hx Pulmonary Embolism Pulmonary Medical History: Reports: Hx Asthma, Hx Bronchitis, Hx COPD, Hx Pneumonia Neurological Medical History: Reports: Hx Migraine. Denies: Hx Seizures Endocrine Medical History: Denies: Hx Diabetes Mellitus Type 1, Hx Diabetes Mellitus Type 2, Hx Hyperthyroidism, Hx Hypothyroidism Renal/ Medical History: Denies: Hx Peritoneal Dialysis Malignancy Medical History: Reports: Hx Breast Cancer - Bilateral GI Medical History: Denies: Hx Cirrhosis, Hx Hepatitis Musculoskeltal Medical History: Reports Hx Arthritis - Degenerative disc disease, Denies Hx Gout, Reports Hx Musculoskeletal Deformity, Reports Hx Musculoskeletal Trauma - Right MCL right rotator cuff Skin Medical History: Denies Hx Eczema, Denies Hx Psoriasis Psychiatric Medical History: Reports: Hx Depression Infectious Medical History: Denies: Hx Hepatitis Past Surgical History: Reports: Hx Breast Surgery - bilateral, Hx Section - 3, Hx Cholecystectomy, Hx Orthopedic Surgery - Right knee MCL right shoulder rotator cuff - Immunizations Immunizations up to date: Yes Hx Diphtheria, Pertussis, Tetanus Vaccination: Yes Physical Exam - Vital signs Vitals: Temp Pulse Resp BP Pulse Ox 98.7 F 72 16 151/91 H 100 12/05/19 15:48 12/05/19 15:48 12/05/19 15:48 12/05/19 15:48 12/05/19 15:48 Course - Vital Signs Vital signs: Temp Pulse Resp BP Pulse Ox 98.7 F 72 16 151/91 H 100 12/05/19 15:48 12/05/19 15:48 12/05/19 15:48 12/05/19 15:48 12/05/19 15:48 Doctor's Discharge - Discharge Referrals: [facility] [Primary Care Provider] - Follow up as needed
--- NOTE | 2019-12-05 16:41 | RADIOLOGY REPORT (SQ) ---
EXAM DESCRIPTION: HAND RIGHT 3 VIEWS IMAGES COMPLETED DATE/TIME: 12/05/2019 4:28 pm REASON FOR STUDY: injury COMPARISON: None. EXAM PARAMETERS: NUMBER OF VIEWS: Three views. TECHNIQUE: AP, lateral and oblique radiographic images acquired of the right hand. LIMITATIONS: None. FINDINGS: MINERALIZATION: Normal. BONES: No acute fracture or dislocation. No worrisome bone lesions. JOINTS: No effusion. SOFT TISSUES: 5th MCP soft tissue swelling. No radiopaque foreign body. OTHER: No other significant finding. IMPRESSION: NO FRACTURE. TECHNICAL DOCUMENTATION: JOB ID: [id number] [id number] 2010 [employer]- All Rights Reserved Reading location - IP/workstation name: [email or web address]
[2019-12-05] MEDS ORDERED: LIDOCAINE 1% INJ-PF (10 MG/ML) 30 ML SDV INJ ONE (17:58)
--- NOTE | 2019-12-05 17:58 | ER Document Report ---
ED General - General Chief Complaint: Dog Bite Stated Complaint: DOG BITE Time Seen by Provider: 12/05/19 15:52 Primary Care Provider: [facility] [NO LOCAL MD] - Follow up as needed Mode of Arrival: Ambulatory Notes: Patient is a 54-year-old white female with no pertinent past medical history presents the emergency department chief complaint of dog bite to the right hand that occurred prior to arrival. Patient reports she was walking her daughter's dog that is an indoor dog when it picked up a dirty stick and tried to bring it into the house. She states the dog is very protective of his personal things such as toys and dolls. She states she wanted to get the dirty stick out of the house and she thought he looked away she went to grab the stick and he turned and snapped at her hand biting the ulnar edge of the distal right hand dorsally. She states the dog has his rabies vaccine. She reports her tetanus was updated within the last 5 years. She admits to some slight tingling in the small finger of the right hand. She denies any uncontrollable bleeding. No weakness or decrease in range of motion or strength. TRAVEL OUTSIDE OF THE [place] IN LAST 30 DAYS: No - Related Data Allergies/Adverse Reactions: bee venom protein (honey bee) Allergy (Verified 04/27/19 10:23) Anaphylaxis ceftriaxone [From Rocephin] Allergy (Verified 04/27/19 10:23) Hives erythromycin base [Erythromycin Base] Allergy (Verified 04/27/19 10:23) Hives naloxone Allergy (Verified 08/25/18 15:04) Anaphylaxis Penicillins Allergy (Verified 04/27/19 10:23) Hives Home Medications: Gabapentin, HCTZ, Trazadone, Suboxone Past Medical History - General Information source: Patient - Social History Smoking Status: Current Every Day Smoker Family History: Hypertension - Past Medical History Cardiac Medical History: Reports: Hx Hypertension Denies: Hx Congestive Heart Failure, Hx Coronary Artery Disease, Hx DVT, Hx Heart Attack, Hx Hypercholesterolemia, Hx Pulmonary Embolism Pulmonary Medical History: Reports: Hx Asthma, Hx Bronchitis, Hx COPD, Hx Pneumonia Neurological Medical History: Reports: Hx Migraine. Denies: Hx Seizures Endocrine Medical History: Denies: Hx Diabetes Mellitus Type 1, Hx Diabetes Mellitus Type 2, Hx Hyperthyroidism, Hx Hypothyroidism Renal/ Medical History: Denies: Hx Peritoneal Dialysis Malignancy Medical History: Reports: Hx Breast Cancer - Bilateral GI Medical History: Denies: Hx Cirrhosis, Hx Hepatitis Musculoskeletal Medical History: Reports Hx Arthritis - Degenerative disc disease, Denies Hx Gout, Reports Hx Musculoskeletal Deformity, Reports Hx Musculoskeletal Trauma - Right MCL right rotator cuff Skin Medical History: Denies Hx Eczema, Denies Hx Psoriasis Psychiatric Medical History: Reports: Hx Depression Infectious Medical History: Denies: Hx Hepatitis Past Surgical History: Reports: Hx Breast Surgery - bilateral, Hx Section - 3, Hx Cholecystectomy, Hx Orthopedic Surgery - Right knee MCL right shoulder rotator cuff - Immunizations Immunizations up to date: Yes Hx Diphtheria, Pertussis, Tetanus Vaccination: Yes Review of Systems - Review of Systems Constitutional: denies: Fever EENT: denies: Nose pain Cardiovascular: denies: Dyspnea Respiratory: denies: Short of breath Gastrointestinal: denies: Vomiting Genitourinary: denies: Frequency Female Genitourinary: denies: Vaginal discharge Musculoskeletal: denies: Neck pain Skin: Lesions Neurological/Psychological: denies: Lost consciousness Physical Exam - Vital signs Vitals: Temp Pulse Resp BP Pulse Ox 98.7 F 72 16 151/91 H 100 12/05/19 15:48 12/05/19 15:48 12/05/19 15:48 12/05/19 15:48 12/05/19 15:48 - General General appearance: Appears well, Alert In distress: None - Respiratory Respiratory status: No respiratory distress Chest status: Nontender Breath sounds: Normal Chest palpation: Normal - Cardiovascular Rhythm: Regular Heart sounds: Normal auscultation - Extremities Hand: Other - Full passive range of motion of the hand in all the digits on the right. The digits fourth and fifth distal to the injury on the right have full range of motion with and without resistance. No visible tendon injury. No obvious contamination of the wound or foreign body visualized. There is a C- shaped flap-like laceration that is approximately 4 cm from end to end. Flap approximates well. - Neurological Neuro grossly intact: Yes Cognition: Normal Orientation: AAOx4 - Psychological Associated symptoms: Normal affect, Normal mood - Skin Skin Color: Other - Laceration from dog bite to the right hand described above Course - Re-evaluation Re-evalutation: 12/05/19 19:02 X-ray showing no acute bony injury or radiopaque foreign body per radiologist. Flap-like wound was tacked down loosely approximated given that it is a dog bite wound. Left loose for drainage and healing. Patient replaced Augmentin. Given a short course of [place]. Counseled her regarding the importance of outpatient follow-up in 2 to 3 days for wound recheck and reevaluation. Suture removal in approximately 7 to 10 days. Advise she return here or any ER immediately with any new, persistent or worsening symptoms. She verbalized understood and agreed. 12/05/19 19:03 - Vital Signs Vital signs: Temp Pulse Resp BP Pulse Ox 98.7 F 72 16 151/91 H 100 12/05/19 15:48 12/05/19 15:48 12/05/19 15:48 12/05/19 15:48 12/05/19 15:48 Procedures - Laceration/Wound Repair Right Hand Time completed: 19:01 Wound length (cm): 4 Wound's Depth, Shape: Flap Laceration pre-procedure: Sterile PPE donned Anesthetic type: 1% Lidocaine Volume Anesthetic (mLs): 8 Wound explored: Clean, No foreign body removed Irrigated w/ Saline (mLs): 500 Wound Repaired With: Sutures Suture Size/Type: 4:0, Prolene Number of Sutures: 3 - Loosely approximated Layer Closure?: No Post-procedure wound care: Sterile dressing applied Post-procedure NV exam normal: Yes Complications: No Discharge - Discharge Clinical Impression: Dog bite Qualifiers: Encounter type: initial encounter Qualified Code(s): W54.0XXA - Bitten by dog, initial encounter Hand laceration Qualifiers: Encounter type: initial encounter Foreign body presence: without foreign body Laterality: right Qualified Code(s): S61.411A - Laceration without foreign body of right hand, initial encounter Condition: Stable Disposition: HOME, SELF-CARE Instructions: Animal Bites ([facility]) Additional Instructions: Please follow-up in 2 to 3 days with your regular doctor for wound recheck. Suture removal in approximately 7 to 10 days. Please return here or any ER immediately with any new, persistent or worsening symptoms. Prescriptions: Amoxicillin/Potassium Clav [Augmentin 875-125 Tablet] 1 tab PO Q12 #20 tablet Hydrocodone/Acetaminophen [Iola 5-325 mg Tablet] 1 tab PO Q6 PRN #10 tablet PRN Reason: Referrals: [facility] [NO LOCAL MD] - Follow up as needed
[2019-12-05] MEDS ORDERED: TRAMADOL HCL 50 MG TABLET PO ONE (17:59)
[2019-12-05] MEDS ORDERED: AMOXICILLIN TR/POT CLAVULANATE 875-125 MG TAB PO ONE (17:59)
[2019-12-05 19:37] VITALS: BP 136/82
[2019-12-05] MEDS ORDERED: HYDROCODONE/ACETAMINOPHEN 5-325 MG (6 TAB/ER DISP) PO PRN (19:54)
== END 2019-12-05 19:35 | disposition home or self-care (01) ==
LOC: ER 15:39
DX: S61.451A Open bite of right hand, initial encounter (principal); R20.2 Paresthesia of skin; W54.0XXA Bitten by dog, initial encounter; Y93.K1 Activity, walking an animal; Y92.009 Unspecified place in unspecified non-institutional (private) residence as the place of occurrence of the external cause; R11.2 Nausea with vomiting, unspecified; R19.7 Diarrhea, unspecified; T36.0X5A Adverse effect of penicillins, initial encounter; T36.1X5A Adverse effect of cephalosporins and other beta-lactam antibiotics, initial encounter; F17.200 Nicotine dependence, unspecified, uncomplicated; J44.9 Chronic obstructive pulmonary disease, unspecified; I10 Essential (primary) hypertension; F32.9 Major depressive disorder, single episode, unspecified; Z79.899 Other long term (current) drug therapy; Z87.892 Personal history of anaphylaxis; Z91.030 Bee allergy status; Z88.8 Allergy status to other drugs, medicaments and biological substances; Z88.1 Allergy status to other antibiotic agents
CPT/HCPCS: 99284; 73130; 12002; J3490 ×2